=== PATIENT | female | born 1935 | race Caucasian/White ===

== ENCOUNTER → 2016-09-03 | Outpatient (REF) | payer OTHER ==
[~2016-09-03] MED LIST: /GLYB5TA PO; ACET65TA PO; FOSI10TA2 PO; LEVO25TA2 PO; METF500T4 PO; SIMV40TA2 PO; VICO5TAB OR; ZANT150T PO; sudafed PO
== END ==
LOC: M LAB REF 17:01
PROVIDERS: ATTEND Internal Medicine Medical Oncology
DX: C50.919 Malignant neoplasm of unspecified site of unspecified female breast (principal)

== ENCOUNTER → 2016-09-04 | Outpatient (REF) | payer OTHER | LOC: M SFHCADAM 07:58 | PROVIDERS: ATTEND Physician Assistant Medical | DX: E78.4 Other hyperlipidemia (principal); E11.9 Type 2 diabetes mellitus without complications; E03.9 Hypothyroidism, unspecified ==

== ENCOUNTER → 2016-09-08 | Outpatient (REF) | payer OTHER ==
[2016-09-08 13:52] LABS: BASO % 0.5 % (0.0-1.0); EOS # 0.2 K/mm3 (0.0-0.50); EOS % 3.9 % (0.0-3.0); LARGE UNSTAINED CELL # 0.1 K/mm3 (0.0-0.4); LARGE UNSTAINED CELL % 1.3 % (0.0-4.0); LYMPH # 1.8 K/mm3 (1.5-4.5); LYMPH % 27.4 % (24.0-44.0); MEAN CORPUSCULAR HEMOGLOBIN 28.1 pg (27.0-33.0); MEAN CORPUSCULAR HGB CONC 32.3 g/dl (32.0-36.5); MEAN CORPUSCULAR VOLUME 87.2 fl (80.0-96.0); MONO # 0.4 K/mm3 (0.0-0.8); MONO % 6.1 % (0.0-5.0); NEUTROPHILS # 3.9 K/mm3 (1.8-7.7); NEUTROPHILS % 60.9 % (36.0-66.0); PLATELET COUNT, AUTOMATED 185 k/mm3 (150-450); RED CELL DISTRIBUTION WIDTH 12.4 % (11.5-14.5); WHITE BLOOD COUNT 6.3 K/mm3 (4.0-10.0)
[2016-09-08 14:12] LABS: ALBUMIN/GLOBULIN RATIO 1.43 (1.00-1.93); ALKALINE PHOSPHATASE 80 U/L (45-117); ALT/SGPT 48 U/L (12-78); ANION GAP 9 MEQ/L (8-16); AST/SGOT 29 U/L (15-37); BILIRUBIN,TOTAL 0.6 MG/DL (0.2-1.0); BLOOD UREA NITROGEN 16 MG/DL (7-18); CALCIUM LEVEL 9.8 MG/DL (8.8-10.2); CARBON DIOXIDE LEVEL 25 MEQ/L (21-32); CHLORIDE LEVEL 105 MEQ/L (98-107); CHOLESTEROL LEVEL 147 MG/DL (<200); CREATININE FOR GFR 0.94 MG/DL (0.55-1.02); GLOMERULAR FILTRATION RATE > 60.0 (>39); GLUCOSE, FASTING 276 MG/DL (83-110); POTASSIUM SERUM 4.8 MEQ/L (3.5-5.1); SODIUM LEVEL 139 MEQ/L (136-145); TOTAL PROTEIN 6.8 GM/DL (6.4-8.2); TRIGLYCERIDES LEVEL 157 MG/DL (<150)
== END ==
LOC: M SFHCADAM 07:55
PROVIDERS: ATTEND Physician Assistant Medical
DX: E78.4 Other hyperlipidemia (principal); E11.9 Type 2 diabetes mellitus without complications; E03.9 Hypothyroidism, unspecified

== ENCOUNTER → 2016-12-23 | Outpatient (REF) | payer OTHER ==
[~2016-12-23] MED LIST changes: +AUGM875T28 PO; +NYST50SS SS
[2016-12-23 13:03] LABS: ALBUMIN 3.8 GM/DL (3.2-5.2); ALBUMIN/GLOBULIN RATIO 1.27 (1.00-1.93); BILIRUBIN,TOTAL 0.4 MG/DL (0.2-1.0); CALCIUM LEVEL 9.9 MG/DL (8.8-10.2); CREATININE FOR GFR 1.03 MG/DL (0.55-1.02); POTASSIUM SERUM 4.3 MEQ/L (3.5-5.1); TOTAL PROTEIN 6.8 GM/DL (6.4-8.2)
== END ==
LOC: M SFHCADAM 08:03
PROVIDERS: ATTEND Physician Assistant Medical
DX: E11.9 Type 2 diabetes mellitus without complications (principal)

== ENCOUNTER → 2017-02-25 | Outpatient (REF) | payer OTHER ==
[2017-02-25 20:21] LABS: FOLATE 12.3 NG/ML
== END ==
LOC: M SFHCADAM 13:53
PROVIDERS: ATTEND Physician Assistant
DX: K14.6 Glossodynia (principal); G62.9 Polyneuropathy, unspecified
CPT/HCPCS: 82607; 82746; G0463

== ENCOUNTER 2017-03-01 04:01 | Emergency (ER) | payer OTHER ==
[~2017-03-01] VITALS: Ht 170.2 cm; Wt 82.0 kg
[~2017-03-01 04:01] MED LIST changes: -AUGM875T28 PO; -NYST50SS SS
[2017-03-01] MEDS ORDERED: NYST50SS SS (04:12)
[2017-03-01] MEDS ORDERED: AUGM875T28 PO (06:35)
[2017-03-01] MEDS ORDERED: AUGMENTIN 875 MG TAB PO ONE (06:45)
[2017-03-01 07:03] VITALS: BP 177/81
== END 2017-03-01 07:05 | disposition home or self-care (01) ==
LOC: M ED 04:01
DX: J06.9 Acute upper respiratory infection, unspecified (principal); J02.9 Acute pharyngitis, unspecified; J44.9 Chronic obstructive pulmonary disease, unspecified; Z87.891 Personal history of nicotine dependence; E78.00 Pure hypercholesterolemia, unspecified; I10 Essential (primary) hypertension; K21.9 Gastro-esophageal reflux disease without esophagitis; C50.919 Malignant neoplasm of unspecified site of unspecified female breast; E11.9 Type 2 diabetes mellitus without complications; E03.9 Hypothyroidism, unspecified; M54.5 Low back pain; Z79.84 Long term (current) use of oral hypoglycemic drugs; Z79.899 Other long term (current) drug therapy

== ENCOUNTER → 2017-06-29 | Outpatient (REF) | payer OTHER ==
[2017-06-29 13:39] LABS: BASO # 0.1 10^3/uL (0.0-0.2); BASO % 0.9 % (0.0-1.0); EOS # 0.2 10^3/uL (0.0-0.50); EOS % 3.5 % (0.0-3.0); HEMATOCRIT 42.2 % (36.0-47.0); HEMOGLOBIN 13.4 g/dl (12.0-16.0); IMMATURE GRANULOCYTE % 0.3 % (0-0); LYMPH # 1.5 10^3/uL (1.5-4.5); LYMPH % 23.4 % (24.0-44.0); MEAN CORPUSCULAR HEMOGLOBIN 27.5 pg (27.0-33.0); MEAN CORPUSCULAR HGB CONC 31.8 g/dl (32.0-36.5); MEAN CORPUSCULAR VOLUME 86.7 fl (80.0-96.0); MONO # 0.5 10^3/uL (0.0-0.8); MONO % 7.3 % (0.0-5.0); NEUTROPHILS # 4.3 10^3/uL (1.8-7.7); NEUTROPHILS % 64.6 % (36.0-66.0); PLATELET COUNT, AUTOMATED 169 10^3/uL (150-450); RED BLOOD COUNT 4.87 10^6/uL (4.00-5.40); RED CELL DISTRIBUTION WIDTH 13.1 % (11.5-14.5); WHITE BLOOD COUNT 6.6 10^3/uL (4.0-10.0)
[2017-06-29 14:00] LABS: ESTIMATED AVERAGE GLUCOSE 212 MG/DL (60-110); TOTAL 25(OH) VITAMIN D 14.2 NG/ML (30.0-100.0)
[2017-06-29 14:09] LABS: ALBUMIN 3.7 GM/DL (3.2-5.2); ALBUMIN/GLOBULIN RATIO 1.19 (1.00-1.93); ALKALINE PHOSPHATASE 76 U/L (45-117); ALT/SGPT 31 U/L (12-78); ANION GAP 9 MEQ/L (8-16); AST/SGOT 29 U/L (7-37); BILIRUBIN,TOTAL 0.4 MG/DL (0.2-1.0); BLOOD UREA NITROGEN 15 MG/DL (7-18); CARBON DIOXIDE LEVEL 24 MEQ/L (21-32); CHLORIDE LEVEL 109 MEQ/L (98-107); CHOLESTEROL LEVEL 148 MG/DL (<200); CREATININE FOR GFR 0.88 MG/DL (0.55-1.30); FREE T4 1.07 NG/DL (0.76-1.46); GLOMERULAR FILTRATION RATE > 60.0 (>32); GLUCOSE, FASTING 230 MG/DL (70-100); HDL CHOLESTEROL 54 MG/DL (>40); LDL CHOLESTEROL 57.8 MG/DL (<100); NON-HDL-C 94 MG/DL; POTASSIUM SERUM 4.4 MEQ/L (3.5-5.1); SODIUM LEVEL 142 MEQ/L (136-145); TOTAL PROTEIN 6.8 GM/DL (6.4-8.2); TRIGLYCERIDES LEVEL 181 MG/DL (<150)
[2017-06-29 20:27] LABS: CREATININE, URINE 65.3 MG/DL; MALB URINE SIEMENS 6.8 MG/L; MAU/CREAT RATIO 10.4 MCG/MG (0.0-30.0)
== END ==
LOC: M SFHCADAM 08:10
DX: E11.9 Type 2 diabetes mellitus without complications (principal); E78.4 Other hyperlipidemia; E03.9 Hypothyroidism, unspecified; G62.9 Polyneuropathy, unspecified
CPT/HCPCS: 84443

== ENCOUNTER → 2017-10-12 | Outpatient (REF) | payer OTHER | LOC: M SFHCADAM 08:19 | DX: E11.9 Type 2 diabetes mellitus without complications (principal); E03.9 Hypothyroidism, unspecified; Z53.8 Procedure and treatment not carried out for other reasons ==

== ENCOUNTER → 2017-11-03 | Outpatient (CLI) | payer OTHER | LOC: M WHC 13:05 | DX: Z12.31 Encounter for screening mammogram for malignant neoplasm of breast (principal); Z90.12 Acquired absence of left breast and nipple; Z85.3 Personal history of malignant neoplasm of breast; Z80.3 Family history of malignant neoplasm of breast | CPT/HCPCS: 77067 ==

== ENCOUNTER 2017-11-29 21:41 | Emergency (ER) | payer OTHER ==
[2017-11-29] MEDS: ACETAMINOPH W/CODEINE #3 TAB UD PO (23:27)
[2017-11-29] MEDS: KETOROLAC TROMETHAMINE 10 MG TAB PO (23:27)
== END 2017-11-30 00:29 | disposition home or self-care (01) ==
LOC: M ED 11-30 00:29
DX: M54.2 Cervicalgia (principal); M19.90 Unspecified osteoarthritis, unspecified site; M54.12 Radiculopathy, cervical region; E11.9 Type 2 diabetes mellitus without complications; I10 Essential (primary) hypertension; E78.00 Pure hypercholesterolemia, unspecified; Z85.3 Personal history of malignant neoplasm of breast; Z90.12 Acquired absence of left breast and nipple; Z87.891 Personal history of nicotine dependence; Z79.84 Long term (current) use of oral hypoglycemic drugs; Z79.899 Other long term (current) drug therapy; Z79.891 Long term (current) use of opiate analgesic
CPT/HCPCS: 72125

== ENCOUNTER → 2018-02-04 | Outpatient (REF) | payer OTHER ==
[2018-02-04 15:27] LABS: ALBUMIN 3.8 GM/DL (3.2-5.2); ALBUMIN/GLOBULIN RATIO 1.31 (1.00-1.93); ALKALINE PHOSPHATASE 70 U/L (45-117); ALT/SGPT 31 U/L (12-78); ANION GAP 9 MEQ/L (8-16); AST/SGOT 23 U/L (7-37); BILIRUBIN,TOTAL 0.4 MG/DL (0.2-1.0); BLOOD UREA NITROGEN 16 MG/DL (7-18); CALCIUM LEVEL 10.6 MG/DL (8.8-10.2); CARBON DIOXIDE LEVEL 24 MEQ/L (21-32); CHLORIDE LEVEL 110 MEQ/L (98-107); CREATININE FOR GFR 0.89 MG/DL (0.55-1.30); GLOMERULAR FILTRATION RATE > 60.0 (>32); GLUCOSE, FASTING 176 MG/DL (70-100); POTASSIUM SERUM 4.4 MEQ/L (3.5-5.1); SODIUM LEVEL 143 MEQ/L (136-145); TOTAL PROTEIN 6.7 GM/DL (6.4-8.2)
[2018-02-04 15:44] LABS: ESTIMATED AVERAGE GLUCOSE 243 MG/DL (60-110); HEMOGLOBIN A1c 10.1 %
== END ==
LOC: M SFHCADAM 08:09
DX: E11.42 Type 2 diabetes mellitus with diabetic polyneuropathy (principal)
CPT/HCPCS: 80053

== ENCOUNTER → 2018-04-12 | Outpatient (REF) | payer OTHER ==
[2018-04-12 13:32] LABS: ALBUMIN 3.5 GM/DL (3.2-5.2); ALBUMIN/GLOBULIN RATIO 1.17 (1.00-1.93); ALKALINE PHOSPHATASE 81 U/L (45-117); ALT/SGPT 31 U/L (12-78); ANION GAP 11 MEQ/L (8-16); AST/SGOT 23 U/L (7-37); BILIRUBIN,TOTAL 0.4 MG/DL (0.2-1.0); BLOOD UREA NITROGEN 12 MG/DL (7-18); CALCIUM LEVEL 9.8 MG/DL (8.8-10.2); CARBON DIOXIDE LEVEL 22 MEQ/L (21-32); CHLORIDE LEVEL 111 MEQ/L (98-107); CHOLESTEROL LEVEL 133 MG/DL (<200); CHOLESTEROL RISK RATIO 2.607 (<5); CREATININE FOR GFR 1.01 MG/DL (0.55-1.30); GLOMERULAR FILTRATION RATE 56.1 (>32); GLUCOSE, FASTING 253 MG/DL (70-100); HDL CHOLESTEROL 51 MG/DL (>40); LDL CHOLESTEROL 35 MG/DL (<100); NON-HDL-C 82 MG/DL; POTASSIUM SERUM 4.2 MEQ/L (3.5-5.1); SODIUM LEVEL 144 MEQ/L (136-145); TOTAL PROTEIN 6.5 GM/DL (6.4-8.2); TRIGLYCERIDES LEVEL 236 MG/DL (<150)
[2018-04-12 14:03] LABS: ESTIMATED AVERAGE GLUCOSE 232 MG/DL (60-110); HEMOGLOBIN A1c 9.7 %
== END ==
LOC: M SFHCADAM 08:47
DX: E11.42 Type 2 diabetes mellitus with diabetic polyneuropathy (principal)
CPT/HCPCS: 84443

== ENCOUNTER → 2018-08-17 | Outpatient (REF) | payer OTHER ==
[~2018-08-17] MED LIST changes: +ACET-683 PO; +ACET30TAB PO; +ANAS1TAB2; +AUGM875T28 PO; +GABA-1171 PO; +JANU100T; +LEVE1INJ5 INJ; +LEVO50TA5; +METF10004; +NAPR250T82 PO; +NYST50SS SS; +RANI1SYP PO; +TRAM50TA2; +VITA50005 PO; +[UNRECOGNIZED DRUG - CODE] PO
[2018-08-17 12:50] LABS: BASO # 0.1 10^3/uL (0.0-0.2); BASO % 0.7 % (0.0-1.0); EOS # 0.3 10^3/uL (0.0-0.50); EOS % 3.7 % (0.0-3.0); HEMATOCRIT 43.1 % (36.0-47.0); HEMOGLOBIN 13.7 g/dl (12.0-15.5); LYMPH # 1.7 10^3/uL (1.5-4.5); MEAN CORPUSCULAR HEMOGLOBIN 27.5 pg (27.0-33.0); MEAN CORPUSCULAR HGB CONC 31.8 g/dl (32.0-36.5); MEAN CORPUSCULAR VOLUME 86.4 fl (80.0-96.0); MONO # 0.6 10^3/uL (0.0-0.8); MONO % 7.6 % (0.0-5.0); NEUTROPHILS % 65.7 % (36.0-66.0); PLATELET COUNT, AUTOMATED 177 10^3/uL (150-450); RED BLOOD COUNT 4.99 10^6/uL (4.00-5.40); WHITE BLOOD COUNT 7.6 10^3/uL (4.0-10.0)
[2018-08-17 12:59] LABS: ALBUMIN 3.9 GM/DL (3.2-5.2); BILIRUBIN,TOTAL 0.5 MG/DL (0.2-1.0); CHOLESTEROL RISK RATIO 2.618 (<5); CREATININE FOR GFR 1.18 MG/DL (0.55-1.30); FREE T4 1.08 NG/DL (0.76-1.46); GLOMERULAR FILTRATION RATE 46.8 (>32); POTASSIUM SERUM 3.9 MEQ/L (3.5-5.1); THYROID STIMULATING HORMONE 3.67 uIU/ML (0.358-3.740); TOTAL PROTEIN 7.2 GM/DL (6.4-8.2)
[2018-08-17 13:12] LABS: MALB URINE SIEMENS 20.3 MG/L; MAU/CREAT RATIO 14.7 MCG/MG (0.0-30.0)
[2018-08-17 13:35] LABS: HEMOGLOBIN A1c 8.5 %
== END ==
LOC: M SFHCADAM 10:30
PROVIDERS: ATTEND Physician Assistant Medical
DX: E11.42 Type 2 diabetes mellitus with diabetic polyneuropathy (principal)

== ENCOUNTER → 2018-08-25 | Outpatient (REF) | payer OTHER ==
[~2018-08-25] MED LIST changes: -/GLYB5TA PO; +ACET-716 PO; -ACET30TAB PO; +GLYB1TAB29 PO
== END ==
LOC: M LABDRWAD 12:13
PROVIDERS: ATTEND Otolaryngology
DX: D37.02 Neoplasm of uncertain behavior of tongue (principal)

== ENCOUNTER → 2019-02-21 | Outpatient (REF) | payer MEDICARE, OTHER ==
[2019-02-21 12:58] LABS: BASO # 0.1 10^3/uL (0.0-0.2); EOS # 0.3 10^3/uL (0.0-0.5); EOS % 3.9 % (0.0-3.0); HEMATOCRIT 45.9 % (36.0-47.0); HEMOGLOBIN 14.3 g/dl (12.0-15.5); LYMPH # 1.9 10^3/uL (1.5-5.0); LYMPH % 25.8 % (24.0-44.0); MEAN CORPUSCULAR HGB CONC 31.2 g/dl (32.0-36.5); MONO # 0.5 10^3/uL (0.0-0.8); MONO % 7.5 % (0.0-5.0); NEUTROPHILS # 4.4 10^3/uL (1.5-8.5); NEUTROPHILS % 61.4 % (36.0-66.0); PLATELET COUNT, AUTOMATED 188 10^3/uL (150-450); WHITE BLOOD COUNT 7.2 10^3/uL (4.0-10.0)
[2019-02-21 13:11] LABS: ALBUMIN 3.9 GM/DL (3.2-5.2); ALT/SGPT 41 U/L (12-78); BILIRUBIN,TOTAL 0.6 MG/DL (0.2-1.0); BLOOD UREA NITROGEN 15 MG/DL (7-18); CALCIUM LEVEL 10.6 MG/DL (8.8-10.2); CARBON DIOXIDE LEVEL 24 MEQ/L (21-32); CHLORIDE LEVEL 108 MEQ/L (98-107); CHOLESTEROL LEVEL 164 MG/DL (<200); CHOLESTEROL RISK RATIO 2.928 (<5); CREATININE FOR GFR 0.89 MG/DL (0.55-1.30); GLOMERULAR FILTRATION RATE > 60.0 (>32); GLUCOSE, FASTING 138 MG/DL (70-100); HDL CHOLESTEROL 56 MG/DL (>40); LDL CHOLESTEROL 76 MG/DL (<100); NON-HDL-C 108 MG/DL; POTASSIUM SERUM 4.3 MEQ/L (3.5-5.1); SODIUM LEVEL 141 MEQ/L (136-145); TOTAL 25(OH) VITAMIN D 72.5 NG/ML (30.0-100.0); TOTAL PROTEIN 7.3 GM/DL (6.4-8.2); TRIGLYCERIDES LEVEL 162 MG/DL (<150)
[2019-02-21 13:15] LABS: HEMOGLOBIN A1c 8.6 %
== END ==
LOC: M SFHCADAM 07:51
PROVIDERS: ATTEND Physician Assistant Medical
DX: E11.42 Type 2 diabetes mellitus with diabetic polyneuropathy (principal); E78.2 Mixed hyperlipidemia; E03.9 Hypothyroidism, unspecified; E55.9 Vitamin D deficiency, unspecified
CPT/HCPCS: 80053; 80061; 82306; 83036; 84443; 85025; 93005; G0463

== ENCOUNTER → 2019-03-25 | Outpatient (CLI) | payer MEDICARE ==
--- NOTE | 2019-03-28 11:03 | ECHO ---
DATE OF SERVICE: 03/25/2019 AGE: 83. REFERRING PHYSICIAN: Sherin Keita PA-C PATIENT LOCATION: Outpatient. REASON FOR THE STUDY: Left ventricular hypertrophy. 2D MEASUREMENTS: IVS: 1.1 cm LV: 3.7 cm LVPW: 1.1 cm LA: 2.5 cm Aorta: 3.0 cm RV: 2.7 cm IVC: 1.6 cm DOPPLER MEASUREMENTS: Mitral E: 1.3 Mitral A: 1.6 with a ratio of 0.8 2D COMMENTS: 1. Normal left ventricular size, wall thickness, and normal global left ventricular systolic function. The estimated left ventricular systolic ejection fraction is 60% to 65%. 2. Normal left atrium. Normal right atrium and right ventricle. 3. The atrial septum appeared to be normal without evidence of defect or shunt. 4. Normal aortic root. 5. No pericardial effusion seen. 6. Minimally calcified aortic valve with normal leaflet excursion. Normal mitral valve, tricuspid valve, and pulmonic valve. The proximal pulmonary artery branches were not well visualized. 7. The inferior vena cava was normal in size, central venous pressure is most likely normal. DOPPLER: It detects trace mitral regurgitation and trace tricuspid regurgitation, as well as trace pulmonic regurgitation. The pulmonary artery systolic pressure is most likely normal. IMPRESSION: 1. Normal global left ventricular systolic function. There are some features of left ventricular diastolic dysfunction. There were some features of grade 1 left ventricular diastolic dysfunction manifested by abnormal relaxation. 2. Aortic valve sclerosis without stenosis or aortic regurgitation. 3. Trace mitral regurgitation. 4. Trace tricuspid regurgitation. 5. Trace pulmonic regurgitation.
== END ==
LOC: M CARPUL 08:33
PROVIDERS: ATTEND Physician Assistant Medical
DX: I49.5 Sick sinus syndrome (principal); I48.91 Unspecified atrial fibrillation

== ENCOUNTER → 2019-05-20 | Outpatient (CLI) | payer MEDICARE ==
[~2019-05-20] MED LIST changes: +CONRAY-43 43% 50ML VIAL (Q9960) As Ordered ONE; +LIDOCAINE 1% MDV 20ML VIAL As Ordered ONE; +SIMV40TA20 PO; +TRIAMCINOLONE ACETONIDE SUSP 40 MG/ML VIAL (J3301) As Ordered ONE
--- NOTE | 2019-05-20 17:17 | REP ---
Reason For Exam/Comment: Primary osteoarthritis of the left ankle Procedure: Left tibiotalar arthrocentesis The procedure was performed by MYLENE Macias, under the direct supervision of Dr. Rain. The benefits and risks including but not limited to pain, infection, bleeding and anaphylaxis were explained to the patient and informed consent was obtained both verbally and written. Directly prior to the start of the procedure, a formal timeout was completed in the procedure room. The left tibiotalar joint space was localized using fluoroscopic guidance. The skin was prepped and draped in the usual sterile fashion. 5 mL of 1% lidocaine 10 mg/ml was used as a local anesthetic. Using fluoroscopic guidance a 22-gauge spinal needle was inserted and advanced to the left tibiotalar joint space . 1 mL of Conray 43 was injected to verify needle placement. A 4 mL solution containing a 3 mL 1% lidocaine 10 mg/ml and 1 ml of Kenalog 40 mg/ml was injected into the joint. The needle was removed and hemostasis was achieved. The patient tolerated the procedure well and there were no immediate complications. 0.3 minutes of fluoroscopy time was utilized for this procedure. Some fluoroscopic images are performed with last image hold technology. These images require no additional radiation. Reviewed by MYLENE Youssef 05/20/2019 04:06 P Electronically Signed by Masood Rain MD 05/20/2019 05:08 P
== END ==
LOC: M RADPRO 13:18
PROVIDERS: ATTEND Physician Assistant Medical
DX: M19.072 Primary osteoarthritis, left ankle and foot (principal)
CPT/HCPCS: 20605; 77002; J3301; Q9960

== ENCOUNTER → 2019-09-10 | Outpatient (REF) | payer MEDICARE ==
[~2019-09-10] MED LIST changes: -CONRAY-43 43% 50ML VIAL (Q9960) As Ordered ONE; -LIDOCAINE 1% MDV 20ML VIAL As Ordered ONE; -TRIAMCINOLONE ACETONIDE SUSP 40 MG/ML VIAL (J3301) As Ordered ONE
[2019-09-10 17:35] LABS: ALT/SGPT 33 U/L (12-78); BLOOD UREA NITROGEN 16 MG/DL (7-18); CALCIUM LEVEL 10.1 MG/DL (8.8-10.2); CARBON DIOXIDE LEVEL 26 MEQ/L (21-32); CHLORIDE LEVEL 110 MEQ/L (98-107); CREATININE FOR GFR 0.84 MG/DL (0.55-1.30); GLOMERULAR FILTRATION RATE > 60.0 (>32); GLUCOSE, FASTING 155 MG/DL (70-100); POTASSIUM SERUM 4.5 MEQ/L (3.5-5.1); SODIUM LEVEL 142 MEQ/L (136-145)
[2019-09-10 17:36] LABS: ALBUMIN 3.7 GM/DL (3.2-5.2); BILIRUBIN,TOTAL 0.5 MG/DL (0.2-1.0); CHOLESTEROL LEVEL 141 MG/DL (<200); CHOLESTEROL RISK RATIO 2.764 (<5); HDL CHOLESTEROL 51 MG/DL (>40); LDL CHOLESTEROL 58 MG/DL (<100); NON-HDL-C 90 MG/DL; TOTAL PROTEIN 6.8 GM/DL (6.4-8.2); TRIGLYCERIDES LEVEL 158 MG/DL (<150)
[2019-09-10 17:38] LABS: HEMOGLOBIN A1c 8.9 %
[2019-09-12 10:14] LABS: TOTAL 25(OH) VITAMIN D 66.5 NG/ML (30.0-100.0)
[2019-09-12 15:04] LABS: CREATININE, URINE 73.2 MG/DL; MAU/CREAT RATIO 9.5 MCG/MG (0.0-30.0)
== END ==
LOC: M SFHCADAM 08:53
PROVIDERS: ATTEND Physician Assistant Medical
DX: E11.42 Type 2 diabetes mellitus with diabetic polyneuropathy (principal); E78.2 Mixed hyperlipidemia; E03.9 Hypothyroidism, unspecified; E55.9 Vitamin D deficiency, unspecified; Z79.899 Other long term (current) drug therapy

== ENCOUNTER → 2019-09-10 | Outpatient (CLI) | payer MEDICARE | LOC: M ADAMS 09:57 | PROVIDERS: ATTEND Physician Assistant Medical | DX: E11.42 Type 2 diabetes mellitus with diabetic polyneuropathy (principal); E78.2 Mixed hyperlipidemia; E03.9 Hypothyroidism, unspecified ==

== ENCOUNTER → 2020-02-28 | Outpatient (REF) | payer MEDICARE ==
[2020-02-28 13:44] LABS: BASO # 0.1 10^3/uL (0.0-0.2); BASO % 0.9 % (0.0-1.0); EOS # 0.3 10^3/uL (0.0-0.5); EOS % 4.6 % (0.0-3.0); HEMATOCRIT 39.5 % (36.0-47.0); HEMOGLOBIN 12.3 g/dl (12.0-15.5); LYMPH # 2.2 10^3/uL (1.5-5.0); LYMPH % 32.2 % (24.0-44.0); MEAN CORPUSCULAR HEMOGLOBIN 27.8 pg (27.0-33.0); MEAN CORPUSCULAR HGB CONC 31.1 g/dl (32.0-36.5); MEAN CORPUSCULAR VOLUME 89.4 fl (80.0-96.0); MONO # 0.5 10^3/uL (0.0-0.8); MONO % 7.8 % (0.0-5.0); NEUTROPHILS # 3.7 10^3/uL (1.5-8.5); NEUTROPHILS % 54.2 % (36.0-66.0); PLATELET COUNT, AUTOMATED 203 10^3/uL (150-450); RED BLOOD COUNT 4.42 10^6/uL (4.00-5.40); WHITE BLOOD COUNT 6.8 10^3/uL (4.0-10.0)
[2020-02-28 14:28] LABS: ALBUMIN 3.6 GM/DL (3.2-5.2); ALT/SGPT 31 U/L (12-78); BILIRUBIN,TOTAL 0.4 MG/DL (0.2-1.0); BLOOD UREA NITROGEN 11 MG/DL (7-18); CALCIUM LEVEL 10.7 MG/DL (8.8-10.2); CARBON DIOXIDE LEVEL 23 MEQ/L (21-32); CHLORIDE LEVEL 111 MEQ/L (98-107); CHOLESTEROL LEVEL 125 MG/DL (<200); CHOLESTEROL RISK RATIO 2.314 (<5); CREATININE FOR GFR 0.78 MG/DL (0.55-1.30); GLOMERULAR FILTRATION RATE > 60.0 (>32); GLUCOSE, FASTING 111 MG/DL (70-100); HDL CHOLESTEROL 54 MG/DL (>40); LDL CHOLESTEROL 49 MG/DL (<100); NON-HDL-C 71 MG/DL; POTASSIUM SERUM 4.5 MEQ/L (3.5-5.1); SODIUM LEVEL 142 MEQ/L (136-145); TOTAL PROTEIN 6.8 GM/DL (6.4-8.2); TRIGLYCERIDES LEVEL 111 MG/DL (<150)
[2020-02-28 14:55] LABS: HEMOGLOBIN A1c 7.3 %
== END ==
LOC: M SFHCADAM 09:07
PROVIDERS: ATTEND Physician Assistant Medical
DX: E11.42 Type 2 diabetes mellitus with diabetic polyneuropathy (principal); I10 Essential (primary) hypertension; E03.9 Hypothyroidism, unspecified; K21.9 Gastro-esophageal reflux disease without esophagitis

== ENCOUNTER → 2020-04-09 | Outpatient (CLI) | payer MEDICARE ==
--- NOTE | 2020-04-09 11:45 | REPMRS ---
Patient History The patient states she has not had a clinical breast exam in over a year. Family history of breast cancer at age 50 or over in sister, prostate cancer at age 50 or over in brother, prostate cancer in brother. Mastectomy of the left breast, 2011. No Hormone Replacement Therapy 3D TOMOSYNTHESIS WAS PERFORMED. Volpara breast density b. Digital Woman Screen Mammo: April 09, 2020 - Exam #: [id number] CC and MLO view(s) were taken of the right breast. Technologist: Rhonda Ashby, Technologist Prior study comparison: November 03, 2017, bilateral digital woman screen mammo performed at [facility]. April 15, 2016, digital woman screen mammo performed at [facility]. FINDINGS: There are scattered fibroglandular densities. There has been no change in the appearance of the mammogram from the prior studies. There is a mild amount of residual fibroglandular tissue. There is no interval development of dominant mass, architectural distortion, or clustered microcalcification suggestive of malignancy. No significant changes when compared with prior studies. Assessment: BI-RADS/ACR category 1 mammogram. Negative Mammogram. Recommendation Routine screening mammogram in 1 year (for women over age 40). This mammogram was interpreted with the aid of an FDA-approved computer-aided dectection system. Electronically Signed By: Masood Rain MD 04/09/20 [id number]
== END ==
LOC: M WHC 09:54
PROVIDERS: ATTEND Nurse Practitioner Women's Health
DX: Z12.31 Encounter for screening mammogram for malignant neoplasm of breast (principal); Z80.3 Family history of malignant neoplasm of breast

== ENCOUNTER → 2020-08-13 | Outpatient (REF) | payer MEDICARE ==
[2020-08-13 12:54] LABS: BASO # 0.1 10^3/uL (0.0-0.2); BASO % 0.9 % (0.0-1.0); EOS # 0.4 10^3/uL (0.0-0.5); EOS % 5.2 % (0.0-3.0); HEMATOCRIT 41.5 % (36.0-47.0); HEMOGLOBIN 12.9 g/dl (12.0-15.5); LYMPH # 1.9 10^3/uL (1.5-5.0); LYMPH % 25.9 % (24.0-44.0); MEAN CORPUSCULAR HEMOGLOBIN 27.3 pg (27.0-33.0); MEAN CORPUSCULAR HGB CONC 31.1 g/dl (32.0-36.5); MEAN CORPUSCULAR VOLUME 87.9 fl (80.0-96.0); MONO # 0.6 10^3/uL (0.0-0.8); NEUTROPHILS # 4.5 10^3/uL (1.5-8.5); NEUTROPHILS % 59.7 % (36.0-66.0); PLATELET COUNT, AUTOMATED 165 10^3/uL (150-450); RED BLOOD COUNT 4.72 10^6/uL (4.00-5.40); WHITE BLOOD COUNT 7.5 10^3/uL (4.0-10.0)
[2020-08-13 13:50] LABS: HEMOGLOBIN A1c 7.4 %
[2020-08-13 14:13] LABS: MALB URINE SIEMENS 50.9 MG/L; MAU/CREAT RATIO 41.3 MCG/MG (0.0-30.0)
[2020-08-13 14:24] LABS: ALBUMIN 3.5 GM/DL (3.2-5.2); ALT/SGPT 28 U/L (12-78); BILIRUBIN,TOTAL 0.3 MG/DL (0.2-1.0); BLOOD UREA NITROGEN 12 MG/DL (7-18); CARBON DIOXIDE LEVEL 26 MEQ/L (21-32); CHLORIDE LEVEL 111 MEQ/L (98-107); CHOLESTEROL LEVEL 136 MG/DL (<200); CHOLESTEROL RISK RATIO 2.385 (<5); CREATININE FOR GFR 0.84 MG/DL (0.55-1.30); GLOMERULAR FILTRATION RATE > 60.0 (>32); GLUCOSE, FASTING 185 MG/DL (70-100); HDL CHOLESTEROL 57 MG/DL (>40); LDL CHOLESTEROL 46 MG/DL (<100); NON-HDL-C 79 MG/DL; POTASSIUM SERUM 4.4 MEQ/L (3.5-5.1); SODIUM LEVEL 143 MEQ/L (136-145); TOTAL PROTEIN 6.6 GM/DL (6.4-8.2); TRIGLYCERIDES LEVEL 166 MG/DL (<150)
== END ==
LOC: M SFHCADAM 09:05
PROVIDERS: ATTEND Physician Assistant Medical
DX: E03.9 Hypothyroidism, unspecified (principal); K21.9 Gastro-esophageal reflux disease without esophagitis; E55.9 Vitamin D deficiency, unspecified; E11.42 Type 2 diabetes mellitus with diabetic polyneuropathy; E78.2 Mixed hyperlipidemia

== ENCOUNTER → 2020-08-17 | Outpatient (CLI) | payer MEDICARE ==
[~2020-08-17] MED LIST changes: +GASTROGRAFIN SOLUTION 30ML (Q9963) As Ordered ONE; +ISOVUE-370 76% 100ML VIAL As Ordered ONE
--- NOTE | 2020-08-17 17:37 | REP ---
INDICATION: RIGHT UPPER QUAD PAIN. COMPARISON: Comparison CT study January 09, 2011.. TECHNIQUE: Helical scanning is acquired and 3 mm axial images re-formatted. Coronal and sagittal MPR images are generated. The CT contrast enhancement dose is 100 mL of intravenous Isovue 370. Oral contrast was also administered. FINDINGS: Digital preliminary corporate logistics manager radiographs demonstrate an unremarkable bowel gas pattern. There are clips in right upper quadrant. Axial CT images demonstrate that the lung bases are clear. Patient is status post left mastectomy. There is no evidence of pleural effusion or upper abdominal ascites. There is mild diffuse fatty infiltration of the liver. No focal liver lesion is seen. The spleen is unremarkable. There is a small sliding-type hiatal hernia. There is minimal stable thickening of the adrenal glands consistent with adrenal hyperplasia unchanged. There are 2 or 3 focal calcifications in the pancreas which may reflect chronic pancreatitis. No evidence of acute pancreatitis is seen. No biliary ductal dilation is seen. No pancreatic mass or cyst is observed. There is a cyst in the upper pole of the left kidney which measures 1.9 cm in greatest diameter. No hydronephrosis is seen. A normal appendix is noted retrocecal. Small and large bowel loops are opacified with oral contrast. There is left colonic diverticulosis without CT evidence of diverticulitis. No obstructive lesion is seen. No uterine or ovarian abnormality is observed. Urinary bladder is unremarkable. No abdominal wall defect is seen. Bone window settings show no bony destructive lesion. IMPRESSION: Post cholecystectomy. Mild fatty infiltration of the liver. Punctate calcifications in the pancreas may reflect prior pancreatic inflammation. Small sliding hiatal hernia. Small cyst upper pole left kidney. Left colonic diverticulosis. No acute abnormality. <Electronically signed by Jori Bonner > 08/17/20 [id number]
== END ==
LOC: M RAD 13:36
PROVIDERS: ATTEND Physician Assistant Medical
DX: R10.11 Right upper quadrant pain (principal)
CPT/HCPCS: 74177; Q9963; Q9967

== ENCOUNTER 2020-09-14 13:09 | Emergency (ER) | payer MEDICARE ==
[~2020-09-14] VITALS: Ht 167.6 cm; Wt 79.8 kg
[~2020-09-14 13:09] MED LIST changes: +FOSI10TA PO; -GASTROGRAFIN SOLUTION 30ML (Q9963) As Ordered ONE; -ISOVUE-370 76% 100ML VIAL As Ordered ONE; -[UNRECOGNIZED DRUG - CODE] PO
--- NOTE | 2020-09-14 14:03 | REP ---
INDICATION: fall trauma COMPARISON: None. TECHNIQUE: AP, lateral, bilateral oblique views right wrist. FINDINGS: Evaluation for injury is significantly limited by osteopenia and advanced degenerative changes. A subtle nondisplaced intra-articular fracture of the distal radius cannot be excluded. Old ulnar styloid fracture identified. IMPRESSION: 1. Limited evaluation due to osteopenia and degenerative changes. 2. Cannot exclude nondisplaced intra-articular fracture of the distal radius. <Electronically signed by Brian Mathews > 09/14/20 [id number]
--- NOTE | 2020-09-14 14:50 | REP ---
INDICATION: fall. COMPARISON: None. TECHNIQUE: Axial CT images with multiplanar reformations. FINDINGS: No acute bleed or acute large vessel territorial infarct. Ventricles, cisterns and sulci are within normal limits. No mass effect or midline shift. No abnormal fluid collections. Scattered ill-defined hypodensities seen throughout the white matter is most consistent with sequelae of chronic microvascular ischemic disease. Paranasal sinuses and mastoid air cells are clear. IMPRESSION: No acute findings. Age-related volume loss. <Electronically signed by Sebastian Mitchell > 09/14/20 [id number]
--- NOTE | 2020-09-14 14:52 | REP ---
INDICATION: fall. COMPARISON: None. TECHNIQUE: Axial CT images with multiplanar reformations. FINDINGS: No evidence of fracture or subluxation. There is diffuse degenerative change with osteopenia. There is degenerative change at the atlantoaxial joint at midline with joint space narrowing and sclerotic changes. Osteophytes narrow the neural foramen at C3-4 and C4-5, greater on the left. Prevertebral soft tissues within normal limits. No evidence of lymphadenopathy. IMPRESSION: No acute findings. Degenerative changes. <Electronically signed by Sebastian Mitchell > 09/14/20 [id number]
--- NOTE | 2020-09-14 15:13 | REP ---
INDICATION: fall COMPARISON: None. TECHNIQUE: AP, lateral, bilateral oblique views right hand. FINDINGS: Osteopenia and advanced degenerative changes are appreciated. No obvious acute fracture or dislocation identified. IMPRESSION: Osteopenia and degenerative changes. No obvious acute fracture or dislocation. <Electronically signed by Brian Mathews > 09/14/20 [id number]
--- NOTE | 2020-09-14 15:19 | REP ---
INDICATION: R rib pain s/p fall COMPARISON: None. TECHNIQUE: Frontal view of the chest with four views of the right hemithorax. FINDINGS: Frontal view of the chest demonstrates no acute cardiopulmonary process, contusion, effusion, or pneumothorax. Multiple views of the right hemithorax demonstrates no acute rib fracture/injury or pathology. IMPRESSION: Normal rib series. <Electronically signed by Brian Mathews > 09/14/20 [id number]
[2020-09-14 15:59] VITALS: BP 160/73
== END 2020-09-14 16:03 | disposition home or self-care (01) ==
LOC: M ED 13:09
DX: S52.501A Unspecified fracture of the lower end of right radius, initial encounter for closed fracture (principal); S20.211A Contusion of right front wall of thorax, initial encounter; S09.90XA Unspecified injury of head, initial encounter; M85.80 Other specified disorders of bone density and structure, unspecified site; W01.0XXA Fall on same level from slipping, tripping and stumbling without subsequent striking against object, initial encounter; Y92.009 Unspecified place in unspecified non-institutional (private) residence as the place of occurrence of the external cause; Y93.9 Activity, unspecified; Y99.9 Unspecified external cause status; E11.9 Type 2 diabetes mellitus without complications; I10 Essential (primary) hypertension; E78.5 Hyperlipidemia, unspecified; K21.9 Gastro-esophageal reflux disease without esophagitis; E03.9 Hypothyroidism, unspecified; M54.5 Low back pain; Z85.3 Personal history of malignant neoplasm of breast; Z92.21 Personal history of antineoplastic chemotherapy; Z79.4 Long term (current) use of insulin; Z79.899 Other long term (current) drug therapy

== ENCOUNTER 2021-01-23 19:05 | Observation (INO) | payer MEDICARE ==
[~2021-01-23] VITALS: Ht 167.6 cm; Wt 78.2 kg
[2021-01-23 21:26] LABS: BASO # 0.1 10^3/uL (0.0-0.2); BASO % 0.7 % (0.0-1.0); EOS # 0.2 10^3/uL (0.0-0.5); HEMOGLOBIN 13.5 g/dl (12.0-15.5); LYMPH # 2.5 10^3/uL (1.5-5.0); LYMPH % 22.1 % (24.0-44.0); MEAN CORPUSCULAR HEMOGLOBIN 28.1 pg (27.0-33.0); MEAN CORPUSCULAR HGB CONC 32.1 g/dl (32.0-36.5); MEAN CORPUSCULAR VOLUME 87.3 fl (80.0-96.0); MONO # 0.7 10^3/uL (0.0-0.8); MONO % 5.8 % (2.0-8.0); NEUTROPHILS # 7.7 10^3/uL (1.5-8.5); PLATELET COUNT, AUTOMATED 207 10^3/uL (150-450); RED BLOOD COUNT 4.81 10^6/uL (4.00-5.40); WHITE BLOOD COUNT 11.2 10^3/uL (4.0-10.0)
[2021-01-23 21:56] LABS: ALBUMIN 3.5 GM/DL (3.2-5.2); ALT/SGPT 30 U/L (12-78); BILIRUBIN,DIRECT < 0.1 MG/DL (0.0-0.2); BILIRUBIN,TOTAL 0.5 MG/DL (0.2-1.0); BLOOD UREA NITROGEN 14 MG/DL (7-18); CALCIUM LEVEL 10.7 MG/DL (8.8-10.2); CARBON DIOXIDE LEVEL 24 MEQ/L (21-32); CHLORIDE LEVEL 109 MEQ/L (98-107); CREATININE FOR GFR 0.85 MG/DL (0.55-1.30); GLOMERULAR FILTRATION RATE > 60.0 (>32); GLUCOSE, FASTING 167 MG/DL (70-100); LIPASE 213 U/L (73-393); POTASSIUM SERUM 5.6 MEQ/L (3.5-5.1); SODIUM LEVEL 139 MEQ/L (136-145); TOTAL PROTEIN 7.3 GM/DL (6.4-8.2)
--- NOTE | 2021-01-23 23:32 | REPVR ---
PROCEDURE INFORMATION: Exam: CT Abdomen And Pelvis Without Contrast Exam date and time: 01/23/2021 10:22 PM Age: 85 years old Clinical indication: Abdominal pain; Flank; Right; Additional info: Right flank pain R/O renal colic TECHNIQUE: Imaging protocol: Computed tomography of the abdomen and pelvis without contrast. Radiation optimization: All CT scans at this facility use at least one of these dose optimization techniques: automated exposure control; mA and/or kV adjustment per patient size (includes targeted exams where dose is matched to clinical indication); or iterative reconstruction. COMPARISON: CT ABD PELVIS WITH CONTRAST 08/17/2020 3:31 PM FINDINGS: Lungs: Minimal bibasilar bullous change and minimal fibro-atelectatic change. Mediastinal space: Minimal hiatal hernia. Liver: Normal. No mass. Gallbladder and bile ducts: Status post cholecystectomy. Pancreas: Coarse calcifications of the pancreas, particularly the head and uncinate. Spleen: Normal. No splenomegaly. Adrenal glands: Normal. No mass. Kidneys and ureters: No ureteral calculi. No hydronephrosis. Stomach and bowel: The proximal duodenal sweep demonstrates slight wall thickening and infiltration of fat which is primarily around the duodenum but does tangentially contact the pancreatic head. There is colonic diverticulosis without evidence of diverticulitis. Appendix: A normal appendix is seen. Intraperitoneal space: Unremarkable. No free air. No significant fluid collection. Vasculature: There is mild calcification of the abdominal aorta with extension into the iliac arteries. Lymph nodes: Unremarkable. No enlarged lymph nodes. Urinary bladder: Unremarkable as visualized. Reproductive: Unremarkable as visualized. Bones/joints: Lower lumbar facet arthropathy with mild anterolisthesis of L5 relative to S1. Soft tissues: Injection sites in the anterior abdominal wall fat over the pelvis. IMPRESSION: 1. Slight wall thickening of the 1st and 2nd portions of the duodenum with surrounding induration which does contact the pancreatic head and may reflect duodenitis or PUD. Groove pancreatitis is not excluded. 2. Coarse calcifications of the pancreas, particularly the head and uncinate consistent with residua of previous pancreatitis. 3. Status post cholecystectomy. 4. Minimal hiatal hernia. 5. Colonic diverticulosis without diverticulitis. 6. Otherwise negative CT abdomen/pelvis. No renal or ureteral calculi are evident and there is no evidence of obstructive uropathy. Electronically signed by: Javan Macedo On 01/23/2021 23:32:35 PM
[2021-01-24] MEDS ORDERED: NS 1,000 ML IV SCH (00:40)
--- NOTE | 2021-01-24 01:03 | REPVR ---
PROCEDURE INFORMATION: Exam: XR Chest Exam date and time: 01/24/2021 12:56 AM Age: 85 years old Clinical indication: Pain; Right-sided; Additional info: Admission TECHNIQUE: Imaging protocol: XR of the chest. Views: 1 view. COMPARISON: CR Ribs uni W-PA CHEST ONLY 09/14/2020 2:36 PM FINDINGS: Lungs: Unremarkable. No consolidation. Pleural spaces: Unremarkable. No pleural effusion. No pneumothorax. Heart/Mediastinum: Unremarkable. No cardiomegaly. Bones/joints: Unremarkable. Soft tissues: There are moderately generous overlying soft tissues. Left axillary surgical clips. Probable left mastectomy IMPRESSION: 1. Left mastectomy with left axillary nahid dissection. 2. Otherwise negative chest. No acute process is identified. Electronically signed by: Javan Mcaedo On 01/24/2021 01:02:53 AM
[2021-01-24] MEDS ORDERED: ACETAMINOPHEN TAB 650MG DOSE (2X325MG) PO PRN (01:35)
[2021-01-24 02:33] LABS: RSV AMPLIFICATION NEGATIVE (NEGATIVE)
[2021-01-24] MEDS ORDERED: GABA-1171 PO (02:44)
[2021-01-24] MEDS ORDERED: INSUDET SC (02:44)
[2021-01-24] MEDS ORDERED: FOSI10TA4 PO (02:44)
[2021-01-24] MEDS ORDERED: SYNT50TA PO (02:44)
[2021-01-24] MEDS ORDERED: SIMV40TA20 PO (02:44)
[2021-01-24] MEDS ORDERED: ANAS1TAB2 PO (02:44)
[2021-01-24] MEDS ORDERED: ERGO500029 PO (02:44)
[2021-01-24] MEDS ORDERED: METF10004 PO (02:44)
[2021-01-24] MEDS ORDERED: HOME MED LIST COMPLETE! XX SCH (02:45)
[2021-01-24] MEDS ORDERED: JANU100T PO (02:45)
[2021-01-24 03:05] VITALS: BP 125/86
[2021-01-24] MEDS ORDERED: DEXTROSE 50% 50 ML SYRINGE IV PRN (03:25)
[2021-01-24] MEDS ORDERED: GLUCOSE 4GM CHEW TABLET PO PRN (03:25)
[2021-01-24] MEDS ORDERED: GLUCAGON INJ 1MG VIAL SC PRN (03:25)
--- NOTE | 2021-01-24 04:14 | HPEPDOC ---
General Date of Admission Jan 24, 2021 Date of Service: Jan 24, 2021 Chief Complaint The patient is a 85-year-old female admitted with a reason for visit of Chronic Pancreatitis, Duodenitis. Source: Patient History of Present Illness Mrs. Alexandra is an 85-year-old female with diabetes mellitus, hypothyroidism, and hypertension who presents with abdominal pain. For the past month to month and a half, she has been having on and off abdominal pain. Abdominal pain is located in the right upper quadrant radiates towards her back. Denies radiation up to her shoulder. Is an achy 8 out of 10 pain. Pain is made worse with food. She does get nauseous and she dry heaves. In the past week, the pain has gone worse where she does not have an appetite. She came to the ED for evaluation. While in the ED her lipase was 213 which is not elevated. CT of the abdomen pelvis without contrast demonstrates pancreatic calcification. It also demonstrates possible duodenitis or peptic ulcer disease. In addition groove pancreatitis is not excluded. When I saw the patient, she told me that she did not have an appetite before. The last time she ate was the day before yester day. Now she is feeling like she could eat something. Patient will be placed in observation for abdominal pain Home Medications Scheduled Anastrozole (Anastrozole) 1 Mg Tablet, 1 MG PO DAILY, (Reported) Ergocalciferol (Vitamin D2) (Vitamin D2) 50,000 Units Cap, 50,000 UNITS PO QWEEK, (Reported) MONDAYS Fosinopril Sodium (Fosinopril Sodium) 10 Mg Tablet, 10 MG PO QHS, (Reported) Gabapentin (Gabapentin) 100 Mg Capsule, 100 MG PO BID, (Reported) Insulin Detemir (Levemir) 100 Unit/1 Ml Vial, 46 UNITS SC QHS, (Reported) Levothyroxine Sodium (Synthroid) 50 Mcg Tablet, 50 MCG PO DAILY, (Reported) Metformin HCl (Metformin HCl) 1,000 Mg Tablet, 1,000 MG PO BID, (Reported) Simvastatin (Simvastatin) 40 Mg Tablet, 40 MG PO DAILY, (Reported) Sitagliptin Phosphate (Januvia) 100 Mg Tablet, 100 MG PO DAILY, (Reported) Allergies Coded Allergies: No Known Allergies (Unverified , 09/21/18) Past Medical History Medical History 1. Diabetes mellitus type 2 2. Hyperlipidemia 3. Hypertension 4. Hypothyroidism 5. Osteopenia 6. Arthritis of the hands and knees 7. Vitamin D deficiency Surgical History 1. Ankle surgery 2. Evaluation 3. Resection of the left breast 4. Lap cholecystectomy 5. Left arm fracture Family History Father: at 95 years old, history of arthritis and prostate cancer Mother: at the age of 8181 years old from old age Social History * Smoker: former Smoker Alcohol: Denies Drugs: denies A-FIB/CHADSVASC A-FIB History Current/History of A-Fib/PAF?: No Review of Systems Constitutional: Denies: Chills, Fever Eyes: Denies: Vision change ENT: Denies: Sore Throat Skin: Denies: Rash Pulmonary: Denies: Dyspnea, Cough Cardiovascular: Denies: Chest Pain Gastrointestinal: Reports: Nausea, Abdominal Pain Genitourinary: Denies: Dysuria Hematologic: Denies: Bruising Neurological: Denies: Numbness Psych: Denies: Anxiety, Depression Physical Examination General Exam: Positive: Alert, Cooperative Eye Exam: Positive: EOMI; Negative: Sclera icteric ENT Exam: Positive: Atraumatic Neck Exam: Positive: Supple Chest Exam: Positive: Clear to auscultation Heart Exam: Positive: Rate Normal, Regular Rhythm Abdomen Exam: Positive: Normal bowel sounds, Soft Extremity Exam: Negative: Edema Neuro Exam: Positive: Normal Speech Psych Exam: Positive: Mental status NL, Mood NL Vital Signs Vital Signs Date Time Temp Pulse Resp B/P (MAP) Pulse Ox O2 Delivery O2 Flow Rate FiO2 01/24/21 03:05 97.5 77 18 125/86 (99) 99 Room Air Laboratory Data Labs 24H Laboratory Tests 2 01/23/21 21:13: Immature Granulocyte % (Auto) 0.4, Neutrophils (%) (Auto) 69.0H, Lymphocytes (%) (Auto) 22.1L, Monocytes (%) (Auto) 5.8, Eosinophils (%) (Auto) 2.0, Basophils (%) (Auto) 0.7, Neutrophils # (Auto) 7.7, Lymphocytes # (Auto) 2.5, Monocytes # (Auto) 0.7, Eosinophils # (Auto) 0.2, Basophils # (Auto) 0.1, Nucleated Red Blood Cells % (auto) 0.0, Urine Color YELLOW, Urine Appearance CLEAR, Urine pH 5.0, Urine Specific [place] 1.025, Urine Protein NEGATIVE, Urine Glucose (UA) 2+H, Urine Ketones TRACEH, Urine Blood NEGATIVE, Urine Nitrite NEGATIVE, Urine Bilirubin NEGATIVE, Urine Urobilinogen 0.2, Urine Leukocyte Esterase 2+H, Urine WBC (Auto) 26H, Urine RBC (Auto) 5H, Urine Hyaline Casts (Auto) 0, Urine Bacteria (Auto) NEGATIVE, Urine Squamous Epithelial Cells 0, Urine Calcium Oxalate Cryst (Auto) SMALL, Urine Mucus (Auto) SMALL, Urine Sperm (Auto) , Anion Gap 6L, Glomerular Filtration Rate > 60.0, Calcium Level 10.7H, Total Bilirubin 0.5, Direct Bilirubin < 0.1, Aspartate Amino Transf (AST/SGOT) 36, Alanine Aminotransferase (ALT/SGPT) 30, Alkaline Phosphatase 78, Total Protein 7.3, Albumin 3.5, Albumin/Globulin Ratio 0.9L, Lipase 213 01/24/21 01:11: Coronavirus (COVID-19)(PCR) NEGATIVE, Influenza Type A (RT-PCR) NEGATIVE, Influenza Type B (RT-PCR) NEGATIVE, Respiratory Syncytial Virus (PCR) NEGATIVE CBC/BMP Laboratory Tests 01/23/21 21:13 Microbiology Microbiology 01/23/21 Urine Culture, Received Pending Assessment/Plan Mrs. Alexandra is an 85-year-old female with diabetes mellitus, hypothyroidism, and hypertension who presents with abdominal pain. Abdominal pain may be due to duodenitis or peptic ulcer disease. We will put patient on Carafate and Protonix. We will start patient on a clear liquid diet. Otherwise patient has signs of chronic pancreatitis which may also have been causing her abdominal pain. Patient may need supportive care and analgesics Plan / VTE VTE Prophylaxis Ordered?: Yes Plan Plan 1. Abdominal pain May be secondary to duodenitis versus peptic ulcer disease versus chronic pancreatitis We will start patient on a clear liquid diet Start liquid Carafate and Protonix Acetaminophen as needed for pain. Continue gabapentin For the possible peptic ulcer disease, patient may need EGD to evaluate for H. pylori. Unclear if this needs to be done inpatient or if it could be done outpatient. Recommend touching base with GI or general surgery in the morning for EGD. Otherwise, in the meantime we will order H. pylori stool test. 2. Diabetes mellitus Sliding scale insulin Reducing basal insulin to 10 units at nighttime as patient is on a clear liquid diet 3. Hypertension Continue fosinopril 4. Hyperlipidemia Continue simvastatin 5. Hypothyroidism Continue levothyroxine We will obtain TSH level in the morning 6. DVT prophylaxis SCDs and teds Disposition: Pending tolerance of a diet. Patient will need an EGD, recommending touching base with general surgery or GI in the morning to see if EGD needs to be done inpatient BRENTON VEGA DO Jan 24, 2021 04:14
[2021-01-24] MEDS ORDERED: LEVOTHYROXINE 50MCG TABLET (0.05MG) PO SCH (06:00)
[2021-01-24 06:09] LABS: HEMATOCRIT 38.1 % (36.0-47.0); HEMOGLOBIN 12.2 g/dl (12.0-15.5); MEAN CORPUSCULAR HEMOGLOBIN 27.8 pg (27.0-33.0); MEAN CORPUSCULAR VOLUME 86.8 fl (80.0-96.0); PLATELET COUNT, AUTOMATED 191 10^3/uL (150-450); RED BLOOD COUNT 4.39 10^6/uL (4.00-5.40); WHITE BLOOD COUNT 8.7 10^3/uL (4.0-10.0)
[2021-01-24 06:47] LABS: ALBUMIN 3.2 GM/DL (3.2-5.2); ALT/SGPT 24 U/L (12-78); BILIRUBIN,TOTAL 0.4 MG/DL (0.2-1.0); BLOOD UREA NITROGEN 13 MG/DL (7-18); CALCIUM LEVEL 9.7 MG/DL (8.8-10.2); CARBON DIOXIDE LEVEL 26 MEQ/L (21-32); CHLORIDE LEVEL 110 MEQ/L (98-107); CREATININE FOR GFR 0.86 MG/DL (0.55-1.30); GLOMERULAR FILTRATION RATE > 60.0 (>32); GLUCOSE, FASTING 238 MG/DL (70-100); POTASSIUM SERUM 4.3 MEQ/L (3.5-5.1); SODIUM LEVEL 141 MEQ/L (136-145); TOTAL PROTEIN 6.1 GM/DL (6.4-8.2)
[2021-01-24] MEDS ORDERED: PANTOPRAZOLE 40MG VIAL (C9113 PER 1) IV SCH (09:00)
[2021-01-24] MEDS ORDERED: GABAPENTIN 100 MG CAP PO SCH (09:00)
[2021-01-24] MEDS ORDERED: SIMVASTATIN 40 MG TAB PO SCH (09:00)
[2021-01-24] MEDS: SUCRALFATE SUSP 1GM/10ML UD PO SCH ×2 (09:23→12:53)
[2021-01-24] MEDS: HumaLOG INSULIN (NovoLOG) PER UNIT SC SCH ×2 (09:24→12:00)
[2021-01-24] MEDS ORDERED: PREVNAR 13 VACCINE SYRINGE IM ONE (12:00)
[2021-01-24 14:00] VITALS: BP 133/66
[2021-01-24] MEDS ORDERED: PANT40TA29 PO (15:10)
[2021-01-24] MEDS ORDERED: SUCR1ORA PO (15:10)
[2021-01-24] MEDS ORDERED: LEVEMIR (INSULIN DETEMIR) 1 UNITS/0.01ML SC SCH ×2 (21:00)
[2021-01-24] MEDS ORDERED: HumaLOG INSULIN (NovoLOG) PER UNIT SC SCH (21:00)
[2021-01-24] MEDS ORDERED: FOSINOPRIL 10MG TABLET PO SCH (21:00)
--- NOTE | 2021-01-25 11:31 | ECGEPIP ---
[facility] - ED Test Date: 2021-01-24 Pat Name: PAULINO NATHAN Department: Room: [place] [address] Gender: Female Global Risk Management Director: AMPARO RN : [id number] Requested By: Rajesh Hong Order Number: [id number] Reading MD: Suzy Kinney Measurements Intervals [place] Rate: 66 P: 52 RI: 148 QRS: -28 QRSD: 84 T: 36 QT: 398 QTc: 417 Interpretive Statements Normal sinus rhythm with sinus arrhythmia Moderate voltage criteria for LVH, may be normal variant ( R in aVL , [place] product ) NSTTW abnormalities decreased rate 12/28/15 Electronically Signed on 01-25-2021 11:31:46 EDT by Suzy Kinney
--- NOTE | 2021-02-20 12:24 | DS.PDOC ---
Discharge Summary General Date of Admission Jan 23, 2021 at 19:06 Date of Discharge 01/24/21 Discharge Summary PROCEDURES PERFORMED DURING STAY: [None]. ADMITTING DIAGNOSES: 1. Abdominal pain DISCHARGE DIAGNOSES: 1. Gastritis/duodenitis 2. Chronic pancreatitis COMPLICATIONS/CHIEF COMPLAINT: Chronic Pancreatitis, Duodenitis. 85-year-old female with past medical history of diabetes mellitus, hypothyroidi sm, and hypertension presented to the emergency department with abdominal pain. A CT scan of the abdomen was done that showed possible duodenitis versus peptic ulcer disease; and pancreatic calcifications. The case was discussed with the surgical team for an endoscopy, but it was determined it was not required at this time; as endoscopy at this time would not foreign exchange services manager. She was discharged with instructions to take pantoprazole 40 mg daily as well as Carafate. She said she would prefer to follow-up with her primary care physician to establish care with a medicine tech for a possible endoscopy as an outpatient. At the time of discharge patient was tolerating a diet, she had no abdominal pain, vomiting or nausea. She was also educated about her calcifications on the pancreas, possibly suggesting chronic pancreatitis. She reported she would follow-up with her primary care physician for ongoing management. DISCHARGE MEDICATIONS: Please see below. ALLERGIES: Please see below. PHYSICAL EXAMINATION ON DISCHARGE: General: Lying in bed, no acute distress Head/Neck/Throat: Trachea midline, mucous membranes moist Eyes: Sclera anicteric, no erythema or discharge appreciated bilateral Thorax: Normal respiratory effort on room air, lungs clear to auscultation bilaterally, no wheezes/rales/rhonchi Cardiovascular: Normal rate, regular rhythm, normal S1, S2; no S3, S4, ru bs/gallops/murmurs Abdomen: Bowel sounds present, soft/nontender/nondistended Genitourinary: No CVA tenderness, no Whitman in place Musculoskeletal: Moving all extremities, no edema Skin: Warm, dry Neurologic: AAOx3, speech fluent and goal-directed, no focal deficits, grossly intact LABORATORY DATA: Please see below. IMAGING: Chest x-ray exam dated 01/24/2021 Impression: 1. Left mastectomy with left axillary nahid dissection. 2. Otherwise negative chest. No acute process is identified. CT scan of abdomen and pelvis exam dated 01/23/2021 Impression: 1. Slight wall thickening of the 1st and 2nd portions of the duodenum with surrounding induration which does contact the pancreatic head and may reflect duodenitis or PUD. Groove pancreatitis is not excluded. 2. Coarse calcifications of the pancreas, particularly the head and uncinate consistent with residua of previous pancreatitis. 3. Status post cholecystectomy. 4. Minimal hiatal hernia. 5. Colonic diverticulosis without diverticulitis. 6. Otherwise negative CT abdomen/pelvis. No renal or ureteral calculi are evident and there is no evidence of obstructive uropathy. PROGNOSIS: Good ACTIVITY: As tolerated DIET: Educated about GERD. TIME SPENT ON DISCHARGE: 25-minute minutes. Vital Signs/I&Os Vital Signs Date Time Temp Pulse Resp B/P (MAP) Pulse Ox O2 Delivery O2 Flow Rate FiO2 01/24/21 03:05 97.5 77 18 125/86 (99) 99 Room Air I&O- Last 24 Hours up to 6 AM 01/24/21 06:00 Intake Total 200 ml Balance 200 ml Laboratory Data Labs 24H Laboratory Tests 2 01/23/21 21:13: Immature Granulocyte % (Auto) 0.4, Neutrophils (%) (Auto) 69.0H, Lymphocytes (%) (Auto) 22.1L, Monocytes (%) (Auto) 5.8, Eosinophils (%) (Auto) 2.0, Basophils (%) (Auto) 0.7, Neutrophils # (Auto) 7.7, Lymphocytes # (Auto) 2.5, Monocytes # (Auto) 0.7, Eosinophils # (Auto) 0.2, Basophils # (Auto) 0.1, Nucleated Red Blood Cells % (auto) 0.0, Urine Color YELLOW, Urine Appearance CLEAR, Urine pH 5.0, Urine Specific [place] 1.025, Urine Protein NEGATIVE, Urine Glucose (UA) 2+H, Urine Ketones TRACEH, Urine Blood NEGATIVE, Urine Nitrite NEGATIVE, Urine Bilirubin NEGATIVE, Urine Urobilinogen 0.2, Urine Leukocyte Esterase 2+H, Urine WBC (Auto) 26H, Urine RBC (Auto) 5H, Urine Hyaline Casts (Auto) 0, Urine Bacteria (Auto) NEGATIVE, Urine Squamous Epithelial Cells 0, Urine Calcium Oxalate Cryst (Auto) SMALL, Urine Mucus (Auto) SMALL, Urine Sperm (Auto) , Anion Gap 6L, Glomerular Filtration Rate > 60.0, Calcium Level 10.7H, Total Bilirubin 0.5, Direct Bilirubin < 0.1, Aspartate Amino Transf (AST/SGOT) 36, Alanine Aminotransferase (ALT/SGPT) 30, Alkaline Phosphatase 78, Total Protein 7.3, Albumin 3.5, Albumin/Globulin Ratio 0.9L, Lipase 213 01/24/21 01:11: Coronavirus (COVID-19)(PCR) NEGATIVE, Influenza Type A (RT-PCR) NEGATIVE, Inf luenza Type B (RT-PCR) NEGATIVE, Respiratory Syncytial Virus (PCR) NEGATIVE 01/24/21 05:50: Nucleated Red Blood Cells % (auto) 0.0, Anion Gap 5L, Glomerular Filtration Rate > 60.0, Calcium Level 9.7, Total Bilirubin 0.4, Aspartate Amino Transf (AST/SGOT) 17, Alanine Aminotransferase (ALT/SGPT) 24, Alkaline Phosphatase 69, Total Protein 6.1L, Albumin 3.2, Albumin/Globulin Ratio 1.1L, Thyroid Stimulating Hormone (TSH) 2.410 01/24/21 06:22: Bedside Glucose (Misc Panel) 214H 01/24/21 12:08: Bedside Glucose (Misc Panel) 102 CBC/BMP Laboratory Tests 01/23/21 21:13 01/24/21 05:50 FSBS Laboratory Tests Test 01/24/21 06:22 01/24/21 12:08 Range/Units Bedside Glucose (Misc Panel) 214 102 83-110 MG/DL Microbiology Microbiology 01/23/21 Urine Culture, Received Pending Discharge Medications Scheduled Anastrozole (Anastrozole) 1 Mg Tablet, 1 MG PO DAILY, (Reported) Ergocalciferol (Vitamin D2) (Vitamin D2) 50,000 Units Cap, 50,000 UNITS PO QWEEK, (Reported) MONDAYS Fosinopril Sodium (Fosinopril Sodium) 10 Mg Tablet, 10 MG PO QHS, (Reported) Gabapentin (Gabapentin) 100 Mg Capsule, 100 MG PO BID, (Reported) Insulin Detemir (Levemir) 100 Unit/1 Ml Vial, 46 UNITS SC QHS, (Reported) Levothyroxine Sodium (Synthroid) 50 Mcg Tablet, 50 MCG PO DAILY, (Reported) Metformin HCl (Metformin HCl) 1,000 Mg Tablet, 1,000 MG PO BID, (Reported) Pantoprazole Sodium (Pantoprazole Sodium) 40 Mg Tablet.dr, 1 TAB PO DAILY Simvastatin (Simvastatin) 40 Mg Tablet, 40 MG PO DAILY, (Reported) Sitagliptin Phosphate (Januvia) 100 Mg Tablet, 100 MG PO DAILY, (Reported) Sucralfate (Sucralfate) 1 Gm/10 Ml Oral.susp, 1 GM PO ACHS Allergies Coded Allergies: No Known Allergies (Unverified , 09/21/18) AVA METZ M.D. Jan 24, 2021 15:19
== END 2021-01-24 16:33 | disposition home or self-care (01) ==
LOC: M ED 19:05 → M ED INP 19:06 → ENRESERV 01-24 01:51 → M MSPAV 01-24 03:05
PROVIDERS: ADMIT Internal Medicine; ATTEND Internal Medicine
DX: K29.70 Gastritis, unspecified, without bleeding (principal); K57.30 Diverticulosis of large intestine without perforation or abscess without bleeding; K85.90 Acute pancreatitis without necrosis or infection, unspecified; Z90.49 Acquired absence of other specified parts of digestive tract; E11.9 Type 2 diabetes mellitus without complications; I10 Essential (primary) hypertension; E78.5 Hyperlipidemia, unspecified; E07.9 Disorder of thyroid, unspecified; Z85.3 Personal history of malignant neoplasm of breast; R10.11 Right upper quadrant pain; Z87.19 Personal history of other diseases of the digestive system; M19.90 Unspecified osteoarthritis, unspecified site; M85.80 Other specified disorders of bone density and structure, unspecified site; E55.9 Vitamin D deficiency, unspecified; Z87.891 Personal history of nicotine dependence; Z79.899 Other long term (current) drug therapy; Z79.4 Long term (current) use of insulin; Z90.12 Acquired absence of left breast and nipple
CPT/HCPCS: 36415; 71045; 74176; 80048; 80053; 80076; 81001; 83690; 84443; 85025; 85027; 87086; 87631; 90670; 93005; 96374; 99285; C9113; G0009; G0378

== ENCOUNTER → 2021-02-19 | Outpatient (REF) | payer MEDICARE ==
[~2021-02-19] MED LIST changes: +ANAS1TAB2 PO; +ERGO500029 PO; +FOSI10TA4 PO; +INSUDET SC; +JANU100T PO; +METF10004 PO; +PANT40TA29 PO; +SUCR1ORA PO; +SYNT50TA PO
[2021-02-19 13:14] LABS: ALBUMIN 3.6 GM/DL (3.2-5.2); ALT/SGPT 28 U/L (12-78); AMYLASE 42 U/L (25-115); BILIRUBIN,DIRECT 0.2 MG/DL (0.0-0.2); BILIRUBIN,TOTAL 0.4 MG/DL (0.2-1.0); BLOOD UREA NITROGEN 17 MG/DL (7-18); CREATININE FOR GFR 0.94 MG/DL (0.55-1.30); GLOMERULAR FILTRATION RATE > 60.0 (>32); LIPASE 148 U/L (73-393); TOTAL PROTEIN 6.8 GM/DL (6.4-8.2)
[2021-02-19 13:48] LABS: CA19-9 TUMOR MARKER,CARBOHYDRA 10.4 U/ML (<35.0)
== END ==
LOC: M LABDRWAD 12:26
PROVIDERS: ATTEND Internal Medicine Gastroenterology
DX: K29.80 Duodenitis without bleeding (principal)

== ENCOUNTER → 2021-02-26 | Outpatient (CLI) | payer MEDICARE ==
[~2021-02-26] MED LIST changes: +PROHANCE 279.3MG/ML 15ML VIAL As Ordered ONE
--- NOTE | 2021-02-27 08:42 | REP ---
INDICATION: OTHER SPECIFIED DISEASES OF PANCREAS ? METS. COMPARISON: No prior abdominal MRI. Prior noncontrast CT 01/23/2021 TECHNIQUE: Pre and post contrast 3T MRI of the pancreas was performed utilizing various sequences. Gadolinium utilized: 15 cc of ProHance FINDINGS: There is no evidence of a pancreatic mass. There is no abnormal pancreatic or peripancreatic enhancement. There is no peripancreatic adenopathy. There is no evidence of pancreatic ductal dilatation. There is no para-aortic adenopathy. The imaged portion of the kidneys shows multiple tiny cortical cysts. Arising from the superior pole of the left kidney there is 2 cm sized cyst. In the left adrenal gland there is nodular thickening. In and out of phase imaging of this shows decreased out of phase signal. The imaged portion of the liver is within normal limits. The cortical and marrow signal seen throughout the exam is within. IMPRESSION: 1. There is no pancreatic or peripancreatic abnormality. 2. Benign left adrenal gland adenoma. 3. Multiple Bosniak class 1 renal cysts as described above. <Electronically signed by Luis Alberto Mendez > 02/27/21 [id number]
== END ==
LOC: M RAD 16:37
PROVIDERS: ATTEND Internal Medicine Gastroenterology
DX: R93.3 Abnormal findings on diagnostic imaging of other parts of digestive tract (principal); K86.89 Other specified diseases of pancreas; N28.1 Cyst of kidney, acquired; D35.02 Benign neoplasm of left adrenal gland
CPT/HCPCS: 74183; A9576

== ENCOUNTER 2021-04-08 08:22 | Emergency (ER) | payer MEDICARE ==
[~2021-04-08] VITALS: Ht 167.6 cm; Wt 79.6 kg
[~2021-04-08 08:22] MED LIST changes: -PROHANCE 279.3MG/ML 15ML VIAL As Ordered ONE
--- OUTSIDE RECORDS SUMMARY | 2021-04-08 08:36 | CCD ---
Author Author [facility] Organization [facility] Address Unknown Phone Unavailable Care Team Providers Care Tissue Recovery Technician Name Role Phone Sherin Keita Unavailable PROBLEMS Type Condition ICD9-CM Code [id number] Code Onset Dates Condition S tatus W/U Status Risk SNOMED Code Notes Problem Essential (primary) hypertension I10 Active conf irmed 72235373 Problem Hypothyroidism, unspecified E03.9 Active confirmed 41822372 Problem Vitamin D deficiency E55.9 Active confirmed 54249894 Problem Mixed hyperlipidemia E78.2 Active confirmed 017001096 Problem Gastroesophageal reflux disease without esophagitis K21.9 Active confirmed 875159520 Problem Duodenitis K29.80 Active confirmed 51843820 Problem Type 2 diabetes mellitus with diabetic polyneuropathy E11.42 Active confirmed 63082351 Problem manager long term care current use of insulin Z79.4 Active conf irmed 032293085 Problem History of left mastectomy Z90.12 Active confirmed 922533799 Problem Personal history of breast cancer Z85.3 Active confirmed 465799117 ALLERGIES No Known Allergies ENCOUNTERS from 1937 to 2021-02-22 Encounter Location Date Provider Diagnosis [id number] [place] [address] Jan, Sherin Keita IMMUNIZATIONS Vaccine Route Administration Date Status COVID-19 dose #1 given elsewhere Unspecified Unknown Jul Administered Influenza 18 yrs & older Flublok IM Intramuscular Feb 28, 2020 Administered Influenza 18 yrs & older Flublok IM Intramuscular Mar 24, 2019 Administered Influenza 18 yrs & older Flublok IM Intramuscular Apr 07, 2018 Administered Influenza (High Dose 65 & up) IM Intramuscular Mar 18, 2017 A dministered Influenza 6mo & up Fluzone Unknown Apr 04, 2016 Refus ed SOCIAL HISTORY Tobacco Use: Social History Observation Description Date Details (start date - stop date) Former Smoker Sex Assigned At : Social History Observation Description Sex Assigned At Unknown Audit Question Answer Notes Total Score: 0 Interpretation: Alcohol Education Language: Question Answer Notes Languages spoken: Albanian Sikhism: Question Answer Notes Sikhism 99 Other Drug and Alcohol Question Answer Notes Total Score: 0 Interpretation: No problems reported Alcohol Screening: Question Answer Notes Did you have a drink containing alcohol in the past year? No Points 0 Interpretation Negative BMI Care Goal Follow-Up Question Answer Notes Above Normal BMI Follow-Up Dietary management educatio n, guidance, and counseling Tobacco Use: Question Answer Notes Are you a: former smoker How long has it been since you last smoked? > 10 years REASON FOR REFERRAL No Information VITAL SIGNS No information MEDICATIONS Medication SIG (Take, Route, Frequency, Duration) Notes Start Da te End Date Status Unifine Pentips Plus 31G X 6 MM USE AT BEDTIME DIRECTED for 90 Active One Touch Ultra 2 Lancet _ as directed DX:E11.9 three times ashutosh y for 30 days September, Active Gabapentin 100 MG TAKE ONE CAPSULE BY MOUTH TWICE A DAY for 90 Active Anastrozole 1 MG 1 tablet Orally Once a day for 90 Active OneTouch Delica Plus [id number] - TEST THREE TIMES A DAY DIRECTED for 30 Active Januvia 100 MG 1 tablet Orally Once a day Active Pantoprazole Sodium 40 MG 1 tablet Orally Once a day for 30 day(s) new on discharge 01/24/21 Jan, Active Nystatin 417555 UNIT/ML 4 ml Mouth/Throat swish and swallow Four times a day for 14 Active metFORMIN HCl 1000 MG 1 tablet with meals orally twice daily for 90 Active Fosinopril Sodium 10 MG TAKE ONE TABLET BY MOUTH EVERY DAY for 90 Active Simvastatin 40 MG 1 tablet in the evening Orally Once a day for 90 Active Levemir FlexTouch 100 UNIT/ML 46 units Subcutaneous before bedtime fo r 32 Active traMADol HCl 50 MG 1 tablet as needed Orally twice daily as needed for 30 Days Jan, Active Acetaminophen 500 MG 1 tab Orally twice daily PRN Dec, Active OneTouch Verio - TEST TWO TIMES A DAY for 50 Active Levothyroxine Sodium 50 MCG 1 tablet in the morning on an empty stomach orally Daily for 90 Active Drisdol 11801 UNIT 1 capsule Orally once weekly for 90 Active Sucralfate 1 GM/10ML 10 ml on an empty stomach Orally Twice a day for 30 day(s) new on discharge 01/24/21 Jan, Active PROCEDURES No Information RESULTS No Results REASON FOR VISIT refill MEDICAL (GENERAL) HISTORY Type Description Date Medical History L breast mastectomy, Dr Aminata chaparro, 2010, for breast cancer - follows with Dr. Rosario Medical History DM2 Medical History Hyperlipidemia Medical History Hypertension Medical History Hypothyroidism Medical History osteopenia 11/05 DEXA, 2 years Medical History 11/06 EKG NSR Medical History L wrist fx Medical History arthritis, hand, knees Medical History Vit D def Surgical History ankle surgery Surgical History tubal ligation Surgical History mastectomy left breast 10/2010 Surgical History lap ru 05/04 Surgical History left arm fracture @ [facility] 12/28/15 Hospitalization History L breast mastectomy 11/02 Hospitalization History lap ru 05/04 Hospitalization History 5 vaginal deliveries Hospitalization History pancreatitis- [facility] 12/2020 Goals Section No Information Health Concerns No Information MEDICAL EQUIPMENT No Information MENTAL STATUS No Information FUNCTIONAL STATUS No Information ASSESSMENTS No Information PLAN OF TREATMENT Medication Medication Name Sig Start Date Stop Date Fosinopril Sodium 10 MG TAKE ONE TABLET BY MOUTH EVERY DAY for 9 0 Pantoprazole Sodium 40 MG 1 tablet Orally Once a day for 30 day( s) Jan, traMADol HCl 50 MG 1 tablet as needed Orally twice daily as needed for 30 Days Jan, OneTouch Verio - TEST TWO TIMES A DAY for 50 Gabapentin 100 MG TAKE ONE CAPSULE BY MOUTH TWICE A DAY for 90 Unifine Pentips Plus 31G X 6 MM USE AT BEDTIME DIRECTED for 9 0 Next Appt Details Provider Name:Sherin Keita, 2021-04-25 09:30:00 AM, [id number], , [place], [address], Insurance Providers Payer Name Payer Address Payer Phone Insured Name Patient Relati onship to Insured Coverage Start Date Coverage End Date AETNA MEDICARE [employer] [address] [facility] [id number] PAULINO NATHAN self
--- OUTSIDE RECORDS SUMMARY | 2021-04-08 08:36 | CCD | Continuity of Care Document ---
Author Author Radha LOBO MD Organization Unknown Address [address] [place] [address] Phone [phone] Care Team Providers Care Drop Clipper Name Role Phone Sherin Quezada R.P.A. AUTM [phone] AUTM Unavailable Problems Active Problems Provider Date Aphthous ulcer of mouth Yousif Luna MD Onset: 8 Neoplasm of uncertain behavior of lip, oral cavity and phary nx Yousif Luna MD Onset: 02/02/2018 Social History Type Date Description Comments Sex Unknown ETOH Use Denies alcohol use Tobacco Use Start: Unknown Non Smoker Allergies, Adverse Reactions, Alerts Description No Known Drug Allergies Medications Active Medications SIG Qnty Indications Ordering Provide r Date Metformin HCL 1000mg Tablets 1 by mouth twice a day Unknown Januvia 100mg Tablets 1 by mouth every day Unknown Anastrozole 1mg Tablets daily Unknown Levothyroxine Sodium 50mcg Tablets every day Unknown Fosinopril Sodium 10mg Tablets daily Unknown Simvastatin 40mg Tablets 1 by mouth every night at bedtime Unknown Gabapentin 100mg Capsules 2 tab by mouth three times a day. Unknown Vitamin D 1000Unit Tablets 1 by mouth qw Unknown Levemir 100Unit/ML Solution 1 injection twice a day Unknown Nystatin 466143Cpel/ML Suspension 5ml swish in the mouth several minuts before swallowing four times a day for 7 days Unknown Sucralfate 1GM/10ML Suspension 2 Tbl before meals and hs Unknown Pantoprazole Sodium 40mg Tablets D R take one tablet by mouth daily. Unknown Immunizations Description No Information Available Vital Signs Date Vital Result Comment 02/13/2021 11:24am BP Systolic 140 mmHg BP Diastolic 100 mmHg Height 66.5 inches 5'6.50" Weight 173.00 lb BMI (Body Mass Index) 27.5 kg/m2 [place] Body Weight 130 lb Weight 78.473 kg BSA (Body Surface Area) 1.89 m2 06/16/2019 9:52am Height 66.5 inches 5'6.50" Weight 174.00 lb BMI (Body Mass Index) 27.7 kg/m2 [place] Body Weight 130 lb Weight 78.926 kg BSA (Body Surface Area) 1.90 m2 Procedures Date Code Description Status 02/13/2021 27188 Office/Outpatient New Moderate M DM 45-59 Minutes Completed Medical Devices Description No Information Available Encounters Type Date Location Provider Dx Diagnosis Office Visit 02/13/2021 11:00a [facility] ctice Brandt Lobo MD K29.80 Duodenitis without bleeding R93.3 Abnormal findings on dx imag ing of prt digestive tract Assessments Date Code Description Provider 02/13/2021 K29.80 Duodenitis without bleeding Andreas Lobo MD 02/13/2021 R93.3 Abnormal findings on diagnostic imaging of other parts of digestive tract Brandt Lobo MD Plan of Treatment 02/13/2021 - Brandt Lobo MD* K29.80 Duodenitis without bleeding * R93.3 Abnormal findings on diagnostic imaging of other parts of digestive tract * * New Labs:* BUN & Creatinine ([facility]), Ordered: 02/13/21 * Amylase & Lipase, Ordered: 02/13/21 * Igg Subclass 4, Ordered: 02/13/21 * Ca19-9 Tumor Marker,Carbohydra, Ordered: 02/13/21 * Liver Profile, Ordered: 02/13/21 * New Orders:* EGD, Ordered: 02/13/21 * Comments:* seemingly had duodenitis/perhaps recurrent duodenal ulcer with pancreatic edema likely related to proximity. her lipase and amylase were normal. Has some pancreatic calcifications--suggestive of chronic pancreatitis. * Recommendations:* EGD Cont pantoprazole indefinitely, can stop Carafate after this refill completed MRI pancreas body with contrast to assess (she has no history of pancreatitis or trauma) Functional Status Description No Information Available Mental Status Description No Information Available Referrals Refer to Reason for Referral Status Appt Date Matthew Odom M.D. DUODENITIS, PANCREATITIS Scheduled 02/13/2021 [facility] [address] [place], [address] [place] [address] [phone]
--- OUTSIDE RECORDS SUMMARY | 2021-04-08 08:36 | CCD ---
Author Author [facility] Organization [facility] Address Unknown Phone Unavailable Care Team Providers Care Vp Of Technology Name Role Phone Sherin Keita Unavailable PROBLEMS Type Condition ICD9-CM Code QAR33-MS Code Onset Dates Condition S tatus W/U Status Risk SNOMED Code Notes Problem Essential (primary) hypertension I10 Active conf irmed 41163832 Problem Hypothyroidism, unspecified E03.9 Active confirmed 78671378 Problem Vitamin D deficiency E55.9 Active confirmed 99304636 Problem Mixed hyperlipidemia E78.2 Active confirmed 814287512 Problem Gastroesophageal reflux disease without esophagitis K21.9 Active confirmed 928805397 Problem Duodenitis K29.80 Active confirmed 72857521 Problem Type 2 diabetes mellitus with diabetic polyneuropathy E11.42 Active confirmed 14058849 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 Z79.4 Active conf irmed 727154944 Problem History of left mastectomy Z90.12 Active confirmed 435401113 Problem Personal history of breast cancer Z85.3 Active confirmed 395612941 ALLERGIES No Known Allergies ENCOUNTERS from 1937 to 2021-02-05 Encounter Location Date Provider Diagnosis [id number] [place] [address] Jan, 2021 Sherin Keita Arthralgia, unspecified joint M25.50 IMMUNIZATIONS Vaccine Route Administration Date Status COVID-19 [...] Education Language: Question Answer Notes Languages spoken: Cameroonian Hoahaoism: Question Answer Notes Hoahaoism 99 Other Drug and Alcohol Question Answer [...] USE AT BEDTIME DIRECTED for 90 Active Pantoprazole Sodium 40 MG 1 tablet Orally Once a day for 30 day(s) new on discharge 01/24/21 Jan, Active Gabapentin 100 MG TAKE ONE CAPSULE BY MOUTH TWICE A DAY for 90 Active Simvastatin 40 MG 1 tablet in the evening Orally Once a day for 90 Active OneTouch Delica Plus [id number] - TEST THREE TIMES A DAY DIRECTED for 30 Active Levemir FlexTouch 100 UNIT/ML 46 units Subcutaneous before bedtime fo r 32 Active Nystatin 978734 UNIT/ML 4 ml Mouth/Throat swish and swallow Four times a day for 14 Active Januvia 100 MG 1 tablet Orally Once a day Active metFORMIN HCl 1000 MG 1 tablet with meals orally twice daily for 90 Active OneTouch Verio - TEST TWO TIMES A DAY for 50 Active Fosinopril Sodium 10 MG TAKE ONE TABLET BY MOUTH EVERY DAY for 90 Active Drisdol 53070 UNIT 1 capsule Orally once weekly for 90 Active Sucralfate 1 GM/10ML 10 ml on an empty stomach Orally Twice a day for 30 day(s) new on discharge 01/24/21 Jan, Active Anastrozole 1 MG 1 tablet Orally Once a day for 90 Active traMADol HCl 50 MG 1 tablet as needed Orally twice daily as needed for 30 Days Jan, Active Levothyroxine Sodium 50 MCG 1 tablet in the morning on an empty stomach orally Daily for 90 Active Acetaminophen 500 MG 1 tab Orally twice daily PRN Dec, Active One Touch Ultra 2 Lancet _ as directed DX:E11.9 three times ashutosh y for 30 days September, Active PROCEDURES No Information RESULTS No Results REASON FOR VISIT refill tramadol MEDICAL (GENERAL) HISTORY Type Description Date Medical [...] 05/04 Surgical History left arm fracture @ [facility] 12/28/15 Hospitalization History L breast mastectomy 11/02 Hospitalization History lap ru 05/04 Hospitalization History 5 vaginal deliveries Hospitalization History pancreatitis- [facility] 12/2020 Goals Section No Information Health Concerns No Information MEDICAL EQUIPMENT No Information MENTAL STATUS No Information FUNCTIONAL STATUS No Information ASSESSMENTS Encounter Date Diagnosis Assessment Notes Treatment Notes Treatm ent Clinical Notes Jan, Arthralgia, unspecified joint (ICD-10 - M25.50) PLAN OF TREATMENT Medication Medication Name Sig Start Date Stop Date OneTouch Verio - TEST TWO TIMES A DAY for 50 Fosinopril Sodium 10 MG TAKE ONE TABLET BY MOUTH EVERY DAY for 9 0 Unifine Pentips Plus 31G X 6 MM USE AT BEDTIME DIRECTED for 9 0 traMADol HCl 50 MG 1 tablet as needed Orally twice daily as needed for 30 Days Jan, Gabapentin 100 MG TAKE ONE CAPSULE BY MOUTH TWICE A DAY for 90 Next Appt Details Provider Name:Sherin Keita, 2021-04-25 09:30:00 AM, [address], , [place], [address], Insurance Providers Payer Name Payer Address Payer Phone Insured Name Patient Relati onship to Insured Coverage Start Date Coverage End Date AETNA MEDICARE [employer] [address] [facility] [phone] PAULINO NATHAN self
--- OUTSIDE RECORDS SUMMARY | 2021-04-08 08:36 | CCD ---
Author Author [facility] Organization [facility] Address Unknown Phone Unavailable Care Team Providers Care Shop Teacher Name Role Phone Sherin Keita Unavailable PROBLEMS Type Condition ICD9-CM Code [id number] Code Onset Dates Condition S tatus W/U Status Risk SNOMED Code Notes Problem Essential (primary) hypertension I10 Active conf irmed 20503589 Problem Hypothyroidism, unspecified E03.9 Active confirmed 66520975 Problem Vitamin D deficiency E55.9 Active confirmed 81874343 Problem Mixed hyperlipidemia E78.2 Active confirmed 165705435 Problem Gastroesophageal reflux disease without esophagitis K21.9 Active confirmed 808167025 Problem Duodenitis K29.80 Active confirmed 40987810 Problem Type 2 diabetes mellitus with diabetic polyneuropathy E11.42 Active confirmed 77544273 Problem terminal clerk current use of insulin Z79.4 Active conf irmed 552031926 Problem History of left mastectomy Z90.12 Active confirmed 517970330 Problem Personal history of breast cancer Z85.3 Active confirmed 743909552 ALLERGIES No Known Allergies ENCOUNTERS from 1935 to 2021-02-06 Encounter Location Date Provider Diagnosis [place] [id number] [place] [address] Jan, 2021 Sherin Keita Duodenitis K29.80 ; Arthralgia, unspecif ied joint M25.50 and Acute pancreatitis, unspecified complication status, unspecified pancreatitis type K85.90 IMMUNIZATIONS Vaccine Route Administration Date Status COVID-19 [...] Education Language: Question Answer Notes Languages spoken: Yakut Voodoo: Question Answer Notes Voodoo 99 Other Drug and Alcohol Question Answer [...] smoked? > 10 years REASON FOR REFERRAL from 1935 to 2021-02-06 Reason duodenitis, acute pancreatit is Diagnosis 1 Duodenitis (K29.80) Diagnosis 2 Acute pancreatitis without i nfection or necrosis, unspecified pancreatitis type (K85.90) Referral Organization [facility] Leif Referring Provider First Name Sherin Referring Provider Last Name Neela Referring Provider Specialty Family Medicine Referred Provider Thomas BOBBY Referred Provider Specialty Gastroenterology Referral Priority Routine General Notes Ashley Hay 02/04/2021 12:02:2 6 PM > faxed VITAL SIGNS Weight 174 lbs Jan, Height 66 in Jan, BMI 28.08 kg/m2 Jan, Heart Rate 101 /min Jan, Respiratory Rate 18 /min Jan, Temperature 97.9 degrees Fahrenheit Jan, Oximetry 98 Jan, Blood pressure systolic 162 mm Hg Jan, Blood pressure diastolic 88 mm Hg Jan, MEDICATIONS Medication SIG (Take, Route, Frequency, Duration) [...] day for 90 Active OneTouch Delica Plus Moqwfo22F - TEST THREE TIMES A DAY DIRECTED for 30 Active Levemir FlexTouch 100 UNIT/ML 46 units Subcutaneous before bedtime fo r 32 Active Nystatin 118376 UNIT/ML 4 ml Mouth/Throat swish and swallow [...] MOUTH EVERY DAY for 90 Active Drisdol 37618 UNIT 1 capsule Orally once weekly for [...] Information RESULTS No Results REASON FOR VISIT [facility] Discharge hospital follow up, Reference #:[id number] last refill 09/18/20 MEDICAL (GENERAL) HISTORY Type Description Date Medical [...] 05/04 Surgical History left arm fracture @ [facility] 12/28/15 Hospitalization History L breast mastectomy 11/02 Hospitalization History lap ru 05/04 Hospitalization History 5 vaginal deliveries Hospitalization History pancreatitis- [facility] 12/2020 Goals Section No Information Health Concerns No Information MEDICAL EQUIPMENT No Information MENTAL STATUS No Information FUNCTIONAL STATUS No Information ASSESSMENTS Encounter Date Diagnosis Assessment Notes Treatment Notes Treatm ent Clinical Notes Jan, Duodenitis (ICD-10 - K29.80) Pt to cont with carafate, refer to GI for further f/u. Jan, Arthralgia, unspecified joint (ICD-10 - M25.50) Counseled on risks and benefits assoc with Tramadol, cont with Tyl, use tramadol prn only. Jan, Acute pancreatitis, unspecif ied complication status, unspecified pancreatitis type (ICD-10 - K85.90) I suspect her symptoms really were related to the duodenitis more so than the pancreatits given the normal lipase. PLAN OF TREATMENT Medication Medication Name Sig [...] BY MOUTH TWICE A DAY for 90 Treatment Notes Assessment Notes Clinical Notes Duodenitis Pt to cont with carafate, refer to GI fo r further f/u. Arthralgia, unspecified joint Counseled on risks and b enefits assoc with Tramadol, cont with Tyl, use tramadol prn only. Acute pancreatitis, unspecified complica tion status, unspecified pancreatitis type I suspect her symptoms really were relat ed to the duodenitis more so than the pancreatits given the normal lipase. Referrals Referral Date Details duodenitis, acute pancreatit is, [facility] Next Appt Details RS appt next for 3 month Reason: Provider Name:Sherin Keita, 2021-04-25 09:30:00 AM, [address], , [place], [address], Insurance Providers Payer Name Payer Address Payer Phone Insured Name Patient Relati onship to Insured Coverage Start Date Coverage End Date AETNA MEDICARE AETNA [employer] INSURANCE [employer] [address] [facility] [phone] PAULINO NATHAN self
--- OUTSIDE RECORDS SUMMARY | 2021-04-08 08:36 | CCD ---
Continuity of Care Document (CCD) Created on: 02/28/2021 Radha Alexandra External Reference #: [id number] : 1935 Sex: Female Author Author Radha CASTRO MD Organization Unknown Address [address] [place] [address] Phone [phone] Care Team Providers Care Land Leasing Examiner Name Role Phone Sherin Quezada R.P.A. 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 Social History Type Date Description Comments Sex Unknown ETOH Use Denies alcohol use Tobacco Use Start: Unknown Non Smoker Allergies and adverse reactions Description No Known Drug Allergies Medications Active [...] 1 injection twice a day Unknown Nystatin 728270Cavl/ML Suspension 5ml swish in the mouth several [...] lb BMI (Body Mass Index) 27.5 kg/m2 [place] Body Weight 130 lb Weight 78.473 kg BSA (Body Surface Area) 1.89 m2 06/16/2019 9:52am Height 66.5 inches 5'6.50" Weight 174.00 lb BMI (Body Mass Index) 27.7 kg/m2 [place] Body Weight 130 lb Weight 78.926 kg BSA (Body Surface Area) 1.90 m2 Results Test Acquired Date Facility Test Result H/L Range Note BUN & Creatinine ([facility]) 02/19/2021 [facility] Main Lab [address] [place] [address] [phone] Blood Urea Nitrogen 17 mg/dL Normal 7-18 Creatinine With GFR 02/19/2021 [facility] [address] [place] [address] [phone] Creatinine For GFR 0.94 mg/dL Normal 0.55-1.30 Glomerular Filtration Rate > 60.0 Normal >32 1 Amylase & Lipase 02/19/2021 [facility] Main Lab [address] [place] [address] [phone] Amylase 42 U/L Normal 25-115 Lipase 148 U/L Normal 73-393 Laboratory test finding 02/19/2021 [facility] Main Lab [address] [place] [address] [phone] IgG Subclass 4(Only) 13 mg/dL Normal 2-96 2 Ca19-9 Tumor Marker,Carbohydra 10.4 U/ML Normal <35.0 3 Liver Profile 02/19/2021 [facility] Main Lab [address] [place] [address] [phone] Ast/Sgot 21 U/L Normal 7-37 Alt/SGPT 28 U/L Normal 12-78 Alkaline Phosphatase 74 U/L Normal 45-117 Bilirubin,Total 0.4 mg/dL Normal 0.2-1.0 Bilirubin,Direct 0.2 mg/dL Normal 0.0-0.2 Total Protein 6.8 GM/DL Normal 6.4-8.2 Albumin 3.6 GM/DL Normal 3.2-5.2 Albumin/Globulin Ratio 1.1 Low 1.2-2.2 4 1 Units are mL/min/1.73 m2 Chronic Kidney Disease Staging per NKF: Stage I & II GFR >=60 Normal to Mildly Decreased Stage III GFR 30-59 Moderately Decreased Stage IV GFR 15-29 Severely Decreased Stage V GFR <15 Very Little GFR Left ESRD GFR <15 on FLOOR WINDER 2 Performed at: [facility] [id number] 61 Gravity Prospector: Lillian Aguilar MD, Phone: [phone] THE CA 19-9 ASSAY IS PERFORM ED ON THE [employer] BY CHEMILUMINESCENCE AND SHOULD NOT BE COMPARED INTERCHANGEABLY WITH OTHER METHODS. IT SHOULD NOT BE USED ALONE A SCREENING TEST OR DIAGNOSIS FOR THE PRESENCE OR ABSENCE OF MALIGNANT DISEASE. PREDICTIONS OF DISEASE RECURRENCE SHOULD NOT BE BASED SOLELY ON VALUES OBTAINED FROM SERIAL PATIENT SERUM VALUES. 4 02/21/21 (Thr Feb 21) 03:37 PM GILMER CASTRO Unremarkable/normal Procedures Date Code Description Status 02/13/2021 40182 Office/Outpatient New Moderate M DM 45-59 Minutes Completed Medical Devices Description No Information Available Encounters Type Date Location Provider Dx Diagnosis Office Visit 02/13/2021 11:00a [facility] MD K29.80 Duodenitis without bleeding R93.3 Abnormal findings on dx imag ing of prt digestive tract Assessments Date Code Description Provider 02/13/2021 K29.80 Duodenitis without bleeding Andreas Castro MD 02/13/2021 R93.3 Abnormal findings on diagnostic imaging of other parts of digestive tract Gilmer Castro MD Plan of Treatment 02/13/2021 - Gilmer Castro MD* K29.80 Duodenitis without bleeding * R93.3 Abnormal findings on diagnostic imaging of other parts of digestive tract * * New Orders:* EGD, Ordered: 02/13/21 * [...] Matthew Odom M.D. DUODENITIS, PANCREATITIS Scheduled 02/13/2021 [facility] [address] [facility], [address] [place] [address] [phone]
--- OUTSIDE RECORDS SUMMARY | 2021-04-08 08:36 | CCD ---
Author Author [facility] Organization [facility] Address Unknown Phone Unavailable Care Team Providers Care Retail Analyst Name Role Phone Sherin Keita Unavailable PROBLEMS Type Condition ICD9-CM Code IHR47-LU Code Onset Dates Condition S tatus W/U Status Risk SNOMED Code Notes Problem Gastroesophageal reflux disease without esophagitis K21.9 Active confirmed 239245942 Problem Essential (primary) hypertension I10 Active conf irmed 81410077 Problem Hypothyroidism, unspecified E03.9 Active confirmed 19246660 Problem Personal history of breast cancer Z85.3 Active confirmed 872947606 Problem Mixed hyperlipidemia E78.2 Active confirmed 846800347 Problem Vitamin D deficiency E55.9 Active confirmed 07860320 Problem Type 2 diabetes mellitus with diabetic polyneuropathy E11.42 Active confirmed 02984591 Problem custodial current use of insulin Z79.4 Active conf irmed 280729466 Problem History of left mastectomy Z90.12 Active confirmed 006079157 ALLERGIES No Known Allergies ENCOUNTERS from 1935 to 2021-01-31 Encounter Location Date Provider Diagnosis [facility] [address] [place] [address] 07 Jan, 2021 Sherin Keita IMMUNIZATIONS Vaccine Route Administration Date [...] Education Language: Question Answer Notes Languages spoken: Indian Druze: Question Answer Notes Druze 99 Other Drug and Alcohol Question Answer [...] Notes Start Da te End Date Status Anastrozole 1 MG 1 tablet Orally Once a day for 90 Active Levemir FlexTouch 100 UNIT/ML 46 units Subcutaneous before bedtime fo r 32 Active Januvia 100 MG 1 tablet Orally Once a day Active Simvastatin 40 MG 1 tablet in the evening Orally Once a day for 90 Active OneTouch Delica Plus Afyvtb74F - TEST THREE TIMES A DAY DIRECTED for 30 Active Sucralfate 1 GM/10ML 10 ml on an empty stomach Orally Twice a day for 30 day(s) new on discharge 01/24/21 Jan, Active One Touch Ultra 2 Lancet _ as directed DX:E11.9 three times ashutosh y for 30 days September, Active Pen [place] 31G X 6 MM 1 needle subcutaneously before bedtime for 30 days Active Nystatin 969846 UNIT/ML 4 ml Mouth/Throat swish and swallow Four times a day for 14 Active Gabapentin 100 MG 1 cap Orally twice daily for 90 Active OneTouch Verio - TEST TWO TIMES A DAY for 50 Active Acetaminophen 500 MG 1 tab Orally twice daily PRN Dec, Active Levothyroxine Sodium 50 MCG 1 tablet in the morning on an empty stomach orally Daily for 90 Active Drisdol 98802 UNIT 1 capsule Orally once weekly for 90 Active Pantoprazole Sodium 40 MG 1 tablet Orally Once a day for 30 day(s) new on discharge 01/24/21 Jan, Active metFORMIN HCl 1000 MG 1 tablet with meals orally twice daily for 90 Active Fosinopril Sodium 10 mg 1 tablet Orally Once a day for 90 Active PROCEDURES No Information RESULTS No Results REASON FOR VISIT [facility] 01/24-Duodenitis, chronic pancreatitis MEDICAL (GENERAL) HISTORY Type Description Date Medical [...] 05/04 Surgical History left arm fracture @ [facility] 12/28/15 Hospitalization History L breast mastectomy 11/02 Hospitalization History lap ru 05/04 Hospitalization History 5 vaginal deliveries Goals Section No Information Health Concerns No Information MEDICAL EQUIPMENT No Information MENTAL STATUS No Information FUNCTIONAL STATUS No Information ASSESSMENTS Encounter Date Diagnosis Assessment Notes Treatment Notes Treatm ent Clinical Notes Jan, Other Patient reports that she is doing better since her discharge. Reports she lives alone, has no ambulation devices, and has no Home Care Services. Medication reconciliation completed. Reports she is aware of her appointment with her PCP on . Patient denies any further questions and concern with the policy writer at this time. PLAN OF TREATMENT Next Appt Details Provider Name:Sherin Keita, 2021-02-04 11:00:00 AM, [address], , [place], [address], Provider Name:Sherin Keita, 2021-02-11 03:00:00 PM, [address], , [place], [address], Insurance Providers Payer Name Payer Address Payer Phone Insured Name Patient Relati onship to Insured Coverage Start Date Coverage End Date AETNA MEDICARE AETNA [email or web address] [address] [facility] [id number] PAULINO NATHAN
--- OUTSIDE RECORDS SUMMARY | 2021-04-08 08:36 | CCD ---
Author Author [facility] Organization [facility] Address Unknown Phone Unavailable Care Team Providers Care Sanitary Plumber Name Role Phone Sherin Keita Unavailable PROBLEMS Type Condition ICD9-CM Code KOY20-LO Code Onset Dates Condition S tatus W/U Status Risk SNOMED Code Notes Problem Gastroesophageal reflux disease without esophagitis K21.9 Active confirmed 673180935 Problem Essential (primary) hypertension I10 Active conf irmed 68110373 Problem Hypothyroidism, unspecified E03.9 Active confirmed 70001371 Problem Personal history of breast cancer Z85.3 Active confirmed 122802306 Problem Mixed hyperlipidemia E78.2 Active confirmed 561662425 Problem Vitamin D deficiency E55.9 Active confirmed 45363802 Problem Type 2 diabetes mellitus with diabetic polyneuropathy E11.42 Active confirmed 20844854 Problem [facility] current use of insulin Z79.4 Active conf irmed 871437709 Problem History of left mastectomy Z90.12 Active confirmed 238506137 ALLERGIES No Known Allergies ENCOUNTERS from 1935 to 2021-01-24 Encounter Location Date Provider Diagnosis [place] [id number] [place] [address] Jan, Sherin Keita IMMUNIZATIONS Vaccine Route [...] Education Language: Question Answer Notes Languages spoken: Barbadian Hindu: Question Answer Notes Hindu 99 Other Drug and Alcohol Question Answer [...] Notes Start Da te End Date Status Drisdol 10670 UNIT 1 capsule Orally once weekly for 90 Active Gabapentin 100 MG 1 cap Orally twice daily for 90 Active Simvastatin 40 MG 1 tablet in the evening Orally Once a day for 90 Active metFORMIN HCl 1000 MG 1 tablet with meals orally twice daily for 90 Active OneTouch Delica Plus Szhwpo01W - TEST THREE TIMES A DAY DIRECTED for 30 Active Pen [place] 31G X 6 MM 1 needle subcutaneously before bedtime for 30 days Active Acetaminophen 500 MG 1 tab Orally twice daily PRN Dec, Active Levemir FlexTouch 100 UNIT/ML 46 units Subcutaneous before bedtime fo r 32 Active Fosinopril Sodium 10 mg 1 tablet Orally Once a day for 90 Active One Touch Ultra 2 Lancet _ as directed DX:E11.9 three times ashutosh y for 30 days September, Active Nystatin 756231 UNIT/ML 4 ml Mouth/Throat swish and swallow Four times a day for 14 Active Januvia 100 MG 1 tablet Orally Once a day for 90 Active OneTouch Verio - TEST TWO TIMES A DAY for 50 Active Anastrozole 1 MG 1 tablet Orally Once a day for 90 Active Levothyroxine Sodium 50 MCG 1 tablet in the morning on an empty stomach orally Daily for 90 Active PROCEDURES No Information RESULTS No Results REASON FOR VISIT call back MEDICAL (GENERAL) HISTORY Type Description Date Medical [...] 05/04 Surgical History left arm fracture @ [facility] 12/28/15 Hospitalization History L breast mastectomy 11/02 Hospitalization History lap ru 05/04 Hospitalization History 5 vaginal deliveries Goals Section No Information Health Concerns No Information MEDICAL EQUIPMENT No Information MENTAL STATUS No Information FUNCTIONAL STATUS No Information ASSESSMENTS No Information PLAN OF TREATMENT Medication Medication Name Sig Start Date Stop Date metFORMIN HCl 1000 MG 1 tablet with meals orally twice daily for 90 OneTouch Verio - TEST TWO TIMES A DAY for 50 Levemir FlexTouch 100 UNIT/ML 46 units Subcutaneous before bedti me for 32 OneTouch Delica Plus Hgbueu13E - TEST THREE TIMES A DAY DIREC JODI for 30 One Touch Ultra 2 Lancet _ as directed DX:E11.9 three times daily for 30 days September, Next Appt Details Provider Name:Sherin Keita, 2021-02-04 11:00:00 AM, [address], , [place], [address], Provider Name:Sherin Keita, 2021-02-11 03:00:00 PM, [address], , [place], [address], Insurance Providers Payer Name Payer Address Payer Phone Insured Name Patient Relati onship to Insured Coverage Start Date Coverage End Date AETNA MEDICARE AETNA [employer] INSURANCE [employer] III [address] [facility] [phone] PAULINO NATHAN
--- OUTSIDE RECORDS SUMMARY | 2021-04-08 08:36 | CCD | Continuity of Care Document ---
Author Author Radha CASTRO MD Organization Unknown Address [address] [place] [address] Phone [phone] Care Team Providers Care Communication Spec Name Role Phone Sherin Quezada R.P.A. AUTM [phone] AUTM Unavailable Problems Active Problems Provider Date [...] 1 injection twice a day Unknown Nystatin 959693Ejvy/ML Suspension 5ml swish in the mouth several [...] lb BMI (Body Mass Index) 27.5 kg/m2 [place] Body Weight 130 lb Weight 78.473 kg BSA (Body Surface Area) 1.89 m2 06/16/2019 9:52am Height 66.5 inches 5'6.50" Weight 174.00 lb BMI (Body Mass Index) 27.7 kg/m2 [place] Body Weight 130 lb Weight 78.926 kg BSA (Body Surface Area) 1.90 m2 Results Test Acquired Date Facility Test Result H/L Range Note BUN & Creatinine ([facility]) 02/19/2021 [facility] Main Lab [address] [place] [address] [phone] Blood Urea Nitrogen 17 mg/dL Normal 7-18 Creatinine With GFR 02/19/2021 [facility] [address] [place] [address] [phone] Creatinine For GFR 0.94 mg/dL Normal 0.55-1.30 Glomerular Filtration Rate > 60.0 Normal >32 1 Amylase & Lipase 02/19/2021 [facility] [address] [place] [address] [phone] Amylase 42 U/L Normal 25-115 Lipase 148 U/L Normal 73-393 Laboratory test finding 02/19/2021 [facility] Main Lab [address] [place] [address] [phone] IgG Subclass 4(Only) 13 mg/dL Normal 2-96 2 Ca19-9 Tumor Marker,Carbohydra 10.4 U/ML Normal <35.0 3 Liver Profile 02/19/2021 [facility] [address] [place] [address] [phone] Ast/Sgot 21 U/L Normal 7-37 Alt/SGPT 28 [...] Little GFR Left ESRD GFR <15 on [place] 2 Performed at: [facility] - [facility] [id number] Hotel Service Supervisor: Lillian Aguilar MD, Phone: [phone] THE [place] 19-9 ASSAY IS PERFORM ED ON THE [employer] BY CHEMILUMINESCENCE AND SHOULD NOT BE COMPARED INTERCHANGEABLY WITH OTHER METHODS. IT SHOULD NOT BE USED ALONE A SCREENING TEST OR DIAGNOSIS FOR THE PRESENCE OR ABSENCE OF MALIGNANT DISEASE. PREDICTIONS OF DISEASE RECURRENCE SHOULD NOT BE BASED SOLELY ON VALUES OBTAINED FROM SERIAL PATIENT SERUM VALUES. 4 02/21/21 (Thr Feb 21) 03:37 PM GILMER CASTRO Unremarkable/normal Procedures Date Code Description Status 02/13/2021 83213 Office/Outpatient New Moderate M DM 45-59 Minutes Completed Medical Devices Description No Information Available Encounters Description No Information Available Assessments Date Code Description Provider 02/13/2021 K29.80 [...] Matthew Odom M.D. DUODENITIS, PANCREATITIS Scheduled 02/13/2021 [facility] [address] [facility], [address] [place] [address] [phone]
--- OUTSIDE RECORDS SUMMARY | 2021-04-08 08:36 | CCD ---
Author Author Brandt Daly MD [facility] Organization Brandt Daly MD [facility] Address [address] [place] [id number] Phone Care Team Providers Care Mechanical Research Engineer Name Role Phone Malika OROZCO, ROMERO, Brandt Hong Unavailable [phone] Elle Douglas PP [phone] Reason for Referral No Reason for Referral Recorded Problems Includes: Active, inactive, and resolved Problems All Visits Onset Date - Time Resolved Date - Time Provider Co ndition Status Refractive Error - Myopia 04/25/2019 - 12:00AM Brandt Daly MD, FACS Active Macular Degeneration Nonexudative Bilateral Early Dry Stage 08/11/2016 - 12:00AM Brandt Daly MD, FACS Active Taking Medication For Diabetes Long-term Use of Oral H ypoglycemics 08/11/2016 - 12:00AM Brandt Daly MD, FACS Active 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 08/11/2016 - 12:00AM Brandt Daly MD, FACS Active Diabetes Mellitus Type 2 - Uncomplicated, Controlled 08/11/2016 - 12:00AM Brandt Daly MD, FACS Active History of Nicotine Dependence 08/11/2016 - 12:00AM Brandt Daly MD, FACS Active Essential Hypertension 08/11/2016 - 12:00AM Brandt Santizo MD, FACS Active Retinopathy Hypertensive Both Eyes 08/11/2016 - 12:00AM Brandt Daly MD, FACS Active Pseudophakic - Both Eyes 08/11/2016 - 12:00AM Brandt Daly MD, FACS Active Blepharitis Squamous 08/11/2016 - 12:00AM Brandt Trinh MD, FACS Active Squamous blepharitis right lower eyelid 08/11/2016 - 12:00AM Brandt Baker MD, FACS Active Squamous blepharitis left upper eyelid 08/11/2016 - 12:00AM Brandt Baker MD, FACS Active Squamous blepharitis left lower eyelid 08/11/2016 - 12:00AM Brandt Baker MD, FACS Active Dry Eye Syndrome Both Eyes 08/11/2016 - 12:00AM Brandt Daly MD, FACS Active Vitreous Disorders Degeneration 08/11/2016 - 12:00AM Brandt Daly MD, FACS Active Plan of Treatment Future Appointments Date Time Location Provider 1 Year Follow-Up & Testing 12/18/2021 8:35AM Brandt moe MD [facility] Brandt Daly MD, FACS Assessments Includes: Assessments for all patient encounters Findings Encounter Date Assessment of long-term use of oral hypoglycemics 1 Ye ar Follow-Up with Brandt Daly MD, FACS 04/25/2019 Early dry stage nonexudative macular degeneration of b oth eyes 1 Year Follow-Up with Brandt Daly MD, FACS 04/25/2019 Essential hypertension 1 Year Follow-Up with Brandt Baker MD, FACS 04/25/2019 History of nicotine dependence 1 Year Follow-Up with Gaby Daly MD, FACS 04/25/2019 Myopia 1 Year Follow-Up with Brandt hutton MD, FACS 04/25/2019 Posterior capsule opacification of eccentric capsule i n both eyes 1 Year Follow- Up with Brandt Daly MD, FACS 04/25/2019 Pseudophakia in both eyes 1 Year Follow-Up with Brandt Trinh MD, FACS 04/25/2019 Type 2 diabetes mellitus - uncomplicated, controlled 1 Year Follow-Up with Brandt Daly MD, FACS 04/25/2019 Early dry stage nonexudative macular degeneration of b oth eyes 1 Year Follow-Up with Brandt Daly MD, FACS 10/05/2017 Essential hypertension 1 Year Follow-Up with Brandt Baker MD, FACS 10/05/2017 History of nicotine dependence 1 Year Follow-Up with Gaby Daly MD, FACS 10/05/2017 Long-term use of oral hypoglycemics 1 Year Follow-Up brennen Daly MD, FACS 10/05/2017 Posterior capsule opacification of eccentric capsule i n both eyes 1 Year Follow- Up with Brandt Daly MD, FACS 10/05/2017 Pseudophakia 1 Year Follow-Up with Brandt hutton MD, FACS 10/05/2017 Type 2 diabetes mellitus - uncomplicated, controlled 1 Year Follow-Up with Brandt Daly MD, FACS 10/05/2017 Bilateral regular astigmatism REFRACTION with Brandt Rodriguez MD, FACS 09/03/2016 Astigmatism NEW PATIENT WITH REFERRAL with Brandt Daly MD, FACS 08/11/2016 Dry eye syndrome of both eyes NEW PATIENT WITH REFERRA L with Brandt Daly MD, FACS 08/11/2016 Early dry stage nonexudative macular degeneration of b oth eyes NEW PATIENT WITH REFERRAL with Brandt Daly MD, FACS 08/11/2016 Essential hypertension NEW PATIENT WITH REFERRAL [facility] Brandt Daly MD, FACS 08/11/2016 History of nicotine dependence NEW PATIENT WITH REFERR AL with Brandt Baker MD, FACS 08/11/2016 Hypertensive retinopathy of both eyes NEW PATIENT WITH REFERRAL with Brandt Daly MD, FACS 08/11/2016 Long-term use of oral hypoglycemics NEW PATIENT WITH R EFERRAL with Brandt aDly MD, FACS 08/11/2016 Posterior capsule opacification of eccentric capsule i n both eyes NEW PATIENT WITH REFERRAL with Brandt Daly MD, FACS 08/11/2016 Pseudophakia in both eyes NEW PATIENT WITH REFERRAL [facility] Brandt Daly MD, FACS 08/11/2016 Squamous blepharitis NEW PATIENT WITH REFERRAL [facility] Brandt Daly MD, FACS 08/11/2016 Type 2 diabetes mellitus - uncomplicated, controlled N EW PATIENT WITH REFERRAL with Brandt Daly MD, FACS 08/11/2016 Vitreous degeneration NEW PATIENT WITH REFERRAL [facility] Brandt Daly MD, FACS 08/11/2016 Instructions Instructions not supported for this document typeNo Instructions Recorded Medical Equipment - Implanted Devices Includes: Current and historical DevicesNo Medical Equipment Recorded Medications Includes: Current and historical Medications Current Medications (continue as prescribed) Levemir 100 UNIT/ML Subcutaneous Solution 04/25/2019 Provider: Diagnosis: Januvia 100MG Oral Tablet 10/05/2017 Provider: Diagnosis: Anastrozole 1MG Oral Tablet 10/05/2017 Provider: Diagnosis: Levothyroxine Sodium 50MCG Oral Tablet 10/05/2017 P rovider: Diagnosis: Fosinopril Sodium 10MG Oral Tablet 10/05/2017 Provi esthela: Diagnosis: Simvastatin 40MG Oral Tablet 10/05/2017 Provider: Diagnosis: Zantac 50MG Oral Tablet 10/05/2017 Provider: Diagnosis: Adult Aspirin EC Low Strength 81MG Oral Tablet Delayed Relea se 10/05/2017 Provider: Diagnosis: Gabapentin 100MG Oral Capsule 10/05/2017 Provider: Diagnosis: Tylenol 500 MG Oral Capsule 10/05/2017 Provider: Diagnosis: [facility] Vitamin D3 1000UNIT Oral Tablet Chewable 10/05/2017 Provider: Diagnosis: Nystatin [id number] Mouth/Throat Suspension 10/05/2017 Provider: Diagnosis: MetFORMIN HCl 1000MG Oral Tablet 08/11/2016 Provide r: Diagnosis: Medications Administered Includes: Administered Medications in patient's chartNo Administered Medications Recorded Vital Signs Includes: Vital Signs from 01/25/2020 through 01/24/2021No Vital Signs Recorded For Specified Dates Results Includes: Results from 01/25/2020 through 01/24/2021No Results Recorded For Specified Dates History of Present Illness History of Present Illness not supported for this document typeNo History of Present Illness Recorded Social History Description Last Updated Tobacco non-user 12/19/2020 No consumption of alcohol 12/19/2020 No tobacco use 12/19/2020 Not using drugs 12/19/2020 Smoking status : Former smoker 12/19/2020 Previous smoking history 04/25/2019 Procedures and Surgical History Surgical History Last Updated Surgical / procedural history Ankle Kaleigh ashia 1974, Cataract Surgery both eyes 1999, Gall Bladder Surgery 2010, Left Breast Masectomy 2010, Gall Bladder Surgery 2010, Broken Knee Surgery 2014, Wrist Surgery 2016 04/25/2019 Medical History Includes: Medical History in patient's chart Description Last Updated History of diabetes mellitus Type 2: Dx : 1999 A1C: unsure with Sherin Keita FBS: 155 this morning 12/19/2020 Not currently wearing eyeglasses 12/19/2020 History of fundoscopic exam through dilated pupils was performed 10/05/2017 04/25/2019 History of arthritis 04/25/2019 History of hyperlipidemia 04/25/2019 History of hypertension 04/25/2019 History of hypothyroidism 04/25/2019 No recent change in medical history 04/25/2019 Reported medical history heartburn 04/25/2019 Family History Includes: Family History in patient's chart Description Last Updated Daughter's history of arthritis 12/19/2020 Daughter's history of thyroid disorder 12/19/2020 Fraternal history of arthritis 12/19/2020 Fraternal history of family history of cancer 12/20/19 Fraternal history of hypertension 12/19/2020 Maternal history of arthritis 12/19/2020 Paternal history of arthritis 12/19/2020 Paternal history of cataract 12/19/2020 Paternal history of family history of cancer Paternal history of hypertension 12/19/2020 Son's history of arthritis 12/19/2020 Son's history of hypertension 12/19/2020 Sororal history of family history of cancer 12/19/2020 Sororal history of thyroid disorder 12/19/2020 Review of Systems Review of Systems not supported for this document typeNo Review of Systems Recorded Mental Status Mental Status not supported for this document type Description Oriented to time, place, and person Functional Status Functional Status not supported for this document typeNo Functional Status Recorded Physical Exam Physical Exam not supported for this document typeNo Physical Exam Recorded Immunizations Includes: Immunizations in patient's chartNo Immunizations Recorded Allergies Includes: Active, inactive, and resolved AllergiesNo Known Allergies Encounters Includes: Encounters from 01/25/2020 through 01/24/2021 Encounter Provider Location Date Check-In Time Check-Out Time D iagnosis 2 Year Follow-Up Brandt Daly MD, FACS Brandt Griffin [facility] 12/19/2020 2:24PM 3:41PM Insurance Includes: Active Insurance Policies Plan Name Member ID Group # Subscriber Relationship Effective Da shanna 1 - [employer]AGE [id number] Radha Osborne on Self Advance Directives Includes: Current Advance DirectivesNo Advance Directives Recorded Health Concerns Includes: Active Health ConcernsNo Active Health Concerns Recorded Goals Includes: Active GoalsNo Active Goals Recorded Interventions Includes: Interventions for active GoalsNo Interventions Recorded Evaluations & Outcomes Includes: Evaluations & Outcomes for active GoalsNo Outcomes Recorded
--- OUTSIDE RECORDS SUMMARY | 2021-04-08 08:37 | CCD ---
Author Author [facility] Organization [facility] Address Unknown Phone Unavailable Care Team Providers Care Barrel Rifler Hook Name Role Phone GILMER CASTRO MD Unavailable Unavailable REINDL, GILMER OROZCO Unavailable Unavailable REINDL, GILMER OROZCO Unavailable Unavailable REINDL, GILMER OROZCO Unavailable Unavailable REINENRIQUETA, GILMER OROZCO Unavailable Unavailable GLORIA, GILMER OROZCO Unavailable Unavailable GLORIA, GILMER OROZCO Unavailable Unavailable REINENRIQUETA, GILMER OROZCO Unavailable Unavailable REINENRIQUETA, GILMER OROZCO Unavailable Unavailable REINENRIQUETA, GILMER OROZCO Unavailable Unavailable REINENRIQUETA, GILMER OROZCO Unavailable Unavailable REINENRIQUETA, GILMER OROZCO Unavailable Unavailable REINENRIQUETA, GILMER OROZCO Unavailable Unavailable REINDL, GILMER OROZCO Unavailable Unavailable REINDL, GILMER OROZCO Unavailable Unavailable REINDL, GILMER OROZCO Unavailable Unavailable REINENRIQUETA, GILMER OROZCO Unavailable Unavailable REINDL, GILMER OROZCO Unavailable Unavailable REINENRIQUETA, GILMER OROZCO Unavailable Unavailable REINENRIQUETA, GILMER OROZCO Unavailable Unavailable REINENRIQUETA, GILMER OROZCO Unavailable Unavailable REINENRIQUETA, GILMER OROZCO Unavailable Unavailable REINENRIQUETA, GILMER OROZCO Unavailable Unavailable REINENRIQUETA, GILMER OROZCO Unavailable Unavailable REINENRIQUETA, GILMER OROZCO Unavailable Unavailable GLORIA, GILMER OROZCO Unavailable Unavailable GLORIA, GILMER OROZCO Unavailable Unavailable GLORIA, GILMER OROZCO Unavailable Unavailable GLORIA, GILMER OROZCO Unavailable Unavailable GLORIA, GILMER OROZCO Unavailable Unavailable GLORIA, GILMER OROZCO Unavailable Unavailable REINENRIQUETA, GILMER OROZCO Unavailable Unavailable GLORIA, GILMER OROZCO Unavailable Unavailable REINENRIQUETA, GILMER OROZCO Unavailable Unavailable REINDL, GILMER OROZCO Unavailable Unavailable REINDL, GILMER OROZCO Unavailable Unavailable REINDL, GILMER OROZCO Unavailable Unavailable REINDL, GILMER OROZCO Unavailable Unavailable REINDL, GILMER OROZCO Unavailable Unavailable REINDL, GILMER OROZCO Unavailable Unavailable REINDL, GILMER OROZCO Unavailable Unavailable REINDL, GILMER OROZCO Unavailable Unavailable Fish, [facility], PA-C Unavailable Unavailabl e Fish, [facility], PA-C Unavailable Unavailabl e Fish, [facility], PA-C Unavailable Unavailabl e Fish, [facility], PA-C Unavailable Unavailabl e Fish, [facility], PA-C Unavailable Unavailabl e Fish, [facility], PA-C Unavailable Unavailabl e Fish, [facility], PA-C Unavailable Unavailabl e Fish, [facility], PA-C Unavailable Unavailabl e Fish, [facility], PA-C Unavailable Unavailabl e Fish, [facility], PA-C Unavailable Unavailabl e Fish, [facility], PA-C Unavailable Unavailabl e Fish, [facility], PA-C Unavailable Unavailabl e Fish, [facility], PA-C Unavailable Unavailabl e Fish, [facility], PA-C Unavailable Unavailabl e Fish, [facility], PA-C Unavailable Unavailabl e Fish, [facility], PA-C Unavailable Unavailabl e Fish, [facility], PA-C Unavailable Unavailabl e Fish, [facility], PA-C Unavailable Unavailabl e Fish, [facility], PA-C Unavailable Unavailabl e Fish, [facility], PA-C Unavailable Unavailabl e Fish, [facility], PA-C Unavailable Unavailabl e Fish, [facility], PA-C Unavailable Unavailabl e Fish, [facility], PA-C Unavailable Unavailabl e Fish, [facility], PA-C Unavailable Unavailabl e Fish, [facility], PA-C Unavailable Unavailabl e Fish, [facility], PA-C Unavailable Unavailabl e Fish, [facility], PA-C Unavailable Unavailabl e Fish, Pham Kisha MPAS, PA-C Unavailable Unavailabl e Fish, Pham Beard MPAS, PA-C Unavailable Unavailabl e Fish, Pham Beard MPAS, PA-C Unavailable Unavailabl e Fish, Pham Beard MPAS, PA-C Unavailable Unavailabl e Fish, Pham Beard MPAS, PA-C Unavailable Unavailabl e Fish, Pham Beard MPAS, PA-C Unavailable Unavailabl e Fish, Pham Beard MPAS, PA-C Unavailable Unavailabl e Fish, Pham Beard MPAS, PA-C Unavailable Unavailabl e Fish, Pham Beard MPAS, PA-C Unavailable Unavailabl e Boswell, Jennifer Christy PA Unavailable Unavailable Boswell, Jennifer Christy PA Unavailable Unavailable Boswell, Jennifer Christy PA Unavailable Unavailable Boswell, Jennfier Christy PA Unavailable Unavailable Boswell, Jennifer Christy PA Unavailable Unavailable Boswell, Jennifer Christy PA Unavailable Unavailable Boswell, Jennifer Christy PA Unavailable Unavailable Boswell, Jennifer Christy PA Unavailable Unavailable Boswell, Jennifer Christy PA Unavailable Unavailable Boswell, Jennifer Christy PA Unavailable Unavailable Hayes Baker, Leon Carlton MD, FACS Unavailable Unavailable Hayes Baker, Leon Carlton MD, FACS Unavailable Unavailable Hayes Baker, Leon Carlton MD, FACS Unavailable Unavailable Hayes Baker, Leon Carlton MD, FACS Unavailable Unavailable Hayes Baker, Leon Carlton MD, FACS Unavailable Unavailable Hayes Baker, Leon Carlton MD, FACS Unavailable Unavailable Hayes Baker, Leon Carlton MD, FACS Unavailable Unavailable Hayes Baker, Leon Carlton MD, FACS Unavailable Unavailable Hayes Baker, Leon Carlton MD, FACS Unavailable Unavailable Hayes Baker, Leon Carlton MD, FACS Unavailable Unavailable Hayes Baker, Leon Carlton MD, FACS Unavailable Unavailable Hayes Baker, Leon Carlton MD, FACS Unavailable Unavailable Hayes Baker, Leon Carlton MD, FACS Unavailable Unavailable Hayes Abker, Leon Carlton MD, FACS Unavailable Unavailable Hayes Baker, Leon Carlton MD, FACS Unavailable Unavailable Hayes Baker, Leon Carlton MD, FACS Unavailable Unavailable Hayes Baker, Leon Carlton MD, FACS Unavailable Unavailable Hayes Baker, Leon Carlton MD, FACS Unavailable Unavailable Hayes Baker, Leon Carlton MD, FACS Unavailable Unavailable Hayes Baker, Leon Carlton MD, FACS Unavailable Unavailable Hayes Baker, Leon Carlton MD, FACS Unavailable Unavailable Hayes Baker, Leon Carlton MD, FACS Unavailable Unavailable Hayes Baker, Leon Cralton MD, FACS Unavailable Unavailable Hayes Baker, Leon Carlton MD, FACS Unavailable Unavailable Hayes Baker, Leon Carlton MD, FACS Unavailable Unavailable Hayes Baker, Leon Carlton MD, FACS Unavailable Unavailable Hayes Baker, Leon Carlton MD, FACS Unavailable Unavailable Hayes Baker, Leon Carlton MD, FACS Unavailable Unavailable Hayes Baker, Leon Carlton MD, FACS Unavailable Unavailable Hayes Baker, Leon Carlton MD, FACS Unavailable Unavailable Hayes Baker, Leon Carlton MD, FACS Unavailable Unavailable Hayes Baker, Leon Carlton MD, FACS Unavailable Unavailable Haeys Baker, Leon Carlton MD, FACS Unavailable Unavailable Hayes Baker, Leon Carlton MD, FACS Unavailable Unavailable Hayes Baker, Leon Carlton MD, FACS Unavailable Unavailable Hayes Baker, Leon Carlton MD, FACS Unavailable Unavailable Hayes Baker, Leon Carlton MD, FACS Unavailable Unavailable Hayes Baker, Leon Carlton MD, FACS Unavailable Unavailable Hayes Baker, Leon Carlton MD, FACS Unavailable Unavailable Re-disclosure Warning The records that you are about to access may contain information from federally-assisted alcohol or drug abuse programs. If such information is present, then the following federally mandated warning applies: This information has been disclosed to you from records protected by federal confidentiality rules (42 CFR part 2). The federal rules prohibit you from making any further disclosure of this information unless further disclosure is expressly permitted by the written consent of the person to whom it pertains or as otherwise permitted by 42 CFR part 2. A general authorization for the release of medical or other information is NOT sufficient for this purpose. The Federal rules restrict any use of the information to criminally investigate or prosecute any alcohol or drug abuse patient.The records that you are about to access may contain highly sensitive health information, the redisclosure of which is protected by Article 27-F of the [place] Public [facility] law. If you continue you may have access to information: Regarding HIV / AIDS; Provided by facilities licensed or operated by the [facility] Office of Mental Health; or Provided by the [facility] Office for People With Developmental Disabilities. If such information is present, then the following [facility] mandated warning applies: This information has been disclosed to you from confidential records which are protected by state law. State law prohibits you from making any further disclosure of this information without the specific written consent of the person to whom it pertains, or as otherwise permitted by law. Any unauthorized further disclosure in violation of state law may result in a fine or long term sentence or both. A general authorization for the release of medical or other information is NOT sufficient authorization for further disc losure. Family History Family Member Name Family Member Gender Family Member Status Date o f Status Description Data Source(s) Unknown Unknown Problem [facility] ([facility]) father Unknown Female Problem [facility] ([facility]) Unknown Female Problem [facility] ([facility] Unknown Female Problem [facility] ([facility]) Unknown Female Problem [facility] ([facility]) Unknown Female Problem [facility] ([facility]) Unknown Female Problem [facility] ([facility]) Unknown Unknown Problem [facility] ([facility]) Encounters Encounter Providers Location Date Indications Data Source(s ) [place] [address] [facility] [address] 02/18/2021 12:00:00 AM EDT eCW1 ([facility]) Outpatient Attender: GILMER Morelos/Cheryl/Jnoes/Laura nicholson 02/13/2021 11:00:00 AM EDT [facility] ([facility]) [place] [address] [facility] [address] 02/05/2021 12:00:00 AM EDT eCW1 ([facility]) Office Visit, Est Pt., Level 4 PC [address] [place] [address] 02/04/2021 12:00:00 AM EDT eCW1 ([facility]) Unknown [address] [facility] [address] 01/29/2021 12:00:00 AM EDT eCW1 ([facility]) Unknown [address] [facility] [address] 01/24/2021 12:00:00 AM EDT eCW1 ([facility]) <td ID="en[id number]">2 Y ear Follow-Up</td><td>Gilmer Baker MD, FACS</td><td>Gilmer Daly MD [facility]</td><td>12/19/2020</td><td>2:24PM</td><td>3:41PM</td><td></td>Outpatient Attender: Gilmer Baker MD, FACS Gilmer Daly MD [facility] 12/19/2020 02:24:0 0 PM EDT - 12/19/2020 03:41:00 PM EDT GERONIMO (Gilmer Baker MD [facility]) OFFICE OUTPATIENT VISIT 15 MINUTES Attender: Kisha HICKEY PA-C Physical Therapy 11/08/2020 10:45:00 AM EDT MED[facility] ([facility]) Office Visit Attender: Kisha HICKEY PA-C Physical Therapy 10/17/2020 02:00:00 PM EDT [facility] ([facility]) Unknown [address] [facility], [facility] [address] 10/03/2020 12:00:00 AM EDT eCW1 ([facility]) Office Visit Attender: Kisha HICKEY PA-C Physical Therapy 09/26/2020 01:30:00 PM EDT [facility] ([facility]) Outpatient Attender: Kisha HICKEY PA-C Physical Therapy 09/17/2020 10:15:00 AM EDT [facility] ([facility]) Unknown [address] [facility] [address] 08/21/2020 12:00:00 AM EDT eCW1 ([facility]) Office Visit, Est Pt., Level 4 PC [address] [place] [address] 08/14/2020 12:00:00 AM EDT eCW1 ([facility]) Outpatient Attender: Christy griffith 06/01/2020 04:25:00 PM EST [facility] ([facility]) Office Visit, Est Pt., Level 2 FC [address] [place] [address] 03/06/2020 12:00:00 AM EDT eCW1 ([facility]) Outpatient [address] [facility] [place] [address] 02/28/2020 12:00:00 AM EDT eCW1 ([facility]) Outpatient Attender: Christy Nava Prim gladis 02/24/2020 01:15:00 PM EDT [facility] ([facility], [facility]) Immunizations Vaccine Date Status Description Data Source(s) COVID-19 VACCINE Moderna 02/06/2021 12:00:00 AM EDT completed [facility] Vaccine Series Complete: YESThis Data wa s Submitted to [facility] [employer]. COVID-19 VACCINE Moderna 09/10/2020 12:00:00 AM EDT completed [facility] Vaccine Series Complete: YESThis Data wa s Submitted to [facility] [employer]. COVID-19 VACC,MRNA(MODERNA)/PF 09/10/2020 12:00:00 AM EDT completed [facility] COVID-19 VACCINE Moderna 08/10/2020 12:00:00 AM EDT completed [facility] Vaccine Series Complete: NOThis Data was Submitted to [facility] Via [employer]. COVID-19 VACCINE, MRNA-1273, LNP-S (MODERNA)/PF 08/10/2020 1 2:00:00 AM EDT completed [facility] COVID-19 dose #1 given elsewhere Unspecified 08/06/2020 09:4 5:00 AM EDT completed eCW1 ([facility]) COVID-19 dose #1 given elsewhere Unspecified 08/06/2020 09:4 5:00 AM EDT completed eCW1 ([facility]) COVID-19 dose #1 given elsewhere Unspecified 08/06/2020 09:4 5:00 AM EDT completed eCW1 ([facility]) COVID-19 dose #1 given elsewhere Unspecified 08/06/2020 09:4 5:00 AM EDT completed eCW1 ([facility]) COVID-19 dose #1 given elsewhere Unspecified 08/06/2020 09:4 5:00 AM EDT completed eCW1 ([facility]) COVID-19 dose #1 given elsewhere Unspecified 08/06/2020 09:4 5:00 AM EDT completed eCW1 ([facility]) COVID-19 dose #1 given elsewhere Unspecified 08/06/2020 09:4 5:00 AM EDT completed eCW1 ([facility]) COVID-19 dose #1 given elsewhere Unspecified 08/06/2020 09:4 5:00 AM EDT completed eCW1 ([facility]) influenza, recombinant, quadrIvalent,injectable, prese rvative free 02/28/2020 09:08:00 AM EDT completed eCW1 ([facility]) influenza, recombinant, quadrIvalent,injectable, prese rvative free 02/28/2020 09:08:00 AM EDT completed eCW1 ([facility]) influenza, recombinant, quadrIvalent,injectable, prese rvative free 02/28/2020 09:08:00 AM EDT completed eCW1 ([facility]) influenza, recombinant, quadrIvalent,injectable, prese rvative free 02/28/2020 09:08:00 AM EDT completed eCW1 ([facility]) influenza, recombinant, quadrIvalent,injectable, prese rvative free 02/28/2020 09:08:00 AM EDT completed eCW1 ([facility]) influenza, recombinant, quadrIvalent,injectable, prese rvative free 02/28/2020 09:08:00 AM EDT completed eCW1 ([facility]) influenza, recombinant, quadrIvalent,injectable, prese rvative free 02/28/2020 09:08:00 AM EDT completed eCW1 ([facility]) influenza, recombinant, quadrIvalent,injectable, prese rvative free 02/28/2020 09:08:00 AM EDT completed eCW1 ([facility]) influenza, recombinant, quadrIvalent,injectable, prese rvative free 02/28/2020 09:08:00 AM EDT completed eCW1 ([facility]) influenza, recombinant, quadrIvalent,injectable, prese rvative free 02/28/2020 09:08:00 AM EDT completed eCW1 ([facility]) Medications Medication Brand Name Start Date Product Form Dose Route Admi nistrative Instructions Pharmacy Instructions Status Indications Reaction Description Data Source(s) 100 mg 04/03/2021 12:00:00 AM EST tablet 90 TAKE ONE TABLET BY MOUTH EVERY DAY TAKE ONE TABLET BY MOUTH EVERY DAY SOLD: 04/04/2021 [facility] 60 mcg (15 mcg x 4)/0.5 mL 04/02/2021 12:00:00 AM EST syring e 0 USE DIRECTED USE DIRECTED SOLD: 04/02/2021 [facility] 100 unit/mL (3 mL) 02/27/2021 12:00:00 AM EDT insulin pen 15 INJECT 46 UNITS AT BEDTIME INJECT 46 UNITS AT BEDTIME SOLD: 02/28/2021 [facility] 100 unit/mL (3 mL) 02/27/2021 12:00:00 AM EDT insulin pen 15 INJECT 46 UNITS AT BEDTIME INJECT 46 UNITS AT BEDTIME SOLD: 04/03/2021 [facility] pantoprazole 40 MG Delayed Release Oral Tablet PANTOPRAZOLE SODIUM 02/22/2021 12:00:00 AM EDT tablet,delayed release (DR/EC) 30 T ALEXANDRO ONE TABLET BY MOUTH EVERY DAY TAKE ONE TABLET BY MOUTH EVERY DAY SOLD: 04/01/2021 [facility] pantoprazole 40 MG Delayed Release Oral Tablet PANTOPRAZOLE SODIUM 02/22/2021 12:00:00 AM EDT tablet,delayed release (DR/EC) 30 T ALEXANDRO ONE TABLET BY MOUTH EVERY DAY TAKE ONE TABLET BY MOUTH EVERY DAY SOLD: 02/28/2021 [facility] 31 gauge x 1/4" 02/06/2021 12:00:00 AM EDT needle 100 USE DIRECTED AT BEDTIME USE DIRECTED AT BEDTIME SOLD: 02/16/2021 [facility] 100 mcg/0.5 mL 02/06/2021 12:00:00 AM EDT suspension 0 INJECT DIRECTED PER STANDING ORDER INJECT DIRECTED PER STANDING ORDER SOLD: 02/06/2021 [facility] 100 mg 02/06/2021 12:00:00 AM EDT capsule 180 TAKE ONE CAPSULE BY MOUTH TWICE A DAY TAKE ONE CAPSULE BY MOUTH TWICE A DAY SOLD: 02/16/2021 [facility] tramadol hydrochloride 50 MG Oral Tablet traMADol HCl 50 MG traMADol HCl 50 MG 02/05/2021 12:00:00 AM EDT 1.0 {tablet_as_needed} active traMADol HCl 50 MG eCW1 ([facility]) 50 mg 02/05/2021 12:00:00 AM EDT tablet 60 TAKE ONE TABLET BY MOUTH TWICE A DAY NEEDED * MAXIMUM DAILY DOSE = 2 TAKE ONE TABLET BY MOUTH TWICE A DAY NEEDED * MAXIMUM DAILY DOSE = 2 SOLD: 02/06/2021 [facility] 10 mg 02/05/2021 12:00:00 AM EDT tablet 90 TAKE ONE TABLET BY MOUTH EVERY DAY TAKE ONE TABLET BY MOUTH EVERY DAY SOLD: 02/06/2021 [facility] tramadol hydrochloride 50 MG Oral Tablet traMADol HCl 50 MG traMADol HCl 50 MG 02/05/2021 12:00:00 AM EDT 1.0 {tablet_as_needed} active traMADol HCl 50 MG eCW1 ([facility]) tramadol hydrochloride 50 MG Oral Tablet traMADol HCl 50 MG traMADol HCl 50 MG 02/05/2021 12:00:00 AM EDT 1.0 {tablet_as_needed} active traMADol HCl 50 MG eCW1 ([facility]) 100 mg/mL 01/24/2021 12:00:00 AM EDT suspension 1260 TAKE 10ML BY MOUTH FOUR TIMES A DAY BEFORE MEALS AND AT BEDTIME TAKE 10ML BY MOUTH FOUR TIMES A DAY BEFORE MEALS AND AT BEDTIME SOLD: 01/24/2021 [facility] Sucralfate 100 MG/ML Oral Suspension Sucralfate 1 GM/10ML Hurt cralfate 1 GM/10ML 01/24/2021 12:00:00 AM EDT 10.0 {ml_on_an_empty_stomach} active Sucralfate 1 GM/10ML eCW1 ([facility]) Sucralfate 100 MG/ML Oral Suspension Sucralfate 1 GM/10ML Hurt cralfate 1 GM/10ML 01/24/2021 12:00:00 AM EDT 10.0 {ml_on_an_empty_stomach} active Sucralfate 1 GM/10ML eCW1 ([facility]) pantoprazole 40 MG Delayed Release Oral Tablet Pantopr azole Sodium 40 MG Pantoprazole Sodium 40 MG 01/24/2021 12:00:00 AM EDT 1.0 {tablet} active Pantoprazole Sodium 40 MG eCW1 ( [facility]) Sucralfate 100 MG/ML Oral Suspension Sucralfate 1 GM/10ML Hurt cralfate 1 GM/10ML 01/24/2021 12:00:00 AM EDT 10.0 {ml_on_an_empty_stomach} active Sucralfate 1 GM/10ML eCW1 ([facility]) pantoprazole 40 MG Delayed Release Oral Tablet Pantopr azole Sodium 40 MG Pantoprazole Sodium 40 MG 01/24/2021 12:00:00 AM EDT 1.0 {tablet} active Pantoprazole Sodium 40 MG eCW1 ( [facility]) pantoprazole 40 MG Delayed Release Oral Tablet Pantopr azole Sodium 40 MG Pantoprazole Sodium 40 MG 01/24/2021 12:00:00 AM EDT 1.0 {tablet} active Pantoprazole Sodium 40 MG eCW1 ( [facility]) pantoprazole 40 MG Delayed Release Oral Tablet Pantopr azole Sodium 40 MG Pantoprazole Sodium 40 MG 01/24/2021 12:00:00 AM EDT 1.0 {tablet} active Pantoprazole Sodium 40 MG eCW1 ( [facility]) pantoprazole 40 MG Delayed Release Oral Tablet PANTOPRAZOLE SODIUM 01/24/2021 12:00:00 AM EDT tablet,delayed release (DR/EC) 30 T ALEXANDRO ONE TABLET BY MOUTH EVERY DAY TAKE ONE TABLET BY MOUTH EVERY DAY SOLD: 01/24/2021 [facility] Sucralfate 100 MG/ML Oral Suspension Sucralfate 1 GM/10ML Hurt cralfate 1 GM/10ML 01/24/2021 12:00:00 AM EDT 10.0 {ml_on_an_empty_stomach} active Sucralfate 1 GM/10ML eCW1 ([facility]) 100 mg 12/24/2020 12:00:00 AM EDT tablet 90 TAKE ONE TABLET BY MOUTH EVERY DAY TAKE ONE TABLET BY MOUTH EVERY DAY SOLD: 12/25/2020 [facility] 33 gauge 12/06/2020 12:00:00 AM EDT misc 100 TEST THREE TIMES A DAY DIRECTED TEST THREE TIMES A DAY DIRECTED SOLD: 12/19/2020 [facility] BLOOD SUGAR DIAGNOSTIC 11/19/2020 12:00:00 AM EDT strip 200 ONE MISCELLANEOUS TWICE A DAY ONE MISCELLANEOUS TWICE A DAY SOLD: 02/05/2021 [facility] BLOOD SUGAR DIAGNOSTIC 11/19/2020 12:00:00 AM EDT strip 200 ONE MISCELLANEOUS TWICE A DAY ONE MISCELLANEOUS TWICE A DAY SOLD: 11/24/2020 [facility] Diclofenac Sodium 0.01 MG/MG Topical Gel [Voltaren] Voltaren 11/08/2020 12:00:00 AM EDT active [facility] ([facility]) 1 % 11/08/2020 12:00:00 AM EDT gel 100 APPLY TO AFFECTED AREA 2-3 TIMES DAILY APPLY TO AFFECTED AREA 2-3 TIMES DAILY SOLD: 11/08/2020 [facility] 1,000 mg 11/06/2020 12:00:00 AM EDT tablet 180 TAKE ONE TABLET BY MOUTH TWICE A DAY WITH MEALS TAKE ONE TABLET BY MOUTH TWICE A DAY WITH MEALS SOLD: 02/05/2021 [facility] 1,000 mg 11/06/2020 12:00:00 AM EDT tablet 180 TAKE ONE TABLET BY MOUTH TWICE A DAY WITH MEALS TAKE ONE TABLET BY MOUTH TWICE A DAY WITH MEALS SOLD: 11/08/2020 [facility] 100 unit/mL (3 mL) 10/09/2020 12:00:00 AM EDT insulin pen 15 INJECT 46 UNITS BEFORE BED UNDER THE SKIN INJECT 46 UNITS BEFORE BED UNDER THE SKIN SOLD: 01/24/2021 [facility] 100 unit/mL (3 mL) 10/09/2020 12:00:00 AM EDT insulin pen 15 INJECT 46 UNITS BEFORE BED UNDER THE SKIN INJECT 46 UNITS BEFORE BED UNDER THE SKIN SOLD: 10/10/2020 [facility] 100 unit/mL (3 mL) 10/09/2020 12:00:00 AM EDT insulin pen 15 INJECT 46 UNITS BEFORE BED UNDER THE SKIN INJECT 46 UNITS BEFORE BED UNDER THE SKIN SOLD: 12/19/2020 [facility] 100 unit/mL (3 mL) 10/09/2020 12:00:00 AM EDT insulin pen 15 INJECT 46 UNITS BEFORE BED UNDER THE SKIN INJECT 46 UNITS BEFORE BED UNDER THE SKIN SOLD: 11/14/2020 [facility] 33 gauge 10/03/2020 12:00:00 AM EDT misc 100 TEST THREE TIMES A DAY DIRECTED TEST THREE TIMES A DAY DIRECTED SOLD: 10/10/2020 [facility] 33 gauge 10/03/2020 12:00:00 AM EDT misc 100 TEST THREE TIMES A DAY DIRECTED TEST THREE TIMES A DAY DIRECTED SOLD: 11/08/2020 [facility] Acetaminophen 300 MG / Codeine Phosphate 30 MG Oral Ta blet Acetaminophen-Codeine #3 09/17/2020 12:00:00 AM EDT active [facility] ([facility]) 1 mg 07/27/2020 12:00:00 AM EST tablet 90 TAKE ONE TABLET BY MOUTH EVERY DAY TAKE ONE TABLET BY MOUTH EVERY DAY SOLD: 08/08/2020 [facility] 10 mg 07/27/2020 12:00:00 AM EST tablet 90 TAKE ONE TABLET BY MOUTH EVERY DAY TAKE ONE TABLET BY MOUTH EVERY DAY SOLD: 11/08/2020 [facility] 1 mg 07/27/2020 12:00:00 AM EST tablet 90 TAKE ONE TABLET BY MOUTH EVERY DAY TAKE ONE TABLET BY MOUTH EVERY DAY SOLD: 11/08/2020 [facility] 50 mcg 07/27/2020 12:00:00 AM EST tablet 90 TAKE ONE TABLET BY MOUTH EVERY MORNING ON AN EMPTY STOMACH TAKE ONE TABLET BY MOUTH EVERY MORNING O N AN EMPTY STOMACH SOLD: 02/05/2021 [facility] 40 mg 07/27/2020 12:00:00 AM EST tablet 90 TAKE ONE TABLET BY MOUTH IN THE EVENING TAKE ONE TABLET BY MOUTH IN THE EVENING SOLD: 11/08/2020 [facility] 10 mg 07/27/2020 12:00:00 AM EST tablet 90 TAKE ONE TABLET BY MOUTH EVERY DAY TAKE ONE TABLET BY MOUTH EVERY DAY SOLD: 08/08/2020 [facility] 50 mcg 07/27/2020 12:00:00 AM EST tablet 90 TAKE ONE TABLET BY MOUTH EVERY MORNING ON AN EMPTY STOMACH TAKE ONE TABLET BY MOUTH EVERY MORNING O N AN EMPTY STOMACH SOLD: 08/08/2020 [facility] 40 mg 07/27/2020 12:00:00 AM EST tablet 90 TAKE ONE TABLET BY MOUTH IN THE EVENING TAKE ONE TABLET BY MOUTH IN THE EVENING SOLD: 08/08/2020 [facility] 1 mg 07/27/2020 12:00:00 AM EST tablet 90 TAKE ONE TABLET BY MOUTH EVERY DAY TAKE ONE TABLET BY MOUTH EVERY DAY SOLD: 02/05/2021 [facility] 1,250 mcg (50,000 unit) 07/27/2020 12:00:00 AM EST capsule 12 TAKE ONE CAPSULE BY MOUTH ONCE WEEKLY TAKE ONE CAPSULE BY MOUTH ONCE WEEKLY SOLD: 08/08/2020 [facility] 40 mg 07/27/2020 12:00:00 AM EST tablet 90 TAKE ONE TABLET BY MOUTH IN THE EVENING TAKE ONE TABLET BY MOUTH IN THE EVENING SOLD: 02/05/2021 [facility] 50 mcg 07/27/2020 12:00:00 AM EST tablet 90 TAKE ONE TABLET BY MOUTH EVERY MORNING ON AN EMPTY STOMACH TAKE ONE TABLET BY MOUTH EVERY MORNING O N AN EMPTY STOMACH SOLD: 11/08/2020 [facility] 100 mg 07/26/2020 12:00:00 AM EST tablet 90 TAKE ONE TABLET BY MOUTH EVERY DAY TAKE ONE TABLET BY MOUTH EVERY DAY SOLD: 08/08/2020 [facility] BLOOD SUGAR DIAGNOSTIC 06/19/2020 12:00:00 AM EST strip 100 TEST TWO TIMES A DAY TEST TWO TIMES A DAY SOLD: 10/02/2020 [facility] BLOOD SUGAR DIAGNOSTIC 06/19/2020 12:00:00 AM EST strip 100 TEST TWO TIMES A DAY TEST TWO TIMES A DAY SOLD: 08/16/2020 [facility] BLOOD SUGAR DIAGNOSTIC 06/19/2020 12:00:00 AM EST strip 100 TEST TWO TIMES A DAY TEST TWO TIMES A DAY SOLD: 06/23/2020 [facility] 100 unit/mL (3 mL) 04/24/2020 12:00:00 AM EST insulin pen 15 INJECT 46 UNITS UNDER THE SKIN BEFORE BEDTIME INJECT 46 UNITS UNDER THE SKIN BEFORE BEDTIME SOLD: 07/01/2020 [facility] 100 unit/mL (3 mL) 04/24/2020 12:00:00 AM EST insulin pen 15 INJECT 46 UNITS UNDER THE SKIN BEFORE BEDTIME INJECT 46 UNITS UNDER THE SKIN BEFORE BEDTIME SOLD: 05/31/2020 [facility] 100 unit/mL (3 mL) 04/24/2020 12:00:00 AM EST insulin pen 15 INJECT 46 UNITS UNDER THE SKIN BEFORE BEDTIME INJECT 46 UNITS UNDER THE SKIN BEFORE BEDTIME SOLD: 09/10/2020 [facility] 100 unit/mL (3 mL) 04/24/2020 12:00:00 AM EST insulin pen 15 INJECT 46 UNITS UNDER THE SKIN BEFORE BEDTIME INJECT 46 UNITS UNDER THE SKIN BEFORE BEDTIME SOLD: 04/30/2020 [facility] 100 unit/mL (3 mL) 04/24/2020 12:00:00 AM EST insulin pen 15 INJECT 46 UNITS UNDER THE SKIN BEFORE BEDTIME INJECT 46 UNITS UNDER THE SKIN BEFORE BEDTIME SOLD: 08/08/2020 [facility] 10 mg 04/16/2020 12:00:00 AM EST tablet 90 TAKE ONE TABLET BY MOUTH EVERY DAY TAKE ONE TABLET BY MOUTH EVERY DAY SOLD: 04/30/2020 [facility] 100 mg 04/16/2020 12:00:00 AM EST capsule 180 TAKE ONE CAPSULE BY MOUTH TWICE A DAY TAKE ONE CAPSULE BY MOUTH TWICE A DAY SOLD: 11/08/2020 [facility] 100 mg 04/16/2020 12:00:00 AM EST capsule 180 TAKE ONE CAPSULE BY MOUTH TWICE A DAY TAKE ONE CAPSULE BY MOUTH TWICE A DAY SOLD: 04/30/2020 [facility] 100 mg 04/16/2020 12:00:00 AM EST capsule 180 TAKE ONE CAPSULE BY MOUTH TWICE A DAY TAKE ONE CAPSULE BY MOUTH TWICE A DAY SOLD: 08/08/2020 [facility] 100,000 unit/mL 03/06/2020 12:00:00 AM EDT suspension 224 TAKE 4 MLS FOUR TIMES A DAY SWISH AND SWALLOW FOR 14 DAYS TAKE 4 MLS FOUR TIMES A DAY SWISH AND SWALLOW FOR 14 DAYS SOLD: 03/14/2020 [facility] 100 mg 01/14/2020 12:00:00 AM EDT tablet 90 TAKE ONE TABLET BY MOUTH EVERY DAY TAKE ONE TABLET BY MOUTH EVERY DAY SOLD: 04/30/2020 [facility] 31 gauge x 1/4" 01/13/2020 12:00:00 AM EDT needle 90 USE AT BEDTIME DIRECTED USE AT BEDTIME DIRECTED SOLD: 11/08/2020 [facility] 31 gauge x 1/4" 01/13/2020 12:00:00 AM EDT needle 90 USE AT BEDTIME DIRECTED USE AT BEDTIME DIRECTED SOLD: 08/08/2020 [facility] 31 gauge x 1/4" 01/13/2020 12:00:00 AM EDT needle 90 USE AT BEDTIME DIRECTED USE AT BEDTIME DIRECTED SOLD: 04/30/2020 [facility] BLOOD SUGAR DIAGNOSTIC 12/23/2019 12:00:00 AM EDT strip 100 TEST TWO TIMES A DAY TEST TWO TIMES A DAY SOLD: 04/30/2020 [facility] BLOOD SUGAR DIAGNOSTIC 12/23/2019 12:00:00 AM EDT strip 100 TEST TWO TIMES A DAY TEST TWO TIMES A DAY SOLD: 02/20/2020 [facility] 100 unit/mL (3 mL) 10/09/2019 12:00:00 AM EDT insulin pen 15 INJECT 46 UNITS UNDER THE SKIN AT BEDTIME INJECT 46 UNITS UNDER THE SKIN AT BEDTIME SOLD: 02/20/2020 [facility] Metformin hydrochloride 1000 MG Oral Tablet 1,000 mg METFORM IN HCL 10/07/2019 12:00:00 AM EDT tablet 180 TAKE ONE TABLET BY MOUTH TWICE A DAY WITH MEALS TAKE ONE TABLET BY MOUTH TWICE A DAY WITH MEALS SOLD: 04/30/2020 [facility] Metformin hydrochloride 1000 MG Oral Tablet 1,000 mg METFORM IN HCL 10/07/2019 12:00:00 AM EDT tablet 180 TAKE ONE TABLET BY MOUTH TWICE A DAY WITH MEALS TAKE ONE TABLET BY MOUTH TWICE A DAY WITH MEALS SOLD: 08/08/2020 [facility] 1 mg 07/12/2019 12:00:00 AM EST tablet 90 TAKE ONE TABLET BY MOUTH EVERY DAY TAKE ONE TABLET BY MOUTH EVERY DAY SOLD: 04/30/2020 [facility] 50 mcg 07/12/2019 12:00:00 AM EST tablet 90 TAKE ONE TABLET BY MOUTH EVERY DAY IN THE MORNING ON AN EMPTY STOMACH TAKE ONE TABLET BY MOUTH EVERY DAY IN TH MORNING ON AN EMPTY STOMACH SOLD: 04/30/2020 [facility] 1,250 mcg (50,000 unit) 07/11/2019 12:00:00 AM EST capsule 12 TAKE 1 CAPSULE BY MOUTH ONCE WEEKLY TAKE 1 CAPSULE BY MOUTH ONCE WEEKLY SOLD: 04/30/2020 [facility] 40 mg 07/11/2019 12:00:00 AM EST tablet 90 TAKE ONE TABLET BY MOUTH EVERY DAY IN THE EVENING TAKE ONE TABLET BY MOUTH EVERY DAY IN THE EVENING SOLD : 04/30/2020 [facility] Insurance Providers Payer name Policy type / Coverage type Policy ID Covered constitution party ID Covered constitution party's relationship to ravi Policy Ravi Plan Information Wellcare Advantage Plan Medigap Part B [id number] Self Todays Options Medigap Part B [id number] Self Blue Shield [facility] Advantage Medigap Part B [id number] Self [id number] Todays Options Commercial [id number] Self AETNA MEDICARE O [id number] S MEBTD PML WELLCARE O [id number] S [id number] WELLCARE [id number] SP [id number] TODAYS OPTIONS [id number] SP [id number] [facility] Health Plans [facility] Commercial [id number] Self [id number] TODAYS OPTIONS [id number] SP [id number] TODAYS OPTIONS/ANDORRAN O [id number] S [id number] ANSI-Medicare Part B [id number] ANSI-Medicare Part B [id number] ANSI-Medicare Part B [id number] ANSI-Medicare Part B [id number] Todays Options Commercial [id number] Self [id number] ANSI-Medicare Part B [id number] ANSI-Medicare Part B [id number] ANSI-Medicare Part B [id number] ANSI-Medicare Part B [id number] ANSI-Medicare Part B [id number] ANSI-Medicare Part B [id number] ANSI-Medicare Part B [id number] ANSI-Medicare Part B [id number] Today's Options Medicare Commercial [id number] Self [id number] Today's Options Medicare Commercial [id number] Self [id number] TODAYS OPTIONS/ANDORRAN O [id number] S [id number] Today's Option Medicare Commercial [id number] Self [id number] Today's Options Medicare Commercial [id number] Self [id number] MEDICARE BLUE PPO 306 [id number] SP [id number] Today's Options Medicare Commercial [id number] Self [id number] Medicaid [place] Medigap Part B [id number] Self TOD[place] [id number] [id number] Today's Option Medicare Commercial [id number] Self BS Medicare Blue Ppo/Hmo Commercial [id number] Self EXCELLUS BCBS P [id number] S [id number] [id number] BLUE CROSS BLUE SHIELD-O/P [id number] 18 [id number] BLUE CROSS BLUE SHIELD-CLINIC [id number] AETNA MEDICARE [id number] SP [id number] AETNA MEDICARE [id number] SP [id number] AETNA MEDICARE [id number] SP MEBTD PML SELF PAY ONLY Problems, Conditions, and Diagnoses Code Display Name Description Problem Type Effective Dates Data Source(s) K29.80 [id number] Duodenitis Problem 02/04/2021 12:00:00 AM ED T eCW1 ([facility]) Surgeries/Procedures Procedure Description Date Indications Data Source(s) OFFICE OUTPATIENT NEW 45 MINUTES 02/13/2021 12:00:00 A M EDT [facility] ([facility]) RADEX WRIST 2 VIEWS 11/08/2020 12:00:00 AM EDT [facility] ([facility]) OFFICE OUTPATIENT VISIT 15 MINUTES 11/08/2020 12:00:00 AM EDT [facility] ([facility]) RADEX WRIST 2 VIEWS 10/17/2020 12:00:00 AM EDT [facility] ([facility]) RADEX WRIST 2 VIEWS 09/26/2020 12:00:00 AM EDT [facility] ([facility]) CLTX DSTL RADIAL FX/EPIPHYSL SEP W/O MANJ 09/17/2020 1 2:00:00 AM EDT [facility] ([facility]) RADEX WRIST COMPLETE MINIMUM 3 VIEWS 09/17/2020 12:00: 00 AM EDT [facility] ([facility]) OFFICE OUTPATIENT VISIT 25 MINUTES 09/17/2020 12:00:00 AM EDT [facility] ([facility]) Immunization: Flublok Quadrivalent (18 years & older) 0.5mL IM (Influenza) 02/28/2020 12:00:00 AM EDT eCW1 ([facility]) Results ID Date Data Source [id number] 02/19/2021 08:53:00 AM EDT [facility] ([facility]) Name Value Range Interpretation Code Description Data Natalie rce(s) Supporting Document(s) Creatinine For GFR 0.94 mg/dL 0.55-1.30 Normal (applies to non -numeric results) [facility] ([facility]) Glomerular Filtration Rate Laboratory test result Normal (applies to non- numeric results) [facility]) <content>Units are mL/min/1.73 m2</content>
<content></content>
<content>Chronic Kidney Disease Staging per NKF:</content>
<content></content>
<content>Stage I & II GFR >=60 Normal to Mildly Decreased</content>
<content>Stage III GFR 30- 59 Moderately Decreased</content>
<content>Stage IV GFR 15-29 Severely Decreased</content>
<content>Stage V GFR <15 Very Little GFR Left</content>
<content>ESRD GFR <15 on OB NURSE</content>
<content></content> ID Date Data Source [id number] 02/19/2021 08:53:00 AM EDT [facility] ([facility]) Name Value Range Interpretation Code Description Data Natalie rce(s) Supporting Document(s) Urea nitrogen [Mass/volume] in Serum or Plasma 17 mg/dL 7 -18 Normal (applies to non-numeric results) [facility] ([facility]) ID Date Data Source [id number] 02/19/2021 08:53:00 AM EDT [facility]) Name Value Range Interpretation Code Description Data Natalie rce(s) Supporting Document(s) Ast/Sgot 21 U/L 7-37 Normal (applies to non-numeric resul ts) [facility] Alkaline Phosphatase 74 U/L 45-117 Normal (applies to non-num reed results) [facility] ([facility]) Alt/SGPT 28 U/L 12-78 Normal (applies to non-numeric resul ts) [facility] ([facility]) Bilirubin,Direct 0.2 mg/dL 0.0-0.2 Normal (applies to non-numeric results) [facility] ([facility]) Bilirubin,Total 0.4 mg/dL 0.2-1.0 Normal (applies to non-numeric results) [facility] ([facility]) Total Protein 6.8 GM/DL 6.4-8.2 Normal (applies to non-numeric re sults) [facility] ([facility]) Albumin 3.6 GM/DL 3.2-5.2 Normal (applies to non-numeric resul ts) [facility] ([facility]) Albumin/Globulin Ratio 1.1 1.2-2.2 Below low normal [facility] ([facility]) 02/21/21 (Thr Feb 21) 03:37 PM GILMER FERRER Unremarkable/normal ID Date Data Source [id number] 02/19/2021 08:53:00 AM EDT [facility] ([facility]) Name Value Range Interpretation Code Description Data Natalie rce(s) Supporting Document(s) IgG subclass 4 [Mass/volume] in Serum 13 mg/dL 2-96 Normal (applies to non- numeric results) [facility]) Performed at: [address] [id number] [address] [employer] Manager: Lillian Aguilar MD, Phone: [phone] Cancer Ag 19-9 [Units/volume] in Serum or Plasma 10.4 U/ML Normal (applies to non-numeric results) [facility] ([facility]) THE CA 19-9 ASSAY IS PERFORMED ON THE SuddenValuesAUR BY CHEMILUMINESCENCE AND SHOULD NOT BE COMPARED INTERCHANGEABLY WITH OTHER METHODS. IT SHOULD NOT BE USED ALONE A SCREENING TEST OR DIAGNOSIS FOR THE PRESENCE OR ABSENCE OF MALIGNANT DISEASE. PREDICTIONS OF DISEASE RECURRENCE SHOULD NOT BE BASED SOLELY ON VALUES OBTAINED FROM SERIAL PATIENT SERUM VALUES. ID Date Data Source [id number] 02/19/2021 08:53:00 AM EDT [facility] ([facility], ) Name Value Range Interpretation Code Description Data Natalie rce(s) Supporting Document(s) Amylase [Enzymatic activity/volume] in Serum or Plasma 42 U/L 25-115 Normal (applies to non-numeric results) [facility] ([facility] ) Lipoprotein lipase [Enzymatic activity/volume] in Serum or P lasma 148 U/L 73-393 Normal (applies to non-numeric results) [facility] ([facility], ) ID Date Data Source [id number] 01/24/2021 01:11:00 AM EDT [facility] Name Value Range Interpretation Code Description Data Natalie rce(s) Supporting Document(s) SARS coronavirus 2 RNA [Presence] in Res piratory specimen by SUSAN with probe detection NEGATIVE [facility] This lab was ordered by [facility] a nd reported by [facility]. ID Date Data Source [id number] 08/10/2020 12:00:00 AM EDT [facility] Name Value Range Interpretation Code Description Data Natalie rce(s) Supporting Document(s) SARS-CoV2 Rapid Antigen Negative [facility] This lab was reported by [facility]. ID Date Data Source [id number] 06/01/2020 12:00:00 AM EST [facility] Name Value Range Interpretation Code Description Data Natalie rce(s) Supporting Document(s) SARS-CoV2 Rapid Antigen Positive [facility] This lab was reported by [facility]. ID Date Data Source [id number] 05/22/2020 12:00:00 AM EST [facility] Name Value Range Interpretation Code Description Data Natalie rce(s) Supporting Document(s) SARS coronavirus 2 RNA [facility] This lab was ordered by [facility] and rep orted by [facility]. ID Date Data Source TSH 02/28/2020 04:20:27 AM EDT eCW1 ([facility]) Name Value Range Interpretation Code Description Data Natalie rce(s) Supporting Document(s) 4.050 THYROID STIMULATING HORMONE eC W1 ([facility]) ID Date Data Source LIPID PANEL (CARDIAC RISK) 02/28/2020 04:20:27 AM EDT eCW1 ( [facility]) Name Value Range Interpretation Code Description Data Natalie rce(s) Supporting Document(s) Cholesterol [Moles/volume] in Serum or Plasma 125 CHOLESTEROL LEVEL eCW1 ([facility]) Triglyceride [Mass/volume] in Serum or Plasma by calculation 111 TRIGLYCERIDES LEVEL eCW1 ([facility]) 71 NON-HDL-C eCW1 ([facility]) Cholesterol in LDL [Mass/volume] in Serum or Plasma by calculation 49 LDL CHOLESTEROL eCW1 ([facility]) Cholesterol in HDL [Moles/volume] in Serum or Plasma 54 HDL CHOLESTEROL eCW1 ([facility]) 2.314 CHOLESTEROL RISK RATIO eCW1 ([facility]) ID Date Data Source [id number] 02/28/2020 04:20:27 AM EDT eCW1 ([facility]) Name Value Range Interpretation Code Description Data Natalie rce(s) Supporting Document(s) Hemoglobin A1c/Hemoglobin.total in Blood 7.3 HEMOGLOBIN A1c eCW1 ([facility]) ID Date Data Source Comprehensive Metabolic Profile (CMP) 02/28/2020 04:20:27 AM EDT eCW1 ([facility]) Name Value Range Interpretation Code Description Data Natalie rce(s) Supporting Document(s) 111 GLUCOSE, FASTING eCW1 ([facility]) 11 BLOOD UREA NITROGEN eCW1 ([facility]) 0.78 CREATININE FOR GFR eCW1 ([facility]) > 60.0 GLOMERULAR FILTRATION RATE eCW 1 ([facility]) 4.5 POTASSIUM SERUM eCW1 ([facility]) 142 SODIUM LEVEL eCW1 ([facility]) 23 CARBON DIOXIDE LEVEL eCW1 ([facility]) 111 CHLORIDE LEVEL eCW1 ([facility]) 10.7 CALCIUM LEVEL eCW1 ([facility]) 31 ALT/SGPT eCW1 ([facility]) 29 AST/SGOT eCW1 ([facility]) 73 ALKALINE PHOSPHATASE eCW1 ([facility]) 6.8 TOTAL PROTEIN eCW1 ([facility]) 0.4 BILIRUBIN,TOTAL eCW1 ([facility]) 1.1 ALBUMIN/GLOBULIN RATIO eCW1 ([facility]) 3.6 ALBUMIN eCW1 ([facility]) ID Date Data Source CBC with Differential 02/28/2020 04:20:27 AM EDT eCW1 ([facility]) Name Value Range Interpretation Code Description Data Natalie rce(s) Supporting Document(s) 4.42 RED BLOOD COUNT eCW1 ([facility]) 6.8 WHITE BLOOD COUNT eCW1 ([facility]) 39.5 HEMATOCRIT eCW1 ([facility]) 12.3 HEMOGLOBIN eCW1 ([facility]) 89.4 MEAN CORPUSCULAR VOLUME eCW1 ( [facility]) 31.1 MEAN CORPUSCULAR HGB CONC eCW1 ([facility]) 12.9 RED CELL DISTRIBUTION WIDTH eC W1 ([facility]) 27.8 MEAN CORPUSCULAR HEMOGLOBIN eC W1 ([facility]) 32.2 LYMPH % eCW1 ([facility]) 203 PLATELET COUNT, AUTOMATED eCW1 ([facility]) 7.8 MONO % eCW1 ([facility]) 54.2 NEUTROPHILS % eCW1 ([facility]) 0.9 BASO % eCW1 ([facility]) 2.2 LYMPH # eCW1 ([facility]) 4.6 EOS % eCW1 ([facility]) 3.7 NEUTROPHILS # eCW1 ([facility]) 0.1 BASO # eCW1 ([facility]) 0.3 EOS # eCW1 ([facility]) 0.5 MONO # eCW1 ([facility]) Procedure Social History Code Duration Value Status Description Data Source(s ) Smoking 02/04/2021 12:00:00 AM EDT Former Smoker completed Former Smoker eCW1 ([facility]) Smoking 02/04/2021 12:00:00 AM EDT Former Smoker completed Former Smoker eCW1 ([facility]) Smoking 02/04/2021 12:00:00 AM EDT Former Smoker completed Former Smoker eCW1 ([facility]) Smoking 01/24/2021 08:52:29 AM EDT Ex-smoker (finding) complet ed Ex-smoker (finding) GERONIMO ([facility]mer Baker [facility]) Smoking 08/14/2020 12:00:00 AM EDT Former Smoker completed Former Smoker eCW1 ([facility]) Smoking 08/14/2020 12:00:00 AM EDT Former Smoker completed Former Smoker eCW1 ([facility]) Smoking 08/14/2020 12:00:00 AM EDT Former Smoker completed Former Smoker eCW1 ([facility]) Smoking 08/14/2020 12:00:00 AM EDT Former Smoker completed Former Smoker eCW1 ([facility]) Smoking 08/14/2020 12:00:00 AM EDT Former Smoker completed Former Smoker eCW1 ([facility]) Smoking 06/01/2020 12:00:00 AM EST Patient is a former smoker completed Patient is a former smoker [facility] ([facility]) Smoking 03/06/2020 12:00:00 AM EDT Former Smoker completed Former Smoker eCW1 ([facility]) Smoking 03/06/2020 12:00:00 AM EDT Former Smoker completed Former Smoker eCW1 ([facility]) Vital Signs ID Date Data Source UNK Name Value Range Interpretation Code Description Data Source(s) Diastolic blood pressure 100 mm[Hg] 100 mm[Hg] [facility] ([facility]) Body weight 173.00 [lb_av] 173.00 [lb_av] MEDEN T ([facility]) Body weight 78.473 kg 78.473 kg [facility] ([facility]) Body surface area Derived from formula 1.89 m2 1.89 m2 [facility] ([facility]) Systolic blood pressure 140 mm[Hg] 140 mm[Hg] [facility] Body height 66.5 [in_i] 66.5 [in_i] [facility] ([facility], ) 5'6.50" Body mass index (BMI) [Ratio] 27.5 kg/m2 27.5 k g/m2 [facility] ([facility], ) [place] body weight 130 [lb_av] 130 [lb_av] MEDEN T ([facility], ) Body weight 174 [lb_av] 174 [lb_av] eCW1 ([facility]) Body height 66 [in_i] 66 [in_i] eCW1 ([facility]) Body mass index (BMI) [Ratio] 28.08 kg/m2 28.08 kg/m2 eCW1 ([facility]) Heart rate 101 /min 101 /min eCW1 ([facility]) Respiratory rate 18 /min 18 /min eCW1 ([facility]) Body temperature 97.9 [degF] 97.9 [degF] eCW1 ( [facility]) Systolic blood pressure 162 mm[Hg] 162 mm[Hg] e CW1 ([facility]) Diastolic blood pressure 88 mm[Hg] 88 mm[Hg] eCW1 ([facility]) Body temperature 97.3 [degF] 97.3 [degF] MEDENT ([facility] ) Body height 66 [in_i] 66 [in_i] [facility] ([facility] ) 5'6" Body weight 178.25 [lb_av] 178.25 [lb_av] MEDEN T ([facility] ) Body mass index (BMI) [Ratio] 28.8 kg/m2 28.8 k g/m2 [facility] Body weight 175 [lb_av] 175 [lb_av] eCW1 ([facility]) Body height 66 [in_i] 66 [in_i] eCW1 ([facility]) Body mass index (BMI) [Ratio] 28.24 kg/m2 28.24 kg/m2 eCW1 ([facility]) Heart rate 114 /min 114 /min eCW1 ([facility]) Respiratory rate 18 /min 18 /min eCW1 ([facility]) Body temperature 97.3 [degF] 97.3 [degF] eCW1 ( [facility]) Systolic blood pressure 144 mm[Hg] 144 mm[Hg] e CW1 ([facility]) Diastolic blood pressure 76 mm[Hg] 76 mm[Hg] eCW1 ([facility]) Systolic blood pressure 140 mm[Hg] 140 mm[Hg] M EDENT ([facility], [facility]) Diastolic blood pressure 77 mm[Hg] 77 mm[Hg] MEDENT ([facility], [facility]) Heart rate 99 /min 99 /min MEDENT ([facility], [facility]) Respiratory rate 14 /min 14 /min [facility] ( [facility], [facility]) Oxygen saturation in Arterial blood by Pulse oximetry 96 % 96 % [facility] ([facility], [facility]) Body temperature 96.8 [degF] 96.8 [degF] [facility] ([facility], [facility]) Body weight 170.00 [lb_av] 170.00 [lb_av] MEDEN T ([facility], [facility]) Body height 66 [in_i] 66 [in_i] MEDENT ([facility], [facility]) 5'6" Body mass index (BMI) [Ratio] 27.4 kg/m2 27.4 k g/m2 MED[facility] ([facility], [facility]) Body weight 175.0 [lb_av] 175.0 [lb_av] eCW1 ([facility]) Body height 66 [in_i] 66 [in_i] eCW1 ([facility]) Body mass index (BMI) [Ratio] 28.24 kg/m2 28.24 kg/m2 eCW1 ([facility]) Heart rate 112 /min 112 /min eCW1 ([facility]) Respiratory rate 18 /min 18 /min eCW1 ([facility]) Body temperature 96.5 [degF] 96.5 [degF] eCW1 ( [facility]) Systolic blood pressure 122 mm[Hg] 122 mm[Hg] e CW1 ([facility]) Diastolic blood pressure 74 mm[Hg] 74 mm[Hg] eCW1 ([facility]) Diastolic blood pressure 86 mm[Hg] 86 mm[Hg] MEDENT ([facility], [facility]) Heart rate 84 /min 84 /min MEDENT ([facility], [facility]) Respiratory rate 18 /min 18 /min MEDENT ( [facility]) Oxygen saturation in Arterial blood by Pulse oximetry 98 % 98 % MEDENT ([facility]) Body temperature 96.7 [degF] 96.7 [degF] MEDENT ([facility], [facility]) Body weight 180.00 [lb_av] 180.00 [lb_av] MEDEN T ([facility]) Body mass index (BMI) [Ratio] 28.6 kg/m2 28.6 k g/m2 [facility] [facility] [place] Body height 66.5 [in_i] 66.5 [in_i] MEDENT ([facility], [facility]) 5'6.50" Systolic blood pressure 149 mm[Hg] 149 mm[Hg] M EDENT ([facility] [place]) Patient Treatment Plan of Care Planned Activity Planned Date Details Description Data Source (s) tramadol hydrochloride 50 MG Oral Tablet 02/05/2021 12:00:00 AM EDT eCW1 ([facility]) tramadol hydrochloride 50 MG Oral Tablet 02/05/2021 12:00:00 AM EDT eCW1 ([facility]) tramadol hydrochloride 50 MG Oral Tablet 02/05/2021 12:00:00 AM EDT eCW1 ([facility]) pantoprazole 40 MG Delayed Release Oral Tablet 01/24/2021 12:00:00 AM EDT eCW1 ([facility])
[2021-04-08] MEDS ORDERED: NYST50SS PO (08:38)
[2021-04-08] MEDS ORDERED: ACET-683 PO (08:38)
[2021-04-08] MEDS ORDERED: ACETAMINOPHEN 500 MG TAB PO ONE (09:55)
--- NOTE | 2021-04-08 10:21 | REP ---
INDICATION: fall COMPARISON: 09/14/2020 TECHNIQUE: Axial noncontrast images from the skull base to the thoracic inlet with coronal reformations. This CT examination was performed using the following dose reduction techniques: Automated exposure control, adjustment of mA and/or kv according to the patient's size, and use of iterative reconstruction technique. FINDINGS: Atrophy with periventricular leukomalacia and microvascular ischemic changes are appreciated. The ventricles and sulci are symmetric. Rain-white differentiation is maintained. There is no evidence for acute intracranial hemorrhage, mass/mass effect, pathology or infarction. No extra-axial fluid collection. Calvarium is intact. Paranasal sinuses and mastoid air cells are clear. IMPRESSION: Atrophy and microvascular ischemic changes. No acute intracranial hemorrhage, infarction, or mass/mass effect. <Electronically signed by Brian Mathews > 04/08/21 101
--- NOTE | 2021-04-08 10:25 | REP ---
INDICATION: fall COMPARISON: 09/14/2020 TECHNIQUE: Axial noncontrast images from the skull base to the thoracic inlet with coronal and sagittal re-formations This CT examination was performed using the following dose reduction techniques: Automated exposure control, adjustment of mA and/or kv according to the patient's size, and use of iterative reconstruction technique. FINDINGS: Advanced multilevel degenerative spondylosis is again noted and stable. Normal alignment and lordosis is maintained. Cervical vertebral bodies including transverse processes and spinous processes are intact and there is no evidence for acute fracture / compression injury or subluxation. Spinal canal is patent. Posterior elements are intact. Paravertebral soft tissues are normal. IMPRESSION: Stable advanced multilevel degenerative spondylosis. No evidence for acute pathology or trauma/injury. <Electronically signed by Brian Mathwes > 04/08/21 [id number]
--- OUTSIDE RECORDS SUMMARY | 2021-04-08 10:40 | CCD ---
Author Author [facility] Organization [facility] Address Unknown Phone Unavailable Care Team Providers Care Specialty Department Supervisor Name Role Phone GILMER CASTRO MD Unavailable [...] Carlton MD, FACS Unavailable Unavailable Hayes Baker, eLon Carlton MD, FACS Unavailable Unavailable Hayes Baker, [...] is protected by Article 27-F of the [facility] Public Health law. If you continue you may have access to information: Regarding HIV / AIDS; Provided by facilities licensed or operated by the [facility] Office of Mental Health; or Provided by the [facility] Office for People With Developmental Disabilities. If such information is present, then the following [facility] mandated warning applies: This information has been [...] law may result in a fine or snf sentence or both. A general authorization for the release of medical or other information is NOT sufficient authorization for further disc losure. Family History Family Member Name Family Member Gender Family Member Status Date o f Status Description Data Source(s) Unknown Unknown Problem MEDENT ([facility]) father Unknown Female Problem MEDENT ([facility]) Unknown Female Problem MED[facility] ([facility]) Unknown Female Problem MED[facility] ([facility]) Unknown Female Problem MED[facility] ([facility] Unknown Female Problem MED[facility] ([facility]) Unknown Female Problem MEDENT ([facility]) Unknown Unknown Problem MEDENT ([facility]) Encounters Encounter Providers Location Date Indications Data Source(s ) [place] [address] [facility] [address] 02/18/2021 12:00:00 AM EDT eCW1 ([facility]) Outpatient Attender: GILMER Morelos/Cheryl/Jones/Laura nicholson 02/13/2021 11:00:00 AM EDT [facility] ([facility]) [place] [address] [facility] [address] 02/05/2021 12:00:00 AM EDT eCW1 ([facility]) Office Visit, Est Pt., Level 4 PC [address] [place] [address] 02/04/2021 12:00:00 AM EDT eCW1 ([facility]) [place] [address] [facility] [address] 01/29/2021 12:00:00 AM EDT eCW1 ([facility]) Unknown [address] [facility] [address] 01/24/2021 12:00:00 AM EDT eCW1 ([facility]) Outpatient<td ID="encounterTypeDescripti onID0">2 Year Follow-Up</td><td>Gilmer Daly MD, FACS</td><td>Gilmer Daly MD [facility]</td><td>12/19/2020</td><td>2:24PM</td><td>3:41PM</td><td></td> Attender: Gilmer Baker MD, FACS Gilmer Daly MD [facility] 12/19/2020 02:24:00 PM EDT - 12/19/2020 03:41:00 PM EDT GERONIMO (Gilmer hutton MD [facility]) OFFICE OUTPATIENT VISIT 15 MINUTES Attender: Kisha HICKEY PA-C Physical Therapy 11/08/2020 10:45:00 AM EDT MEDENT ([facility]) Office Visit Attender: Kisha HICKEY PA-C Physical Therapy 10/17/2020 02:00:00 PM EDT MEDENT ([facility]) Unknown [address] [facility], [facility] [address] 10/03/2020 12:00:00 AM EDT eCW1 ([facility]) Office Visit Attender: Kisha HICKEY PA-C Physical Therapy 09/26/2020 01:30:00 PM EDT MEDENT ([facility]) Outpatient Attender: Kisha HICKEY PA-C Physical Therapy 09/17/2020 10:15:00 AM EDT MED[facility] ([facility]) Unknown [address] [facility] [place] [address] 08/21/2020 12:00:00 AM EDT eCW1 ([facility]) Office Visit, Est Pt., Level 4 PC [address] [place] [address] 08/14/2020 12:00:00 AM EDT eCW1 ([facility]) Outpatient Attender: Christy griffith 06/01/2020 04:25:00 PM EST MEDENT ([facility], [facility]) Office Visit, Est Pt., Level 2 FC [address] [place] [address] 03/06/2020 12:00:00 AM EDT eCW1 ([facility]) Outpatient [facility] [place] [address] 02/28/2020 12:00:00 AM EDT eCW1 ([facility]) Outpatient Attender: Christy Nava Prim gladis 02/24/2020 01:15:00 PM EDT MEDENT ([facility] Immunizations Vaccine Date Status Description Data Source(s) COVID-19 VACCINE Moderna 02/06/2021 12:00:00 AM EDT completed [facility] Vaccine Series Complete: YESThis Data wa s Submitted to [facility] Via [employer]. COVID-19 VACCINE Moderna 09/10/2020 12:00:00 AM EDT completed [facility] Vaccine Series Complete: YESThis Data wa s Submitted to [facility] [employer]. COVID-19 VACC,MRNA(MODERNA)/PF 09/10/2020 12:00:00 AM EDT completed [facility] COVID-19 VACCINE Moderna 08/10/2020 12:00:00 AM EDT completed [facility] Vaccine Series Complete: NOThis Data was Submitted to [facility] Via [employer]. COVID-19 VACCINE, MRNA-1273, LNP-S (MODERNA)/PF 08/10/2020 1 2:00:00 AM EDT completed [facility] COVID-19 dose #1 given elsewhere Unspecified 08/06/2020 09:4 5:00 AM EDT completed eCW1 ([facility]) COVID-19 dose #1 given elsewhere Unspecified 08/06/2020 09:4 5:00 AM EDT completed eCW1 ([facility]) COVID-19 dose #1 given elsewhere Unspecified 08/06/2020 09:4 5:00 AM EDT completed eCW1 ([facility]) COVID-19 dose #1 given elsewhere Unspecified 08/06/2020 09:4 5:00 AM EDT completed eCW1 ([facility]) COVID-19 dose #1 given elsewhere Unspecified 08/06/2020 09:4 5:00 AM EDT completed eCW1 ([facility]) COVID-19 dose #1 given elsewhere Unspecified 08/06/2020 09:4 5:00 AM EDT completed eCW1 ([facility]) COVID-19 dose #1 given elsewhere Unspecified 08/06/2020 09:4 5:00 AM EDT completed eCW1 ([facility]) COVID-19 dose #1 given elsewhere Unspecified 08/06/2020 09:4 5:00 AM EDT completed eCW1 ([facility]) influenza, recombinant, quadrIvalent,injectable, prese rvative free 02/28/2020 09:08:00 AM EDT completed eCW1 ([facility]) influenza, recombinant, quadrIvalent,injectable, prese rvative free 02/28/2020 09:08:00 AM EDT completed eCW1 ([facility]) influenza, recombinant, quadrIvalent,injectable, prese rvative free 02/28/2020 09:08:00 AM EDT completed eCW1 ([facility]) influenza, recombinant, quadrIvalent,injectable, prese rvative free 02/28/2020 09:08:00 AM EDT completed eCW1 ([facility]) influenza, recombinant, quadrIvalent,injectable, prese rvative free 02/28/2020 09:08:00 AM EDT completed eCW1 ([facility]) influenza, recombinant, quadrIvalent,injectable, prese rvative free 02/28/2020 09:08:00 AM EDT completed eCW1 ([facility]) influenza, recombinant, quadrIvalent,injectable, prese rvative free 02/28/2020 09:08:00 AM EDT completed eCW1 ([facility]) influenza, recombinant, quadrIvalent,injectable, prese rvative free 02/28/2020 09:08:00 AM EDT completed eCW1 ([facility]) influenza, recombinant, quadrIvalent,injectable, prese rvative free 02/28/2020 09:08:00 AM EDT completed eCW1 ([facility]) influenza, recombinant, quadrIvalent,injectable, prese rvative free 02/28/2020 09:08:00 AM EDT completed eCW1 ([facility]) Medications Medication Brand Name Start Date Product [...] {tablet_as_needed} active traMADol HCl 50 MG eCW1 ([facility]) 50 mg 02/05/2021 12:00:00 AM EDT tablet [...] {tablet_as_needed} active traMADol HCl 50 MG eCW1 ([facility]) tramadol hydrochloride 50 MG Oral Tablet traMADol HCl 50 MG traMADol HCl 50 MG 02/05/2021 12:00:00 AM EDT 1.0 {tablet_as_needed} active traMADol HCl 50 MG eCW1 ([facility]) 100 mg/mL 01/24/2021 12:00:00 AM EDT suspension 1260 TAKE 10ML BY MOUTH FOUR TIMES A DAY BEFORE MEALS AND AT BEDTIME TAKE 10ML BY MOUTH FOUR TIMES A DAY BEFORE MEALS AND AT BEDTIME SOLD: 01/24/2021 [facility] Sucralfate 100 MG/ML Oral Suspension Sucralfate 1 GM/10ML Hurt cralfate 1 GM/10ML 01/24/2021 12:00:00 AM EDT 10.0 {ml_on_an_empty_stomach} active Sucralfate 1 GM/10ML eCW1 ([facility]) Sucralfate 100 MG/ML Oral Suspension Sucralfate 1 GM/10ML Hurt cralfate 1 GM/10ML 01/24/2021 12:00:00 AM EDT 10.0 {ml_on_an_empty_stomach} active Sucralfate 1 GM/10ML eCW1 ([facility]) pantoprazole 40 MG Delayed Release Oral Tablet Pantopr azole Sodium 40 MG Pantoprazole Sodium 40 MG 01/24/2021 12:00:00 AM EDT 1.0 {tablet} active Pantoprazole Sodium 40 MG eCW1 ( [facility]) Sucralfate 100 MG/ML Oral Suspension Sucralfate 1 GM/10ML Hurt cralfate 1 GM/10ML 01/24/2021 12:00:00 AM EDT 10.0 {ml_on_an_empty_stomach} active Sucralfate 1 GM/10ML eCW1 ([facility]) pantoprazole 40 MG Delayed Release Oral Tablet Pantopr azole Sodium 40 MG Pantoprazole Sodium 40 MG 01/24/2021 12:00:00 AM EDT 1.0 {tablet} active Pantoprazole Sodium 40 MG eCW1 ( [facility]) pantoprazole 40 MG Delayed Release Oral Tablet Pantopr azole Sodium 40 MG Pantoprazole Sodium 40 MG 01/24/2021 12:00:00 AM EDT 1.0 {tablet} active Pantoprazole Sodium 40 MG eCW1 ( [facility]) pantoprazole 40 MG Delayed Release Oral Tablet Pantopr azole Sodium 40 MG Pantoprazole Sodium 40 MG 01/24/2021 12:00:00 AM EDT 1.0 {tablet} active Pantoprazole Sodium 40 MG eCW1 ( [facility]) pantoprazole 40 MG Delayed Release Oral Tablet PANTOPRAZOLE SODIUM 01/24/2021 12:00:00 AM EDT tablet,delayed release (DR/EC) 30 T ALEXANDRO ONE TABLET BY MOUTH EVERY DAY TAKE ONE TABLET BY MOUTH EVERY DAY SOLD: 01/24/2021 [facility] Sucralfate 100 MG/ML Oral Suspension Sucralfate 1 GM/10ML Hurt cralfate 1 GM/10ML 01/24/2021 12:00:00 AM EDT 10.0 {ml_on_an_empty_stomach} active Sucralfate 1 GM/10ML eCW1 ([facility]) 100 mg 12/24/2020 12:00:00 AM EDT tablet 90 TAKE ONE TABLET BY MOUTH EVERY DAY TAKE ONE TABLET BY MOUTH EVERY DAY SOLD: 12/25/2020 [facility] 33 gauge 12/06/2020 12:00:00 AM EDT misc 100 TEST THREE TIMES A DAY DIRECTED TEST THREE TIMES A DAY DIRECTED SOLD: 12/19/2020 [facility] BLOOD SUGAR DIAGNOSTIC 11/19/2020 12:00:00 AM EDT [...] BEFORE BED UNDER THE SKIN SOLD: 11/14/2020 [facility] 33 gauge 10/03/2020 12:00:00 AM EDT [...] Information Wellcare Advantage Plan Medigap Part B [id number] Self Todays Options Medigap Part B [id number] Self Blue Shield [facility] Advantage Medigap Part B [id number] Self [id number] Todays Options Commercial [id number] Self AETNA MEDICARE O MEBTDPML [id number] S MEBTD PML WELLCARE O [id number] S [id number] WELLCARE [id number] SP [id number] TODAYS OPTIONS [id number] SP [id number] [facility] Health Plans [facility] Commercial [id number] Self [id number] TODA[place] [id number] [place] [id number] TODAYS OPTIONS/URUGUAYAN O [id number] S [id number] ANSI-Medicare Part B [id number] ANSI-Medicare Part B [id number] ANSI-Medicare Part B [id number] ANSI-Medicare Part B [id number] Todays Options Commercial [id number] Self [id number] ANSI-Medicare Part B [id number] ANSI-Medicare Part B [id number] ANSI-Medicare Part B [id number] ANSI-Medicare Part B [id number] ANSI-Medicare Part B [id number] ANSI-Medicare Part B [id number] ANSI-Medicare Part B [id number] ANSI-Medicare Part B [id number] Today's Options Medicare Commercial [id number] Self [id number] Today's Options Medicare Commercial [id number] Self [id number] TODAYS OPTIONS/URUGUAYAN O [id number] S [id number] Today's Option Medicare Commercial [id number] Self [id number] Today's Options Medicare Commercial [id number] Self [id number] MEDICARE BLUE PPO 306 [id number] SP [id number] Today's Options Medicare Commercial [id number] Self [id number] Medicaid [place] Medigap Part B [id number] Self TODAYS OPTIONS [id number] SP [id number] Today's Option Medicare Commercial [id number] Self BS Medicare Blue Ppo/Hmo Commercial [id number] Self EXCELLUS BCBS P [id number] S [id number] [id number] BLUE CROSS BLUE SHIELD-O/P [id number] 18 [id number] BLUE CROSS BLUE SHIELD-CLINIC [id number] 18 [id number] AETNA MEDICARE [id number] SP [id number] AETNA MEDICARE [id number] SP [id number] AETNA MEDICARE [id number] SP MEBTD PML SELF PAY ONLY Problems, Conditions, and Diagnoses Code Display Name Description Problem Type Effective Dates Data Source(s) K29.80 00236177 Duodenitis Problem 02/04/2021 12:00:00 AM ED T eCW1 ([facility]) Surgeries/Procedures Procedure Description Date Indications Data Source(s) OFFICE OUTPATIENT NEW 45 MINUTES 02/13/2021 12:00:00 A M EDT MEDENT ([facility]) RADEX WRIST 2 VIEWS [...] IM (Influenza) 02/28/2020 12:00:00 AM EDT eCW1 ([facility]) Results ID Date Data Source [id number] 02/19/2021 08:53:[address] [facility] ([facility]) Name Value Range Interpretation Code Description Data Natalie rce(s) Supporting Document(s) Creatinine For GFR 0.94 mg/dL 0.55-1.30 Normal (applies to non -numeric results) [facility] ([facility]) Glomerular Filtration Rate Laboratory test result Normal (applies to non- numeric results) [facility]) <content>Units are mL/min/1.73 m2</content>
<content></content>
<content>Chronic Kidney Disease Staging per NKF:</content>
<content></content>
<content>Stage I & II GFR >=60 Normal to Mildly Decreased</content>
<content>Stage III GFR 30- 59 Moderately Decreased</content>
<content>Stage IV GFR 15-29 Severely Decreased</content>
<content>Stage V GFR <15 Very Little GFR Left</content>
<content>ESRD GFR <15 on BEHAVIORAL HEALTH CARE MANAGER</content>
<content></content> ID Date Data Source [id number] 02/19/2021 08:53:[address] [facility] ([facility]) Name Value Range Interpretation Code Description Data Natalie rce(s) Supporting Document(s) Urea nitrogen [Mass/volume] in Serum or Plasma 17 mg/dL 7 -18 Normal (applies to non-numeric results) [facility] ([facility]) ID Date Data Source [id number] 02/19/2021 08:53:00 AM EDT [facility]) Name Value Range Interpretation Code Description Data Natalie rce(s) Supporting Document(s) Ast/Sgot 21 U/L 7-37 Normal (applies to non-numeric resul ts) [facility]) Alkaline Phosphatase 74 U/L 45-117 Normal (applies to non-num reed results) [facility] ([facility]) Alt/SGPT 28 U/L 12-78 Normal (applies to non-numeric resul ts) [facility] ([facility]) Bilirubin,Direct 0.2 mg/dL 0.0-0.2 Normal (applies to non-numeric results) [facility] ([facility]) Bilirubin,Total 0.4 mg/dL 0.2-1.0 Normal (applies to non-numeric results) [facility] ([facility]) Total Protein 6.8 GM/DL 6.4-8.2 Normal (applies to non-numeric re sults) [facility] ([facility]) Albumin 3.6 GM/DL 3.2-5.2 Normal (applies to non-numeric resul ts) [facility] ([facility]) Albumin/Globulin Ratio 1.1 1.2-2.[address] [facility] ([facility]) 02/21/21 (Thr Feb 21) 03:37 PM GILMER FERRER Unremarkable/normal ID Date Data Source [id number] 02/19/2021 08:53:[address] [facility] ([facility]) Name Value Range Interpretation Code Description Data Natalie rce(s) Supporting Document(s) IgG subclass 4 [Mass/volume] in Serum 13 mg/dL 2-96 Normal (applies to non- numeric results) [facility]) Performed at: [address] [id number] Insurance Risk Surveyor: Lillian Aguilar MD, Phone: [phone] Cancer Ag 19-9 [Units/volume] in Serum or Plasma 10.4 U/ML Normal (applies to non-numeric results) [facility] ([facility]) THE CA 19-9 ASSAY IS PERFORMED ON THE [employer] BY CHEMILUMINESCENCE AND SHOULD NOT BE COMPARED INTERCHANGEABLY WITH OTHER METHODS. IT SHOULD NOT BE USED ALONE A SCREENING TEST OR DIAGNOSIS FOR THE PRESENCE OR ABSENCE OF MALIGNANT DISEASE. PREDICTIONS OF DISEASE RECURRENCE SHOULD NOT BE BASED SOLELY ON VALUES OBTAINED FROM SERIAL PATIENT SERUM VALUES. ID Date Data Source [id number] 02/19/2021 08:53:00 AM EDT MEDENT ([facility] ) Name Value Range Interpretation Code Description Data Natalie rce(s) Supporting Document(s) Amylase [Enzymatic activity/volume] in Serum or Plasma 42 U/L 25-115 Normal (applies to non-numeric results) MEDENT ([facility] ) Lipoprotein lipase [Enzymatic activity/volume] in Serum or P lasma 148 U/L 73-393 Normal (applies to non-numeric results) MED[facility] ([facility], ) ID Date Data Source [id number] 01/24/2021 01:11:00 AM EDT [facility] Name Value Range Interpretation Code Description Data Natalie rce(s) Supporting Document(s) SARS coronavirus 2 RNA [Presence] in Res piratory specimen by SUSAN with probe detection NEGATIVE [facility] This lab was ordered by [facility] a nd reported by [facility]. ID Date Data Source [id number] 08/10/2020 12:00:00 AM EDT [facility] Name Value Range Interpretation Code Description Data Natalie rce(s) Supporting Document(s) SARS-CoV2 Rapid Antigen Negative [facility] This lab was reported by [facility]. ID Date Data Source [id number] 06/01/2020 12:00:00 AM EST [facility] Name Value Range Interpretation Code Description Data Natalie rce(s) Supporting Document(s) SARS-CoV2 Rapid Antigen Positive [facility] This lab was reported by [facility]. ID Date Data Source [id number] 05/22/2020 12:00:00 AM EST [facility] Name Value Range Interpretation Code Description Data Natalie rce(s) Supporting Document(s) SARS coronavirus 2 RNA [facility] This lab was ordered by [facility] and rep orted by [facility]. ID Date Data Source TSH 02/28/2020 04:20:27 AM EDT eCW1 ([facility]) Name Value Range Interpretation Code Description Data Natalie rce(s) Supporting Document(s) 4.050 THYROID STIMULATING HORMONE eC W1 ([facility]) ID Date Data Source LIPID PANEL (CARDIAC RISK) 02/28/2020 04:20:27 AM EDT eCW1 ( [facility]) Name Value Range Interpretation Code Description Data Natalie rce(s) Supporting Document(s) Cholesterol [Moles/volume] in Serum or Plasma 125 CHOLESTEROL LEVEL eCW1 ([facility]) Triglyceride [Mass/volume] in Serum or Plasma by calculation 111 TRIGLYCERIDES LEVEL eCW1 ([facility]) 71 NON-HDL-C eCW1 ([facility]) Cholesterol in LDL [Mass/volume] in Serum or Plasma by calculation 49 LDL CHOLESTEROL eCW1 ([facility]) Cholesterol in HDL [Moles/volume] in Serum or Plasma 54 HDL CHOLESTEROL eCW1 ([facility]) 2.314 CHOLESTEROL RISK RATIO eCW1 ([facility]) ID Date Data Source [id number] 02/28/2020 04:20:27 AM EDT eCW1 ([facility]) Name Value Range Interpretation Code Description Data Natalie rce(s) Supporting Document(s) Hemoglobin A1c/Hemoglobin.total in Blood 7.3 HEMOGLOBIN A1c eCW1 ([facility]) ID Date Data Source Comprehensive Metabolic Profile (CMP) 02/28/2020 04:20:27 AM EDT eCW1 ([facility]) Name Value Range Interpretation Code Description Data Natalie rce(s) Supporting Document(s) 111 GLUCOSE, FASTING eCW1 ([facility]) 11 BLOOD UREA NITROGEN eCW1 ([facility]) 0.78 CREATININE FOR GFR eCW1 ([facility]) > 60.0 GLOMERULAR FILTRATION RATE eCW 1 ([facility]) 4.5 POTASSIUM SERUM eCW1 ([facility]) 142 SODIUM LEVEL eCW1 ([facility] hospital) 23 CARBON DIOXIDE LEVEL eCW1 ([facility]) 111 CHLORIDE LEVEL eCW1 ([facility]) 10.7 CALCIUM LEVEL eCW1 ([facility]) 31 ALT/SGPT eCW1 ([facility]) 29 AST/SGOT eCW1 ([facility]) 73 ALKALINE PHOSPHATASE eCW1 ([facility]) 6.8 TOTAL PROTEIN eCW1 ([facility]) 0.4 BILIRUBIN,TOTAL eCW1 ([facility]) 1.1 ALBUMIN/GLOBULIN RATIO eCW1 ([facility]) 3.6 ALBUMIN eCW1 ([facility]) ID Date Data Source CBC with Differential 02/28/2020 04:20:27 AM EDT eCW1 ([facility]) Name Value Range Interpretation Code Description Data Natalie rce(s) Supporting Document(s) 4.42 RED BLOOD COUNT eCW1 ([facility]) 6.8 WHITE BLOOD COUNT eCW1 ([facility]) 39.5 HEMATOCRIT eCW1 ([facility]) 12.3 HEMOGLOBIN eCW1 ([facility]) 89.4 MEAN CORPUSCULAR VOLUME eCW1 ( [facility]) 31.1 MEAN CORPUSCULAR HGB CONC eCW1 ([facility]) 12.9 RED CELL DISTRIBUTION WIDTH eC W1 ([facility]) 27.8 MEAN CORPUSCULAR HEMOGLOBIN eC W1 ([facility]) 32.2 LYMPH % eCW1 ([facility]) 203 PLATELET COUNT, AUTOMATED eCW1 ([facility]) 7.8 MONO % eCW1 ([facility]) 54.2 NEUTROPHILS % eCW1 ([facility]) 0.9 BASO % eCW1 ([facility]) 2.2 LYMPH # eCW1 ([facility]) 4.6 EOS % eCW1 ([facility]) 3.7 NEUTROPHILS # eCW1 ([facility]) 0.1 BASO # eCW1 ([facility]) 0.3 EOS # eCW1 ([facility]) 0.5 MONO # eCW1 ([facility]) Procedure Social History Code Duration Value Status Description Data Source(s ) Smoking 02/04/2021 12:00:00 AM EDT Former Smoker completed Former Smoker eCW1 ([facility]) Smoking 02/04/2021 12:00:00 AM EDT Former Smoker completed Former Smoker eCW1 ([facility]) Smoking 02/04/2021 12:00:00 AM EDT Former Smoker completed Former Smoker eCW1 ([facility]) Smoking 01/24/2021 08:52:29 AM EDT Ex-smoker (finding) complet ed Ex-smoker (finding) GERONIMO (Gilmer Baker MD [facility]) Smoking 08/14/2020 12:00:00 AM EDT Former Smoker completed Former Smoker eCW1 ([facility]) Smoking 08/14/2020 12:00:00 AM EDT Former Smoker completed Former Smoker eCW1 ([facility]) Smoking 08/14/2020 12:00:00 AM EDT Former Smoker completed Former Smoker eCW1 ([facility]) Smoking 08/14/2020 12:00:00 AM EDT Former Smoker completed Former Smoker eCW1 ([facility]) Smoking 08/14/2020 12:00:00 AM EDT Former Smoker completed Former Smoker eCW1 ([facility]) Smoking 06/01/2020 12:00:00 AM EST Patient is a former smoker completed Patient is a former smoker MEDENT ([facility]) Smoking 03/06/2020 12:00:00 AM EDT Former Smoker completed Former Smoker eCW1 ([facility]) Smoking 03/06/2020 12:00:00 AM EDT Former Smoker completed Former Smoker eCW1 ([facility]) Vital Signs ID Date Data Source UNK Name Value Range Interpretation Code Description Data Source(s) Diastolic blood pressure 100 mm[Hg] 100 mm[Hg] [facility] ([facility]) Body weight 173.00 [lb_av] 173.00 [lb_av] MEDEN T ([facility]) Body weight 78.[address] [facility] ([facility]) Body surface area Derived from formula 1.[address] [facility] ([facility]) Systolic blood pressure 140 mm[Hg] 140 mm[Hg] [facility] Body height 66.5 [in_i] 66.5 [in_i] [facility] ([facility], ) 5'6.50" Body mass index (BMI) [Ratio] 27.5 kg/m2 27.5 k g/m2 MEDENT ([facility], ) [place] body weight 130 [lb_av] 130 [lb_av] MEDEN T ([facility], ) Body weight 174 [lb_av] 174 [lb_av] eCW1 ([facility]) Body height 66 [in_i] 66 [in_i] eCW1 ([facility]) Body mass index (BMI) [Ratio] 28.08 kg/m2 28.08 kg/m2 eCW1 ([facility]) Heart rate 101 /min 101 /min eCW1 ([facility]) Respiratory rate 18 /min 18 /min eCW1 ([facility]) Body temperature 97.9 [degF] 97.9 [degF] eCW1 ( [facility]) Systolic blood pressure 162 mm[Hg] 162 mm[Hg] e CW1 ([facility]) Diastolic blood pressure 88 mm[Hg] 88 mm[Hg] eCW1 ([facility]) Body temperature 97.3 [degF] 97.3 [degF] MEDENT ([facility] ) Body height 66 [in_i] 66 [in_i] MEDENT ([facility] ) 5'6" Body weight 178.25 [lb_av] 178.25 [lb_av] MEDEN T ([facility] ) Body mass index (BMI) [Ratio] 28.8 kg/m2 28.8 k g/m2 [facility] Body weight 175 [lb_av] 175 [lb_av] eCW1 ([facility]) Body height 66 [in_i] 66 [in_i] eCW1 ([facility]) Body mass index (BMI) [Ratio] 28.24 kg/m2 28.24 kg/m2 eCW1 ([facility]) Heart rate 114 /min 114 /min eCW1 ([facility]) Respiratory rate 18 /min 18 /min eCW1 ([facility]) Body temperature 97.3 [degF] 97.3 [degF] eCW1 ( [facility]) Systolic blood pressure 144 mm[Hg] 144 mm[Hg] e CW1 ([facility]) Diastolic blood pressure 76 mm[Hg] 76 mm[Hg] eCW1 ([facility]) Systolic blood pressure 140 mm[Hg] 140 mm[Hg] M EDENT ([facility]) Diastolic blood pressure 77 mm[Hg] 77 mm[Hg] MEDENT ([facility], [facility]) Heart rate 99 /min 99 /min MEDENT ([facility], [facility]) Respiratory rate 14 /min 14 /min MEDENT ( [facility], [facility]) Oxygen saturation in Arterial blood by Pulse oximetry 96 % 96 % MEDENT ([facility], [facility]) Body temperature 96.8 [degF] 96.8 [degF] MEDENT ([facility], [facility]) Body weight 170.00 [lb_av] 170.00 [lb_av] MEDEN T ([facility], [facility]) Body height 66 [in_i] 66 [in_i] MEDENT ([facility], [facility]) 5'6" Body mass index (BMI) [Ratio] 27.4 kg/m2 27.4 k g/m2 MEDENT ([facility], [facility]) Body weight 175.0 [lb_av] 175.0 [lb_av] eCW1 ([facility]) Body height 66 [in_i] 66 [in_i] eCW1 ([facility]) Body mass index (BMI) [Ratio] 28.24 kg/m2 28.24 kg/m2 eCW1 ([facility]) Heart rate 112 /min 112 /min eCW1 ([facility]) Respiratory rate 18 /min 18 /min eCW1 ([facility]) Body temperature 96.5 [degF] 96.5 [degF] eCW1 ( [facility]) Systolic blood pressure 122 mm[Hg] 122 mm[Hg] e CW1 ([facility]) Diastolic blood pressure 74 mm[Hg] 74 mm[Hg] eCW1 ([facility]) Diastolic blood pressure 86 mm[Hg] 86 mm[Hg] MEDENT ([facility], [facility]) Heart rate 84 /min 84 /min MEDENT ([facility], [facility]) Respiratory rate 18 /min 18 /min MEDENT ( [facility]) Oxygen saturation in Arterial blood by Pulse oximetry 98 % 98 % MEDENT ([facility]) Body temperature 96.7 [degF] 96.7 [degF] MEDENT ([facility], [facility]) Body weight 180.00 [lb_av] 180.00 [lb_av] MEDEN T ([facility]) Body mass index (BMI) [Ratio] 28.6 kg/m2 28.6 k g/m2 [facility] Body height 66.5 [in_i] 66.5 [in_i] MEDENT ([facility]) 5'6.50" Systolic blood pressure 149 mm[Hg] 149 mm[Hg] M EDENT ([facility]) Patient Treatment Plan of Care Planned Activity Planned Date Details Description Data Source (s) tramadol hydrochloride 50 MG Oral Tablet 02/05/2021 12:00:00 AM EDT eCW1 ([facility]) tramadol hydrochloride 50 MG Oral Tablet 02/05/2021 12:00:00 AM EDT eCW1 ([facility]) tramadol hydrochloride 50 MG Oral Tablet 02/05/2021 12:00:00 AM EDT eCW1 ([facility]) pantoprazole 40 MG Delayed Release Oral Tablet 01/24/2021 12:00:00 AM EDT eCW1 ([facility])
--- NOTE | 2021-04-08 10:57 | REP ---
INDICATION: fall COMPARISON: 01/24/2021 TECHNIQUE: PA and lateral. FINDINGS: The mediastinum and cardiac silhouette are normal. The lung hart are clear and without acute consolidation, effusion, or pneumothorax. The skeletal structures are intact and normal. Evidence for prior left axillary node dissection again noted. IMPRESSION: No acute cardiopulmonary process. <Electronically signed by Brian Mathews > 04/08/21 [id number]
--- NOTE | 2021-04-08 10:58 | REP ---
INDICATION: fall COMPARISON: None. TECHNIQUE: Internal rotation, external rotation, and Y view. FINDINGS: Age-related degenerative changes are appreciated. The subacromial space is normal. There is no evidence for acute fracture or dislocation. IMPRESSION: No evidence for acute fracture or dislocation. <Electronically signed by Brian Mathews > 04/08/21 1055
[2021-04-08 11:37] VITALS: BP 168/82
== END 2021-04-08 11:43 | disposition home or self-care (01) ==
LOC: M ED 08:22
DX: S16.1XXA Strain of muscle, fascia and tendon at neck level, initial encounter (principal); S43.401A Unspecified sprain of right shoulder joint, initial encounter; S40.011A Contusion of right shoulder, initial encounter; I67.9 Cerebrovascular disease, unspecified; M47.812 Spondylosis without myelopathy or radiculopathy, cervical region; W19.XXXA Unspecified fall, initial encounter; Y92.099 Unspecified place in other non-institutional residence as the place of occurrence of the external cause; Y93.01 Activity, walking, marching and hiking; Y99.9 Unspecified external cause status; E11.9 Type 2 diabetes mellitus without complications; I10 Essential (primary) hypertension; E03.9 Hypothyroidism, unspecified; E78.5 Hyperlipidemia, unspecified; M54.50 Low back pain, unspecified; K21.9 Gastro-esophageal reflux disease without esophagitis; Z87.442 Personal history of urinary calculi; Z87.440 Personal history of urinary (tract) infections; Z85.3 Personal history of malignant neoplasm of breast; Z79.4 Long term (current) use of insulin; Z79.899 Other long term (current) drug therapy

== ENCOUNTER → 2021-04-22 | Outpatient (REF) | payer MEDICARE ==
[~2021-04-22] MED LIST changes: -FOSI10TA4 PO; +FOSI10TA44 PO; +LEVE1INJ5 SC; +LEVO50TA5 PO; +NAPR-837 PO; +NYST50SS PO; +SUCR1ORA2 PO; +TRAM50TA2 PO
[2021-04-22 13:39] LABS: BILIRUBIN,TOTAL 0.4 MG/DL (0.2-1.0); CALCIUM LEVEL 10.2 MG/DL (8.8-10.2); CREATININE FOR GFR 1.23 MG/DL (0.55-1.30); GLOMERULAR FILTRATION RATE 44.4 (>32); POTASSIUM SERUM 5.6 MEQ/L (3.5-5.1)
[2021-04-22 13:40] LABS: ALBUMIN 3.5 GM/DL (3.2-5.2); CHOLESTEROL RISK RATIO 2.612 (<5); THYROID STIMULATING HORMONE 2.98 uIU/ML (0.358-3.740); TOTAL PROTEIN 6.9 GM/DL (6.4-8.2)
[2021-04-22 14:01] LABS: HEMOGLOBIN A1c 8.3 %
== END ==
LOC: M SFHCADAM 10:17
PROVIDERS: ATTEND Physician Assistant
DX: E11.42 Type 2 diabetes mellitus with diabetic polyneuropathy (principal); I10 Essential (primary) hypertension; E03.9 Hypothyroidism, unspecified; K21.9 Gastro-esophageal reflux disease without esophagitis; E55.9 Vitamin D deficiency, unspecified; E78.2 Mixed hyperlipidemia; R10.11 Right upper quadrant pain

== ENCOUNTER → 2021-04-25 | Outpatient (CLI) | payer MEDICARE | LOC: M LABSMTC 10:38 | PROVIDERS: ATTEND Anesthesiology | DX: Z01.812 Encounter for preprocedural laboratory examination (principal); Z20.822 Contact with and (suspected) exposure to COVID-19 ==

== ENCOUNTER 2021-04-30 10:36 | Day surgery (SDC) | payer MEDICARE ==
[~2021-04-30] VITALS: Ht 167.6 cm; Wt 79.8 kg
[~2021-04-30 10:36] MED LIST changes: +FOSI10TA4 PO; -FOSI10TA44 PO; -NAPR-837 PO; +NS 1,000 ML IV ONE
--- OUTSIDE RECORDS SUMMARY | 2021-04-30 10:43 | CCD ---
Author Author [facility] Organization [facility] Address Unknown Phone Unavailable Care Team Providers Care Behavior Specialist Name Role Phone Cherise Kunz Unavailable PROBLEMS Type Condition ICD9-CM Code [id number] Code Onset Dates Condition S tatus W/U Status Risk SNOMED Code Notes Problem Essential (primary) hypertension I10 Active conf irmed 80990546 Problem Hypothyroidism, unspecified E03.9 Active confirmed 33104247 Problem Vitamin D deficiency E55.9 Active confirmed 65210990 Problem Mixed hyperlipidemia E78.2 Active confirmed 587058418 Problem Gastroesophageal reflux disease without esophagitis K21.9 Active confirmed 998750059 Problem Duodenitis K29.80 Active confirmed 24763231 Problem Type 2 diabetes mellitus with diabetic polyneuropathy E11.42 Active confirmed 90162071 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 Active conf irmed 166304465 Problem History of left mastectomy Z90.12 Active confirmed 557978349 Problem Personal history of breast cancer Z85.3 Active confirmed 411837058 ALLERGIES No Known Allergies ENCOUNTERS from 1935 to 2021 Encounter Location Date Provider Diagnosis [id number] [place] [address] Mar, Cherise Kunz Type 2 diabetes mellitus with diabetic p olyneuropathy E11.42 ; Strain of right shoulder, initial encounter S46.911A ; Essential (primary) hypertension I10 ; Hypothyroidism, unspecified E03.9 ; Gastroesophageal reflux disease without esophagitis K21.9 ; Vitamin D deficiency E55.9 ; Mixed hyperlipidemia E78.2 and Right upper quadrant pain R10.11 IMMUNIZATIONS Vaccine Route Administration Date Status COVID-19 dose #1 given elsewhere Unspecified Unknown Mar ch 15, 2021 Administered Influenza 18 yrs & older [place] [...] Education Language: Question Answer Notes Languages spoken: German Congregation: Question Answer Notes Congregation 99 Other Drug and Alcohol Question Answer [...] REASON FOR REFERRAL No Information VITAL SIGNS Weight 176 lbs Mar, Weight-kg 79.83 kg Mar, Height 66 in Mar, BMI 28.40 kg/m2 Mar, Heart Rate 110 /min Mar, Respiratory Rate 18 /min Mar, Temperature 97.2 degrees Fahrenheit Mar, Oximetry 98 Mar, Blood pressure systolic 148 mm Hg Mar, Blood pressure diastolic 88 mm Hg Mar, MEDICATIONS Medication SIG (Take, Route, Frequency, Duration) Notes Start Da te End Date Status OneTouch Verio - TEST TWO TIMES A DAY for 50 Active Levothyroxine Sodium 50 MCG 1 tablet in the morning on an empty stomach orally Daily for 90 Active One Touch Ultra 2 Lancet _ as directed DX:E11.9 three times ashutosh y for 30 days September, Active metFORMIN HCl 1000 MG 1 tablet with meals Orally Twice a day Active Sucralfate 1 GM/10ML 10 ml on an empty stomach Orally Twice a day for 30 day(s) new on discharge 01/24/21 Jan, Active Fosinopril Sodium 10 MG 1 tablet Orally Once a day Active Anastrozole 1 MG 1 tablet Orally Once a day for 90 Active Acetaminophen 500 MG 1 tab Orally twice daily PRN Dec, Active Nystatin 990116 UNIT/ML 4 ml Mouth/Throat swish and swallow Four times a day for 14 Active Drisdol 61612 UNIT 1 capsule Orally once weekly for 90 Active Januvia 100 MG 1 tablet Orally Once a day Active Pantoprazole Sodium 40 MG 1 tablet Orally Once a day for 30 day(s) new on discharge 01/24/21 Jan, Active Gabapentin 100 MG 1 capsule Orally Twice a day Active Levemir FlexTouch 100 UNIT/ML INJECT 46 UNITS BEFORE BED UND ER THE SKIN for 32 Active traMADol HCl 50 MG 1 tablet as needed Orally Twice a day 1 Jan, Active Blood Glucose Monitor System w/Device as directed E11.42 daily f or 999 days Mar, Active OneTouch Delica Plus [id number] - 1 strip subcutaneousl y three times daily for 90 day(s) Active Simvastatin 40 MG 1 tablet in the evening Orally Once a day for 90 Active Unifine Pentips Plus 31G X 6 MM USE AT BEDTIME DIRECTED for 90 Active PROCEDURES No Information RESULTS No Results REASON FOR VISIT [facility] ER F/U fall with shoulder neck sprain, pt. right shoulder is really botherin g her today, 9.10/01 states pt. pt. also has a bump on her neck MEDICAL (GENERAL) HISTORY Type Description Date Medical [...] History left arm fracture @ [facility] 12/28/15 Hospitalization History L breast mastectomy 11/02 Hospitalization History lap ru 05/04 Hospitalization History 5 vaginal deliveries Hospitalization History pancreatitis- [facility] 12/2020 Goals Section No Information Health Concerns No Information MEDICAL EQUIPMENT No Information MENTAL STATUS No Information FUNCTIONAL STATUS No Information ASSESSMENTS Encounter Date Diagnosis Assessment Notes Treatment Notes Treatm ent Clinical Notes Mar, Type 2 diabetes mellitus wit h diabetic polyneuropathy (ICD-10 - E11.42) Mar, Strain of right shoulder, initial encoun ter (ICD-10 - S46.911A) Continue acetaminophen 500 mg 2 tabs 4 times a day max, continue tramadol 50 mg 1 tab at bedtime, and may add 1 additional gabapentin during the middle of the day. We agreed that she should see an orthopedist, and I advised them to use the walk-in clinic at the [facility] so that she can be seen today Mar, Essential (primary) hypertension (ICD-10 - I10) Mar, Hypothyroidism, unspecified (ICD-10 - E03.9) Mar, Gastroesophageal reflux dise ase without esophagitis (ICD-10 - K21.9) Mar, Vitamin D deficiency (ICD-10 - E55.9) Mar, Mixed hyperlipidemia (ICD-10 - E78.2) Mar, Right upper quadrant pain (ICD-10 - R10.11) PLAN OF TREATMENT Pending Tests Test Name Order Date Comprehensive Metabolic Profile (CMP) 2021-04-22 HEMOGLOBIN A1c 2021-04-22 LIPID PANEL (CARDIAC RISK) 2021-04-22 TSH 2021-04-22 VITAMIN D 25-HYDROXY 2021-04-22 Next Appt Details As scheduled with PCP Reason: Provider Name:Sherin Keita, 2021-04-25 09:30:00 AM, [id number], , [place], [address], Insurance Providers Payer Name Payer Address Payer Phone Insured Name Patient Relati onship to Insured Coverage Start Date Coverage End Date AETNA MEDICARE AETNA [employer]ANCE [employer] [address] [facility] [id number] PAULINO NATHAN
--- OUTSIDE RECORDS SUMMARY | 2021-04-30 10:43 | CCD | Continuity of Care Document ---
Author Author Radha BENAVIDEZ PFarnazA. Organization Unknown Address [address] [place] [address] Phone [phone] Care Team Providers Care Cigar Making Machine Supervisor Name Role Phone Sherin Keita RPA AUTM [phone] Problems Active Problems Provider Date Closed Colles' fracture Onset: 9 Essential hypertension Onset: 01/02/2016 Pure hypercholesterolemia Onset: 016 Social History Type Date Description Comments Sex Unknown ETOH Use Denies alcohol use Tobacco Use Start: Unknown End: Unknown Patient is a former smoker Allergies and adverse reactions Description No Known Drug Allergies Medications Active Medications SIG Qnty Indications Ordering Provide r Date Voltaren 1% Gel apply to effected area 2-3 times daily 100gm S52.514D Lalo Noriega MD 11/08/2020 Acetaminophen-Codeine #3 300-30mg Tablets take 1 tablet every 12 hours as needed for pain 10tabs S52.514A Lalo Noriega MD 09/17/2020 Voltaren 1% Gel apply 2 grams to Lt. Ankle up to three times a day 100gm M19.072 Veronika Rosario MD 05/09/2019 Simvastatin 10mg Tablets take 1 tablet at bedtime Unknown Januvia Tablets 1 by mouth e very day Unknown Glimepiride Tablets Unknown Metformin HCL 1000mg Tablets take one tablet by mouth twice a day Unknown Zantac 150mg Tablets 1 by mouth 1 hour prior to procedure Unknown Meloxicam Tablets 1 by mo uth every day Unknown Synthroid Unknown Anastrozole 1mg Tablets every day Unknown Immunizations Description No Information Available Vital Signs Date Vital Result Comment 04/26/2021 10:22am Body Temperature 97.1 F Height 66.5 inches 5'6.50" Weight 175.00 lb BMI (Body Mass Index) 27.8 kg/m2 09/17/2020 10:39am Body Temperature 97.3 F Height 66 inches 5'6" Weight 178.25 lb BMI (Body Mass Index) 28.8 kg/m2 Results Description No Information Available Procedures Date Code Description Status 04/26/2021 70244 X-Ray Shoulder Complete Complete d 11/08/2020 08105 Office/Outpatient Established Lo w MDM 20-29 Min Completed 11/08/2020 60743 X-Ray Wrist Ap & Lateral 2 Views Completed Medical Devices Description No Information Available Encounters Type Date Location Provider Dx Diagnosis Office Visit 11/08/2020 10:45a [facility] Kisha Grace PA-C S52.514 D Nondisp fx of r radial styloid pro, 7thD 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 04/26/2021 M19.011 Primary osteoarthritis, right sh oulder Sylvester Benavidez, Anjel 11/08/2020 S52.514D Nondisplaced fractur e of right radial styloid process, subsequent encounter for closed fracture with routine healing Kisha Grace PA-C 11/08/2020 M19.041 Primary osteoarthritis, right valencia nd Kisha Grace PA-C Plan of Treatment Future Appointment(s):* 05/31/2021 9:45 am - Sylvester Benavidez, P.[facility]arn[facility] at [facility] 04/26/2021 - Sylvester Benavidez, PFarnazA.* S42.001A Fracture of unspecified part of right clavicle, initial encounter for closed fracture* Follow up:* f/u 5-6 weeks R clavicle recheck with MKM w/xray * M19.011 Primary osteoarthritis, right shoulder Functional Status Description No Information Available Mental Status Description No Information Available Referrals Description No Information Available
--- OUTSIDE RECORDS SUMMARY | 2021-04-30 10:43 | CCD ---
Author Author [facility] Organization [facility] Address Unknown Phone Unavailable Care Team Providers Care Accounts Officer Name Role Phone Sherin Keita Unavailable PROBLEMS Type Condition ICD9-CM Code [id number] Code Onset Dates Condition S tatus W/U Status Risk SNOMED Code Notes Problem Essential (primary) hypertension I10 Active conf irmed 53428784 Problem Hypothyroidism, unspecified E03.9 Active confirmed 58518800 Problem Vitamin D deficiency E55.9 Active confirmed 01683808 Problem Mixed hyperlipidemia E78.2 Active confirmed 469763218 Problem Gastroesophageal reflux disease without esophagitis K21.9 Active confirmed 875104374 Problem Duodenitis K29.80 Active confirmed 64409287 Problem Type 2 diabetes mellitus with diabetic polyneuropathy E11.42 Active confirmed 32464947 Problem middle or intermediate school principal current use of insulin Z79.4 Active conf irmed 261248164 Problem History of left mastectomy Z90.12 Active confirmed 919655188 Problem Personal history of breast cancer Z85.3 Active confirmed 312946300 ALLERGIES No Known Allergies ENCOUNTERS from 1935 to 2021-04-17 Encounter Location Date Provider Diagnosis [phone] [place] [address] Mar, Sherin Keita IMMUNIZATIONS Vaccine Route Administration Date [...] Language: Question Answer Notes Languages spoken: Albanian Muslim: Question Answer Notes Muslim 99 Other Drug and Alcohol Question Answer [...] Notes Start Da te End Date Status Januvia 100 MG TAKE ONE TABLET BY MOUTH EVERY DAY for 90 Active traMADol HCl 50 MG 1 tablet as needed Orally twice daily as needed for 30 Days Jan, Active Unifine Pentips Plus 31G X 6 MM USE AT BEDTIME DIRECTED for 90 Active Drisdol 26077 UNIT 1 capsule Orally once weekly for 90 Active Sucralfate 1 GM/10ML 10 ml on an empty stomach Orally Twice a day for 30 day(s) new on discharge 01/24/21 Jan, Active Pantoprazole Sodium 40 MG 1 tablet Orally Once a day for 30 day(s) new on discharge 01/24/21 Jan, Active Gabapentin 100 MG TAKE ONE CAPSULE BY MOUTH TWICE A DAY for 90 Active Levothyroxine Sodium 50 MCG 1 tablet in the morning on an empty stomach orally Daily for 90 Active metFORMIN HCl 1000 MG 1 tablet with meals orally twice daily for 90 Active OneTouch Delica Plus Ozrrhm96K - 1 strip subcutaneousl y three times daily for 90 day(s) Active Anastrozole 1 MG 1 tablet Orally Once a day for 90 Active Acetaminophen 500 MG 1 tab Orally twice daily PRN Dec, Active Levemir FlexTouch 100 UNIT/ML INJECT 46 UNITS BEFORE BED UND ER THE SKIN for 32 Active Fosinopril Sodium 10 MG TAKE ONE TABLET BY MOUTH EVERY DAY for 90 Active Nystatin 346692 UNIT/ML 4 ml Mouth/Throat swish and swallow Four times a day for 14 Active Simvastatin 40 MG 1 tablet in the evening Orally Once a day for 90 Active One Touch Ultra 2 Lancet _ as directed DX:E11.9 three times ashutosh y for 30 days September, Active Blood Glucose Monitor System w/Device as directed E11.42 daily f or 999 days Mar, Active OneTouch Verio - TEST TWO TIMES A DAY for 50 Active PROCEDURES No Information RESULTS No Results REASON FOR VISIT pain MEDICAL (GENERAL) HISTORY Type Description Date Medical [...] 05/04 Surgical History left arm fracture @ [facility] 12/28/15 Hospitalization History L breast mastectomy 11/02 Hospitalization History lap ru 05/04 Hospitalization History 5 vaginal deliveries Hospitalization History pancreatitis- [facility] 12/2020 Goals Section No Information Health Concerns No Information MEDICAL EQUIPMENT No Information MENTAL STATUS No Information FUNCTIONAL STATUS No Information ASSESSMENTS No Information PLAN OF TREATMENT Medication Medication Name Sig Start Date Stop Date OneTouch Delica Plus Bobdcm38D - 1 strip subcutaneousl y three times daily for 90 day(s) One Touch Ultra 2 Lancet _ as directed DX:E11.9 three times daily for 30 days September, Levemir FlexTouch 100 UNIT/ML INJECT 46 UNITS BEFORE BED UND ER THE SKIN for 32 Gabapentin 100 MG TAKE ONE CAPSULE BY MOUTH TWICE A DAY for 90 Pantoprazole Sodium 40 MG 1 tablet Orally Once a day for 30 day( s) Jan, Unifine Pentips Plus 31G X 6 MM USE AT BEDTIME DIRECTED for 9 0 Januvia 100 MG TAKE ONE TABLET BY MOUTH EVERY DAY for 90 Fosinopril Sodium 10 MG TAKE ONE TABLET BY MOUTH EVERY DAY for 9 0 Blood Glucose Monitor System w/Device as directed E11.42 richie ly for 999 days Mar, traMADol HCl 50 MG 1 tablet as needed Orally twice daily as needed for 30 Days Jan, OneTouch Verio - TEST TWO TIMES A DAY for 50 Next Appt Details Provider Name:Cherise Kunz, 2021-03-26 9 09:30:00 AM, [address], , [place], [address], Provider Name:Sherin Keita, 2021-04-25 09:30:00 AM, [address], , [place], [address], Insurance Providers Payer Name Payer Address Payer Phone Insured Name Patient Relati onship to Insured Coverage Start Date Coverage End Date AETNA MEDICARE AETNA [employer] INSURANCE [employer]: [employer] [address] [facility] [phone] PAULINO NATHAN self
--- OUTSIDE RECORDS SUMMARY | 2021-04-30 10:44 | CCD ---
Author Author [facility] Organization [facility] Address Unknown Phone Unavailable Care Team Providers Care Cake Icer Name Role Phone Sherin Keita Unavailable PROBLEMS Type Condition ICD9-CM Code CEC15-FM Code Onset Dates Condition S tatus W/U Status Risk SNOMED Code Notes Problem Essential (primary) hypertension I10 Active conf irmed 30688537 Problem Hypothyroidism, unspecified E03.9 Active confirmed 50409164 Problem Vitamin D deficiency E55.9 Active confirmed 81310944 Problem Mixed hyperlipidemia E78.2 Active confirmed 717422939 Problem Gastroesophageal reflux disease without esophagitis K21.9 Active confirmed 099271009 Problem Duodenitis K29.80 Active confirmed 57000972 Problem Type 2 diabetes mellitus with diabetic polyneuropathy E11.42 Active confirmed 47192720 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 Active conf irmed 218199994 Problem History of left mastectomy Z90.12 Active confirmed 650211937 Problem Personal history of breast cancer Z85.3 Active confirmed 158380067 ALLERGIES No Known Allergies ENCOUNTERS from 1935 to 2021-04-16 Encounter Location Date Provider Diagnosis [id number] [place] [address], Sherin Keita IMMUNIZATIONS Vaccine Route Administration [...] Education Language: Question Answer Notes Languages spoken: Yi Jehovah'S Witness: Question Answer Notes Jehovah'S Witness 99 Other Drug and Alcohol Question Answer [...] AT BEDTIME DIRECTED for 90 Active Drisdol 81461 UNIT 1 capsule Orally once weekly for [...] daily for 90 Active OneTouch Delica Plus [id number] - 1 strip subcutaneousl y three times [...] MOUTH EVERY DAY for 90 Active Nystatin 397034 UNIT/ML 4 ml Mouth/Throat swish and swallow [...] Information RESULTS No Results REASON FOR VISIT Meter MEDICAL (GENERAL) HISTORY Type Description Date Medical [...] Surgical History left arm fracture @ [facility] 12/28/15 Hospitalization History L breast mastectomy 11/02 Hospitalization History lap ru 05/04 Hospitalization History 5 vaginal deliveries Hospitalization History pancreatitis- [facility] 12/2020 Goals Section No Information Health Concerns No Information MEDICAL EQUIPMENT No Information MENTAL STATUS No Information FUNCTIONAL STATUS No Information ASSESSMENTS No Information PLAN OF TREATMENT Medication Medication Name Sig Start Date Stop Date OneTouch Delica Plus Mexzrk93J - 1 strip subcutaneousl y three times [...] Provider Name:Cherise Kunz, 2021-03-26 9 09:30:00 AM, [address], , [place], [id number], Provider Name:Sherin Keita, 2021-04-25 09:30:00 AM, [address], , [place], [address], Insurance Providers Payer Name Payer Address Payer Phone Insured Name Patient Relati onship to Insured Coverage Start Date Coverage End Date [employer]NA MEDICARE [employer] [address] [facility] [id number] PAULINO NATHAN self
--- OUTSIDE RECORDS SUMMARY | 2021-04-30 10:44 | CCD ---
Author Author [facility] Organization [facility] Address Unknown Phone Unavailable Care Team Providers Care Crime Analyst Name Role Phone GILMER CASTRO MD Unavailable [...] Unavailable REINDL, GILMER OROZCO Unavailable Unavailable Fish, [facility], PA-C Unavailable Unavailabl e Fish, [facility], PA-C Unavailable Unavailabl e Fish, [facility], PA-C Unavailable Unavailabl e Fish, [facility], PA-C Unavailable Unavailabl e Fish, [facility], PA-C Unavailable Unavailabl e Fish, [facility], PA-C Unavailable Unavailabl e Fish, [facility], PA-C Unavailable Unavailabl e Fish, [facility], PA-C Unavailable Unavailabl e Fish, [facility], PA-C Unavailable Unavailabl e Fish, [facility], PA-C Unavailable Unavailabl e Fish, [facility], PA-C Unavailable Unavailabl e Fish, [facility], PA-C Unavailable Unavailabl e Fish, [facility], PA-C Unavailable Unavailabl e Fish, [facility], PA-C Unavailable Unavailabl e Fish, [facility], PA-C Unavailable Unavailabl e Fish, [facility], PA-C Unavailable Unavailabl e Fish, [facility], PA-C Unavailable Unavailabl e Fish, [facility], PA-C Unavailable Unavailabl e Fish, [facility], PA-C Unavailable Unavailabl e Fish, [facility], PA-C Unavailable Unavailabl e Fish, [facility], PA-C Unavailable Unavailabl e Fish, [facility], PA-C Unavailable Unavailabl e Fish, [facility], PA-C Unavailable Unavailabl e Fish, [facility], PA-C Unavailable Unavailabl e Fish, [facility], PA-C Unavailable Unavailabl e Fish, [facility], PA-C Unavailable Unavailabl e Fish, [facility], PA-C Unavailable Unavailabl e Fish, Pham Kisha [...] MD, FACS Unavailable Unavailable Hayes Baker, Leon Carlotn MD, FACS Unavailable Unavailable Hayes Baker, Leon [...] Leon Carlton MD, FACS Unavailable Unavailable Hayes Baekr, Leon Carlton MD, FACS Unavailable Unavailable Hayes [...] is protected by Article 27-F of the [facility] Public Health law. If you continue you may have access to information: Regarding HIV / AIDS; Provided by facilities licensed or operated by the [facility] Office of Mental Health; or Provided by the [facility] Office for People With Developmental Disabilities. If such information is present, then the following [facility] mandated warning applies: This information has [...] law may result in a fine or intermediate sentence or both. A general authorization for the release of medical or other information is NOT sufficient authorization for further disc losure. Family History Family Member Name Family Member Gender Family Member Status Date o f Status Description Data Source(s) Unknown Unknown Problem [facility] ([facility]) father Unknown Female Problem [facility] ([facility]) Unknown Female Problem [facility] ([facility]) Unknown Female Problem [facility] ([facility]) Unknown Female Problem [facility] ([facility]) Unknown Female Problem [facility] ([facility]) Unknown Female Problem [facility] ([facility]) Unknown Unknown Problem [facility] ([facility]) Encounters Encounter Providers Location Date Indications Data Source(s ) [place] [address] [facility] [address] 04/22/2021 12:00:00 AM EST eCW1 ([facility]) Unknown [address] [facility] [address] 04/16/2021 12:00:00 AM EST eCW1 ([facility]) [place] [address] [facility] [place] [address] 04/16/2021 12:00:00 AM EST eCW1 ([facility]) Unknown [address] [facility] [address] 02/18/2021 12:00:00 AM EDT eCW1 ([facility]) Outpatient Attender: GILMER Morelos/Cheryl/Jones/Laura nicholson 02/13/2021 11:00:00 AM EDT [facility] ([facility]) Unknown [address] [facility] [address] 02/05/2021 12:00:00 AM EDT eCW1 ([facility]) Office Visit, Est Pt., Level 4 PC [address] [place] [address] 02/04/2021 12:00:00 AM EDT eCW1 ([facility]) Unknown [address] [facility] [address] 01/29/2021 12:00:00 AM EDT eCW1 ([facility]) Unknown [address] [facility] [address] 01/24/2021 12:00:00 AM EDT eCW1 ([facility]) <td ID="encounterTypeDescriptionID0">2 Y ear Follow-Up</td><td>Gilmer Baker MD, FACS</td><td>Gilmer Daly MD [facility]</td><td>12/19/2020</td><td>2:24PM</td><td>3:41PM</td><td></td>Outpatient Attender: Gilmer Baker MD, ROMERO Daly MD [facility] 12/19/2020 02:24:0 0 PM EDT - 12/19/2020 03:41:00 PM EDT GERONIMO (Gilmer Baker MD [facility]) OFFICE OUTPATIENT VISIT 15 MINUTES Attender: Kisha HICKEY PA-C Physical Therapy 11/08/2020 10:45:00 AM EDT MEDENT ([facility]) Office Visit Attender: Kisha HICKEY PA-C Physical Therapy 10/17/2020 02:00:00 PM EDT [facility] ([facility]) Unknown [address] [facility] [address] 10/03/2020 12:00:00 AM EDT eCW1 ([facility]) Office Visit Attender: Kisha HICKEY PA-C Physical Therapy 09/26/2020 01:30:00 PM EDT MEDENT ([facility]) Outpatient Attender: Kisha HICKEY PA-C Physical Therapy 09/17/2020 10:15:00 AM EDT [facility] ([facility]) Unknown [address] [facility] [address] 08/21/2020 12:00:00 AM EDT eCW1 ([facility]) Office Visit, Est Pt., Level 4 PC [address] [place] [address] 08/14/2020 12:00:00 AM EDT eCW1 ([facility]) Outpatient Attender: Christy griffith 06/01/2020 04:25:00 PM LATASHA FALK ([facility]) Office Visit, Latasha Pt., Level [address] FC [address] [place] [address] 03/06/2020 12:00:00 AM EDT eCW1 ([facility]) Immunizations Vaccine Date Status Description Data Source(s) COVID-19 VACCINE Moderna 02/06/2021 12:00:00 AM EDT completed [facility] Vaccine Series Complete: YESThis Data wa s Submitted to [facility] Via [employer]. COVID-19 VACCINE Moderna 09/10/2020 12:00:00 AM EDT completed [facility] Vaccine Series Complete: YESThis Data wa s Submitted to [facility] Via [employer]. COVID-19 VACC,MRNA(MODERNA)/PF 09/10/2020 12:00:00 AM EDT completed [facility] COVID-19 VACCINE Moderna 08/10/2020 12:00:00 AM EDT completed [facility] Vaccine Series Complete: NOThis Data was Submitted to [facility] Via [employer]. COVID-19 VACCINE, MRNA-1273, LNP-S (MODERNA)/PF 08/10/2020 1 2:00:00 AM EDT completed [facility] COVID-19 dose #1 given elsewhere Unspecified 08/06/2020 09:4 5:00 AM EDT completed eCW1 ([facility]) COVID-19 dose #1 given elsewhere Unspecified 08/06/2020 09:4 5:00 AM EDT completed eCW1 ([facility]) COVID-19 dose #1 given elsewhere Unspecified 08/06/2020 09:4 5:00 AM EDT completed eCW1 ([facility]) COVID-19 dose #1 given elsewhere Unspecified 08/06/2020 09:4 5:00 AM EDT completed eCW1 ([facility]) COVID-19 dose #1 given elsewhere Unspecified 08/06/2020 09:4 5:00 AM EDT completed eCW1 ([facility]) COVID-19 dose #1 given elsewhere Unspecified 08/06/2020 09:4 5:00 AM EDT completed eCW1 ([facility]) COVID-19 dose #1 given elsewhere Unspecified 08/06/2020 09:4 5:00 AM EDT completed eCW1 ([facility]) COVID-19 dose #1 given elsewhere Unspecified 08/06/2020 09:4 5:00 AM EDT completed eCW1 ([facility]) COVID-19 dose #1 given elsewhere Unspecified 08/06/2020 09:4 5:00 AM EDT completed eCW1 ([facility]) COVID-19 dose #1 given elsewhere Unspecified 08/06/2020 09:4 5:00 AM EDT completed eCW1 ([facility]) COVID-19 dose #1 given elsewhere Unspecified 08/06/2020 09:4 5:00 AM EDT completed eCW1 ([facility]) Medications Medication Brand Name Start Date Product Form Dose Route Admi nistrative Instructions Pharmacy Instructions Status Indications Reaction Description Data Source(s) BLOOD SUGAR DIAGNOSTIC 04/17/2021 12:00:00 AM EST strip 100 TEST TWO TIMES A DAY TEST TWO TIMES A DAY SOLD: 04/20/2021 [facility] BLOOD-GLUCOSE METER 04/17/2021 12:00:00 AM EST misc 1 TEST THREE TIMES A DAY DIRECTED TEST THREE TIMES A DAY DIRECTED SOLD: 04/20/2021 [facility] 33 gauge 04/17/2021 12:00:00 AM EST misc 300 USE THREE TIMES A DAY DIRECTED USE THREE TIMES A DAY DIRECTED SOLD: 04/20/2021 [facility] Blood Glucose Monitor System w/Device Blood Glucose Monitor System w/Device 04/16/2021 12:00:00 AM EST active Blood Glucose Monitor System w/Device eCW1 ([facility]) Blood Glucose Monitor System w/Device Blood Glucose Monitor System w/Device 04/16/2021 12:00:00 AM EST active Blood Glucose Monitor System w/Device eCW1 ([facility]) Blood Glucose Monitor System w/Device Blood Glucose Monitor System w/Device 04/16/2021 12:00:00 AM EST active Blood Glucose Monitor System w/Device eCW1 ([facility]) 100 mg 04/03/2021 12:00:00 AM EST tablet [...] {tablet_as_needed} active traMADol HCl 50 MG eCW1 ([facility]) tramadol hydrochloride 50 MG Oral Tablet traMADol HCl 50 MG traMADol HCl 50 MG 02/05/2021 12:00:00 AM EDT 1.0 {tablet_as_needed} active traMADol HCl 50 MG eCW1 ([facility]) tramadol hydrochloride 50 MG Oral Tablet traMADol HCl 50 MG traMADol HCl 50 MG 02/05/2021 12:00:00 AM EDT 1.0 {tablet_as_needed} active traMADol HCl 50 MG eCW1 ([facility]) 50 mg 02/05/2021 12:00:00 AM EDT tablet 60 TAKE ONE TABLET BY MOUTH TWICE A DAY NEEDED * MAXIMUM DAILY DOSE = 2 TAKE ONE TABLET BY MOUTH TWICE A DAY NEEDED * MAXIMUM DAILY DOSE = 2 SOLD: 02/06/2021 [facility] tramadol hydrochloride 50 MG Oral Tablet traMADol HCl 50 MG traMADol HCl 50 MG 02/05/2021 12:00:00 AM EDT 1.0 {tablet_as_needed} active traMADol HCl 50 MG eCW1 ([facility]) 10 mg 02/05/2021 12:00:00 AM EDT tablet 90 TAKE ONE TABLET BY MOUTH EVERY DAY TAKE ONE TABLET BY MOUTH EVERY DAY SOLD: 02/06/2021 [facility] tramadol hydrochloride 50 MG Oral Tablet traMADol HCl 50 MG traMADol HCl 50 MG 02/05/2021 12:00:00 AM EDT 1.0 {tablet_as_needed} active traMADol HCl 50 MG eCW1 ([facility]) tramadol hydrochloride 50 MG Oral Tablet traMADol HCl 50 MG traMADol HCl 50 MG 02/05/2021 12:00:00 AM EDT 1.0 {tablet_as_needed} active traMADol HCl 50 MG eCW1 ([facility]) 100 mg/mL 01/24/2021 12:00:00 AM EDT suspension 1260 TAKE 10ML BY MOUTH FOUR TIMES A DAY BEFORE MEALS AND AT BEDTIME TAKE 10ML BY MOUTH FOUR TIMES A DAY BEFORE MEALS AND AT BEDTIME SOLD: 01/24/2021 [facility] Sucralfate 100 MG/ML Oral Suspension Sucralfate 1 GM/10ML Hurt cralfate 1 GM/10ML 01/24/2021 12:00:00 AM EDT 10.0 {ml_on_an_empty_stomach} active Sucralfate 1 GM/10ML eCW1 ([facility]) Sucralfate 100 MG/ML Oral Suspension Sucralfate 1 GM/10ML Hurt cralfate 1 GM/10ML 01/24/2021 12:00:00 AM EDT 10.0 {ml_on_an_empty_stomach} active Sucralfate 1 GM/10ML eCW1 ([facility]) pantoprazole 40 MG Delayed Release Oral Tablet Pantopr azole Sodium 40 MG Pantoprazole Sodium 40 MG 01/24/2021 12:00:00 AM EDT 1.0 {tablet} active Pantoprazole Sodium 40 MG eCW1 ( [facility]) pantoprazole 40 MG Delayed Release Oral Tablet Pantopr azole Sodium 40 MG Pantoprazole Sodium 40 MG 01/24/2021 12:00:00 AM EDT 1.0 {tablet} active Pantoprazole Sodium 40 MG eCW1 ( [facility]) Sucralfate 100 MG/ML Oral Suspension Sucralfate 1 GM/10ML Hurt cralfate 1 GM/10ML 01/24/2021 12:00:00 AM EDT 10.0 {ml_on_an_empty_stomach} active Sucralfate 1 GM/10ML eCW1 ([facility]) Sucralfate 100 MG/ML Oral Suspension Sucralfate 1 GM/10ML Hurt cralfate 1 GM/10ML 01/24/2021 12:00:00 AM EDT 10.0 {ml_on_an_empty_stomach} active Sucralfate 1 GM/10ML eCW1 ([facility]) pantoprazole 40 MG Delayed Release Oral Tablet Pantopr azole Sodium 40 MG Pantoprazole Sodium 40 MG 01/24/2021 12:00:00 AM EDT 1.0 {tablet} active Pantoprazole Sodium 40 MG eCW1 ( [facility]) Sucralfate 100 MG/ML Oral Suspension Sucralfate 1 GM/10ML Hurt cralfate 1 GM/10ML 01/24/2021 12:00:00 AM EDT 10.0 {ml_on_an_empty_stomach} active Sucralfate 1 GM/10ML eCW1 ([facility]) pantoprazole 40 MG Delayed Release Oral Tablet Pantopr azole Sodium 40 MG Pantoprazole Sodium 40 MG 01/24/2021 12:00:00 AM EDT 1.0 {tablet} active Pantoprazole Sodium 40 MG eCW1 ( [facility]) pantoprazole 40 MG Delayed Release Oral Tablet Pantopr azole Sodium 40 MG Pantoprazole Sodium 40 MG 01/24/2021 12:00:00 AM EDT 1.0 {tablet} active Pantoprazole Sodium 40 MG eCW1 ( [facility]) pantoprazole 40 MG Delayed Release Oral Tablet Pantopr azole Sodium 40 MG Pantoprazole Sodium 40 MG 01/24/2021 12:00:00 AM EDT 1.0 {tablet} active Pantoprazole Sodium 40 MG eCW1 ( [facility]) pantoprazole 40 MG Delayed Release Oral Tablet Pantopr azole Sodium 40 MG Pantoprazole Sodium 40 MG 01/24/2021 12:00:00 AM EDT 1.0 {tablet} active Pantoprazole Sodium 40 MG eCW1 ( [facility]) Sucralfate 100 MG/ML Oral Suspension Sucralfate 1 GM/10ML Hurt cralfate 1 GM/10ML 01/24/2021 12:00:00 AM EDT 10.0 {ml_on_an_empty_stomach} active Sucralfate 1 GM/10ML eCW1 ([facility]) pantoprazole 40 MG Delayed Release Oral Tablet PANTOPRAZOLE SODIUM 01/24/2021 12:00:00 AM EDT tablet,delayed release (DR/EC) 30 T ALEXANDRO ONE TABLET BY MOUTH EVERY DAY TAKE ONE TABLET BY MOUTH EVERY DAY SOLD: 01/24/2021 [facility] Sucralfate 100 MG/ML Oral Suspension Sucralfate 1 GM/10ML Hurt cralfate 1 GM/10ML 01/24/2021 12:00:00 AM EDT 10.0 {ml_on_an_empty_stomach} active Sucralfate 1 GM/10ML eCW1 ([facility]) 100 mg 12/24/2020 12:00:00 AM EDT tablet 90 TAKE ONE TABLET BY MOUTH EVERY DAY TAKE ONE TABLET BY MOUTH EVERY DAY SOLD: 12/25/2020 [facility] 33 gauge 12/06/2020 12:00:00 AM EDT misc 100 TEST THREE TIMES A DAY DIRECTED TEST THREE TIMES A DAY DIRECTED SOLD: 12/19/2020 [facility] BLOOD SUGAR DIAGNOSTIC 11/19/2020 12:00:00 [...] AND SWALLOW FOR 14 DAYS SOLD: 03/14/2020 [facility] 100 mg 01/14/2020 12:00:00 AM [...] TIMES A DAY SOLD: 04/30/2020 [facility] Metformin hydrochloride 1000 [...] ONE TABLET BY MOUTH EVERY DAY IN MORNING ON AN EMPTY STOMACH SOLD: 04/30/2020 [...] type / Coverage type Policy ID Covered republican ID Covered republican's relationship to ravi Policy Ravi Plan Information Wellcare Advantage Plan Medigap Part B [id number] Self Todays Options Medigap Part B [id number] Self Blue Shield [facility] Advantage Medigap Part B [id number] Self [id number] Todays Options Commercial [id number] Self AETNA MEDICARE O [id number] S MEBTD PML WELLCARE O [id number] S [id number] WELLCARE [id number] SP [id number] TODAYS OPTIONS [id number] SP [id number] [facility] Health Plans [facility] Commercial [id number] Self [id number] TODAYS OPTIONS [id number] SP [id number] TODAYS OPTIONS/THAI O [id number] S [id number] ANSI-Medicare Part B [id number] ANSI-Medicare Part B [id number] ANSI-Medicare Part B [id number] ANSI-Medicare Part B [id number] Todays Options Commercial [id number] Self [id number] ANSI-Medicare Part B [id number] ANSI-Medicare Part B [id number] ANSI-Medicare Part B [id number] ANSI-Medicare Part B [id number] ANSI-Medicare Part B [id number] ANSI-Medicare Part B [id number] ANSI-Medicare Part B [id number] ANSI-Medicare Part B [id number] Today's Options Medicare Commercial [id number] Self [id number] Today's Options Medicare Commercial [id number] Self [id number] TODAYS OPTIONS/THAI O [id number] S [id number] Today's Option Medicare Commercial [id number] Self [id number] Today's Options Medicare Commercial [id number] Self [id number] MEDICARE BLUE PPO 306 [id number] SP [id number] Today's Options Medicare Commercial [id number] Self [id number] Medicaid [place] Medigap Part B [id number] Self TODAYS OPTIONS [id number] SP [id number] Today's Option Medicare Commercial [id number] Self BS Medicare Blue Ppo/Hmo Commercial [id number] Self EXCELLUS BCBS P [id number] S [id number] [id number] BLUE CROSS BLUE SHIELD-O/P [id number] BLUE CROSS BLUE SHIELD-CLINIC [id number] AETNA MEDICARE [id number] SP [id number] AETNA MEDICARE [id number] SP [id number] AETNA MEDICARE [id number] SP MEBTD PML SELF PAY ONLY Problems, Conditions, and Diagnoses Code Display Name Description Problem Type Effective Dates Data Source(s) K29.80 [id number] Duodenitis Problem 02/04/2021 12:00:00 AM ED T eCW1 ([facility]) Surgeries/Procedures Procedure Description Date Indications Data Source(s) RADEX SHOULDER COMPLETE MINIMUM 2 VIEWS 04/26/2021 12: 00:00 AM EST MEDENT ([facility]) OFFICE OUTPATIENT NEW 45 MINUTES 02/13/2021 12:00:00 A M EDT MEDENT ([facility], ) RADEX WRIST 2 VIEWS 11/08/2020 12:00:00 AM EDT MEDENT ([facility]) OFFICE OUTPATIENT VISIT 15 MINUTES 11/08/2020 12:00:00 AM EDT [facility] ([facility]) RADEX WRIST 2 VIEWS 10/17/2020 12:00:00 AM EDT [facility] ([facility]) RADEX WRIST 2 VIEWS 09/26/2020 12:00:00 AM EDT MEDENT ([facility]) CLTX DSTL RADIAL FX/EPIPHYSL SEP W/O MANJ 09/17/2020 1 2:00:00 AM EDT MED[facility] ([facility]) RADEX WRIST COMPLETE MINIMUM 3 VIEWS 09/17/2020 12:00: 00 AM EDT MEDENT ([facility]) OFFICE OUTPATIENT VISIT 25 MINUTES 09/17/2020 12:00:00 AM EDT [facility] ([facility]) Results ID Date Data Source [id number] 04/25/2021 11:15:00 AM EST [facility] Name Value Range Interpretation Code Description Data Natalie rce(s) Supporting Document(s) SARS-CoV-2 (COVID-19) RNA [Presence] in Respiratory specimen by SUSAN with probe detection Not Detected [facility] This lab was ordered by [facility] and reported by [facility]. ID Date Data Source [id number] 02/19/2021 08:53:00 AM EDT [facility] ([facility], ) Name Value Range Interpretation Code Description Data Natalie rce(s) Supporting Document(s) Creatinine For GFR 0.94 mg/dL 0.55-1.30 Normal (applies to non -numeric results) [facility] ([facility], ) Glomerular Filtration Rate Laboratory test result Normal (applies to non- numeric results) [facility] ([facility], ) <content>Units are mL/min/1.73 m2</content>
<content></content>
<content>Chronic Kidney Disease Staging per NKF:</content>
<content></content>
<content>Stage I & II GFR >=60 Normal to Mildly Decreased</content>
<content>Stage III GFR 30- 59 Moderately Decreased</content>
<content>Stage IV GFR 15-29 Severely Decreased</content>
<content>Stage V GFR <15 Very Little GFR Left</content>
<content>ESRD GFR <15 on GEOTECHNICAL FIELD TECHNICIAN</content>
<content></content> ID Date Data Source [id number] 02/19/2021 08:53:00 AM EDT [facility] ([facility], ) Name Value Range Interpretation Code Description Data Natalie rce(s) Supporting Document(s) Urea nitrogen [Mass/volume] in Serum or Plasma 17 mg/dL 7 -18 Normal (applies to non-numeric results) [facility] ([facility], ) ID Date Data Source [id number] 02/19/2021 08:53:00 AM EDT [facility] ([facility]) Name Value Range Interpretation Code Description Data Natalie rce(s) Supporting Document(s) Ast/Sgot 21 U/L 7-37 Normal (applies to non-numeric resul ts) [facility] Alkaline Phosphatase 74 U/L 45-117 Normal (applies to non-num reed results) [facility] ([facility]) Alt/SGPT 28 U/L 12-78 Normal (applies to non-numeric resul ts) [facility] Bilirubin,Direct 0.2 mg/dL 0.0-0.2 Normal (applies to non-numeric results) [facility] ([facility]) Bilirubin,Total 0.4 mg/dL 0.2-1.0 Normal (applies to non-numeric results) [facility] ([facility]) Total Protein 6.8 GM/DL 6.4-8.2 Normal (applies to non-numeric re sults) [facility] ([facility]) Albumin 3.6 GM/DL 3.2-5.2 Normal (applies to non-numeric resul ts) [facility] ([facility]) Albumin/Globulin Ratio 1.1 1.2-2.2 Below low normal [facility] ([facility]) 02/21/21 (Thr Feb 21) 03:37 PM GILMER FERRER Unremarkable/normal ID Date Data Source [id number] 02/19/2021 08:53:00 AM EDT [facility] ([facility]) Name Value Range Interpretation Code Description Data Natalie rce(s) Supporting Document(s) IgG subclass 4 [Mass/volume] in Serum 13 mg/dL 2-96 Normal (applies to non- numeric results) [facility] ([facility]) Performed at: [address] [id number] Supervisor Operations: Lillian Aguilar MD, Phone: [phone] Cancer Ag 19-9 [Units/volume] in Serum or Plasma 10.4 U/ML Normal (applies to non-numeric results) [facility] ([facility]) THE CA 19-9 ASSAY IS PERFORMED ON THE [employer] BY CHEMILUMINESCENCE AND SHOULD NOT BE COMPARED INTERCHANGEABLY WITH OTHER METHODS. IT SHOULD NOT BE USED ALONE A SCREENING TEST OR DIAGNOSIS FOR THE PRESENCE OR ABSENCE OF MALIGNANT DISEASE. PREDICTIONS OF DISEASE RECURRENCE SHOULD NOT BE BASED SOLELY ON VALUES OBTAINED FROM SERIAL PATIENT SERUM VALUES. ID Date Data Source [id number] 02/19/2021 08:53:00 AM EDT [facility] Name Value Range Interpretation Code Description Data Natalie rce(s) Supporting Document(s) Amylase [Enzymatic activity/volume] in Serum or Plasma 42 U/L 25-115 Normal (applies to non-numeric results) [facility] [facility] ([facility]) Lipoprotein lipase [Enzymatic activity/volume] in Serum or P lasma 148 U/L [id number] Normal (applies to non-numeric results) [facility] ([facility]) ID Date Data Source [id number] 01/24/2021 01:11:00 AM EDT [facility] Name Value Range Interpretation Code Description Data Natalie rce(s) Supporting Document(s) SARS coronavirus 2 RNA [Presence] in Res piratory specimen by SUSAN with probe detection NEGATIVE [facility] This lab was ordered by [facility] a nd reported by [facility]. ID Date Data Source [id number] 08/10/2020 12:00:00 AM EDT [facility] Name Value Range Interpretation Code Description Data Natalie rce(s) Supporting Document(s) SARS-CoV2 Rapid Antigen Negative [facility] This lab was reported by Thomas Powell. ID Date Data Source [id number] 06/01/2020 12:00:00 AM EST [facility] Name Value Range Interpretation Code Description Data Natalie rce(s) Supporting Document(s) SARS-CoV2 Rapid Antigen Positive [facility] This lab was reported by Leif murray. ID Date Data Source [id number] 05/22/2020 12:00:00 AM EST [facility] Name Value Range Interpretation Code Description Data Natalie rce(s) Supporting Document(s) SARS coronavirus 2 RNA [facility] This lab was ordered by [facility] and rep orted by [facility]. Procedure Social History Code Duration Value Status Description Data Source(s ) Smoking 04/22/2021 12:00:00 AM EST Former Smoker completed Former Smoker eCW1 (Formerly [facility]) Smoking 02/04/2021 12:00:00 AM EDT Former Smoker completed Former Smoker eCW1 (Formerly [facility]) Smoking 02/04/2021 12:00:00 AM EDT Former Smoker completed Former Smoker eCW1 (Formerly [facility]) Smoking 02/04/2021 12:00:00 AM EDT Former Smoker completed Former Smoker eCW1 (Formerly [facility]) Smoking 02/04/2021 12:00:00 AM EDT Former Smoker completed Former Smoker eCW1 (Formerly [facility]) Smoking 02/04/2021 12:00:00 AM EDT Former Smoker completed Former Smoker eCW1 (Formerly [facility]) Smoking 01/24/2021 08:52:29 AM EDT Ex-smoker (finding) complet ed Ex-smoker (finding) GERONIMO (Gilmer Baker MD [facility]) Smoking 08/14/2020 12:00:00 AM EDT Former Smoker completed Former Smoker eCW1 (Formerly [facility]) Smoking 08/14/2020 12:00:00 AM EDT Former Smoker completed Former Smoker eCW1 (Formerly [facility]) Smoking 08/14/2020 12:00:00 AM EDT Former Smoker completed Former Smoker eCW1 (Formerly [facility]) Smoking 08/14/2020 12:00:00 AM EDT Former Smoker completed Former Smoker eCW1 (Formerly [facility]) Smoking 08/14/2020 12:00:00 AM EDT Former Smoker completed Former Smoker eCW1 (Formerly [facility]) Smoking 06/01/2020 12:00:00 AM EST Patient is a former smoker completed Patient is a former smoker MEDENT ([facility], [facility]) Smoking 03/06/2020 12:00:00 AM EDT Former Smoker completed Former Smoker eCW1 (Formerly [facility]) Smoking 03/06/2020 12:00:00 AM EDT Former Smoker completed Former Smoker eCW1 (Formerly [facility]) Vital Signs ID Date Data Source UNK Name Value Range Interpretation Code Description Data Source(s) Body temperature 97.1 [degF] 97.1 [degF] MEDENT ([facility] ) Body height 66.5 [in_i] 66.5 [in_i] MEDENT ([facility] ) 5'6.50" Body weight 175.00 [lb_av] 175.00 [lb_av] MEDEN T ([facility] ) Body mass index (BMI) [Ratio] 27.8 kg/m2 27.8 k g/m2 MEDENT ([facility]) Systolic blood pressure 148 mm[Hg] 148 mm[Hg] e CW1 (Formerly [facility]) Body weight 176 [lb_av] 176 [lb_av] eCW1 ([facility]) Body weight 79.83 kg 79.83 kg eCW1 (Formerly [facility]) Body height 66 [in_i] 66 [in_i] eCW1 ([facility]ly [facility]) Body mass index (BMI) [Ratio] 28.40 kg/m2 28.40 kg/m2 eCW1 (Formerly [facility]) Heart rate 110 /min 110 /min eCW1 ([facility]) Respiratory rate 18 /min 18 /min eCW1 (Formerly [facility]) Body temperature 97.2 [degF] 97.2 [degF] eCW1 ( [facility]ly [facility]) Diastolic blood pressure 88 mm[Hg] 88 mm[Hg] eCW1 (Formerly [facility]) Diastolic blood pressure 100 mm[Hg] 100 mm[Hg] MEDENT ([facility], ) Body weight 173.00 [lb_av] 173.00 [lb_av] MEDEN T ([facility], ) Body weight 78.473 kg 78.473 kg MEDENT ([facility], ) Body surface area Derived from formula 1.89 m2 1.89 m2 [facility], [facility] Systolic blood pressure 140 mm[Hg] 140 mm[Hg] M EDENT ([facility], ) Body height 66.5 [in_i] 66.5 [in_i] MEDENT ([facility], ) 5'6.50" Body mass index (BMI) [Ratio] 27.5 kg/m2 27.5 k g/m2 MEDENT ([facility], ) [place] body weight 130 [lb_av] 130 [lb_av] MEDEN T ([facility], ) Body weight 174 [lb_av] 174 [lb_av] eCW1 ([facility]) Body height 66 [in_i] 66 [in_i] eCW1 ([facility]ly [facility]) Body mass index (BMI) [Ratio] 28.08 kg/m2 28.08 kg/m2 eCW1 (Formerly [facility]) Heart rate 101 /min 101 /min eCW1 ([facility]) Respiratory rate 18 /min 18 /min eCW1 ([facility]) Body temperature 97.9 [degF] 97.9 [degF] eCW1 ( [facility]) Systolic blood pressure 162 mm[Hg] 162 mm[Hg] e CW1 ([facility]ly [facility]) Diastolic blood pressure 88 mm[Hg] 88 mm[Hg] eCW1 ([facility]ly [facility]) Body temperature 97.3 [degF] 97.3 [degF] MEDENT ([facility] ) Body height 66 [in_i] 66 [in_i] MEDENT ([facility] ) 5'6" Body weight 178.25 [lb_av] 178.25 [lb_av] MEDEN T ([facility] ) Body mass index (BMI) [Ratio] 28.8 kg/m2 28.8 k g/m2 MEDENT ([facility] ) Body weight 175 [lb_av] 175 [lb_av] eCW1 ([facility]) Body height 66 [in_i] 66 [in_i] eCW1 ([facility]ly [facility]) Body mass index (BMI) [Ratio] 28.24 kg/m2 28.24 kg/m2 eCW1 (Formerly [facility]) Heart rate 114 /min 114 /min eCW1 ([facility]) Respiratory rate 18 /min 18 /min eCW1 ([facility]) Body temperature 97.3 [degF] 97.3 [degF] eCW1 ( [facility]) Systolic blood pressure 144 mm[Hg] 144 mm[Hg] e CW1 ([facility]ly [facility]) Diastolic blood pressure 76 mm[Hg] 76 mm[Hg] eCW1 ([facility]ly [facility]) Systolic blood pressure 140 mm[Hg] 140 mm[Hg] M EDENT ([facility], [facility]) Diastolic blood pressure 77 mm[Hg] 77 mm[Hg] MEDENT ([facility], [facility]) Heart rate 99 /min 99 /min MEDENT ([facility], [facility]) Respiratory rate 14 /min 14 /min MEDENT ( [facility], [facility]) Oxygen saturation in Arterial blood by Pulse oximetry 96 % 96 % MEDENT ([facility], [facility]) Body temperature 96.8 [degF] 96.8 [degF] MEDENT ([facility], [facility]) Body weight 170.00 [lb_av] 170.00 [lb_av] MEDEN T ([facility], [facility]) Body height 66 [in_i] 66 [in_i] MEDENT ([facility]) 5'6" Body mass index (BMI) [Ratio] 27.4 kg/m2 27.4 k g/m2 MEDENT ([facility], [facility]) Body weight 175.0 [lb_av] 175.0 [lb_av] eCW1 ([facility]) Body height 66 [in_i] 66 [in_i] eCW1 ([facility]ly [facility]) Body mass index (BMI) [Ratio] 28.24 kg/m2 28.24 kg/m2 eCW1 (Formerly [facility]) Heart rate 112 /min 112 /min eCW1 ([facility]) Respiratory rate 18 /min 18 /min eCW1 ([facility]) Body temperature 96.5 [degF] 96.5 [degF] eCW1 ( [facility]ly [facility]) Systolic blood pressure 122 mm[Hg] 122 mm[Hg] e CW1 ([facility]ly [facility]) Diastolic blood pressure 74 mm[Hg] 74 mm[Hg] eCW1 (Formerly [facility]) Patient Treatment Plan of Care Planned Activity Planned Date Details Description Data Source (s) Blood Glucose Monitor System w/Device 04/16/2021 12:00:00 AM EST eCW1 (Formerly [facility]) Blood Glucose Monitor System w/Device 04/16/2021 12:00:00 AM EST eCW1 (Formerly [facility]) tramadol hydrochloride 50 MG Oral Tablet 02/05/2021 12:00:00 AM EDT eCW1 (Formerly [facility]) tramadol hydrochloride 50 MG Oral Tablet 02/05/2021 12:00:00 AM EDT eCW1 ([facility]ly [facility]) tramadol hydrochloride 50 MG Oral Tablet 02/05/2021 12:00:00 AM EDT eCW1 ([facility]ly [facility]) tramadol hydrochloride 50 MG Oral Tablet 02/05/2021 12:00:00 AM EDT eCW1 ([facility]ly [facility]) tramadol hydrochloride 50 MG Oral Tablet 02/05/2021 12:00:00 AM EDT eCW1 (Formerly [facility]) pantoprazole 40 MG Delayed Release Oral Tablet 01/24/2021 12:00:00 AM EDT eCW1 ([facility]ly [facility]) pantoprazole 40 MG Delayed Release Oral Tablet 01/24/2021 12:00:00 AM EDT eCW1 ([facility]ly [facility]) pantoprazole 40 MG Delayed Release Oral Tablet 01/24/2021 12:00:00 AM EDT eCW1 (Formerly [facility])
[2021-04-30] MEDS ORDERED: propofoL 200 MG/20 ML VIAL As Ordered ONE ×2 (14:08→14:13)
[2021-04-30] MEDS ORDERED: LIDOCAINE 2% 100MG/5ML SDV (FOR ANES.) As Ordered ONE (14:08)
--- NOTE | 2021-04-30 14:30 | ROOR ---
Patient Name: Radha Alexandra Procedure Date: 04/30/2021 2:01 PM Date of : 1935 Age: 86 Room: [facility] Gender: Female Note Status: Finalized Procedure: Upper GI endoscopy Indications: Epigastric abdominal pain, Abnormal CT of the GI tract Providers: Brandt Lobo MD Referring MD: LEDY Vora Requesting Provider: Medicines: Monitored Anesthesia Care Complications: No immediate complications. Procedure: Pre-Anesthesia Assessment: - The heart rate, respiratory rate, oxygen saturations, blood pressure, adequacy of pulmonary ventilation, and response to care were monitored throughout the procedure. The Endoscope was introduced through the mouth, and advanced to the third part of duodenum. The upper GI endoscopy was accomplished without difficulty. The patient tolerated the procedure well. 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 This was biopsied with a cold forceps for histology. Localized mild inflammation characterized by granularity was found in the second portion of the duodenum. Biopsies were taken with a cold forceps for histology. Very small (insignificant) Hiatal Hernia. The entire examined stomach was normal. A widely patent Schatzki ring was found at the gastroesophageal junction. The exam of the esophagus was otherwise normal. Impression: - Mild Duodenitis and moderate deformity with slight narrowing at junction between first and second portions of the duodenum. 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 Biopsied. - Very small (insignificant) Hiatal Hernia. - Normal stomach. - Widely patent Schatzki ring. Recommendation: - Use Protonix (pantoprazole) 40 mg PO daily indefinitely. - The suspected duodenal ulcer has healed. Can stop sucralfate. - Observe patient's clinical course. - Telephone endoscopist for pathology results in 2 weeks. Procedure Code(s): --- Professional --- 73341, Esophagogastroduodenoscopy, flexible, transoral; with biopsy, single or multiple Diagnosis Code(s): --- Professional --- R93.3, Abnormal findings on diagnostic imaging of other parts of digestive tract R10.13, Epigastric pain K22.2, Esophageal obstruction K29.80, Duodenitis without bleeding K31.89, Other diseases of stomach and duodenum CPT copyright 2019 [employer]. All rights reserved. The codes documented in this report are preliminary and upon certified medical coder review may be revised to meet current compliance requirements. Brandt Lobo MD Brandt Lobo MD 04/30/2021 2:30:15 PM Electronically signed by Brandt Lobo MD Number of Addenda: 0 Note Initiated On: 04/30/2021 2:01 PM Estimated Blood Loss: Estimated blood loss: none.
[2021-04-30 14:50] VITALS: BP 129/91
== END 2021-04-30 15:04 | disposition home or self-care (01) ==
LOC: M OPP 10:36
PROVIDERS: ATTEND Internal Medicine Gastroenterology
DX: K22.2 Esophageal obstruction (principal); K29.80 Duodenitis without bleeding; K31.89 Other diseases of stomach and duodenum; R93.3 Abnormal findings on diagnostic imaging of other parts of digestive tract; R10.13 Epigastric pain; Z79.4 Long term (current) use of insulin; Z79.891 Long term (current) use of opiate analgesic; Z79.899 Other long term (current) drug therapy; Z85.3 Personal history of malignant neoplasm of breast; Z80.0 Family history of malignant neoplasm of digestive organs; Z80.3 Family history of malignant neoplasm of breast; Z80.42 Family history of malignant neoplasm of prostate; Z87.891 Personal history of nicotine dependence

== ENCOUNTER 2021-09-11 12:35 | Emergency (ER) | payer MEDICARE ==
[~2021-09-11] VITALS: Ht 167.6 cm; Wt 79.5 kg
[~2021-09-11 12:35] MED LIST changes: -FOSI10TA4 PO; +FOSI10TA44 PO; +NAPR-837 PO; -NS 1,000 ML IV ONE
[2021-09-11] MEDS ORDERED: NS 1,000 ML IV ONE (13:55)
[2021-09-11 14:14] LABS: BASO # 0.1 10^3/uL (0.0-0.2); BASO % 0.8 % (0.0-1.0); EOS # 0.2 10^3/uL (0.0-0.5); HEMATOCRIT 39.9 % (36.0-47.0); HEMOGLOBIN 12.5 g/dl (12.0-15.5); LYMPH # 1.9 10^3/uL (1.5-5.0); LYMPH % 22.3 % (24.0-44.0); MEAN CORPUSCULAR HEMOGLOBIN 27.8 pg (27.0-33.0); MEAN CORPUSCULAR HGB CONC 31.3 g/dl (32.0-36.5); MEAN CORPUSCULAR VOLUME 88.7 fl (80.0-96.0); MONO # 0.5 10^3/uL (0.0-0.8); MONO % 6.2 % (2.0-8.0); NEUTROPHILS # 5.8 10^3/uL (1.5-8.5); NEUTROPHILS % 68.2 % (36.0-66.0); PLATELET COUNT, AUTOMATED 195 10^3/uL (150-450); WHITE BLOOD COUNT 8.6 10^3/uL (4.0-10.0)
[2021-09-11 14:55] LABS: ALBUMIN 3.7 GM/DL (3.2-5.2); ALT/SGPT 33 U/L (12-78); BILIRUBIN,TOTAL 0.4 MG/DL (0.2-1.0); BLOOD UREA NITROGEN 12 MG/DL (7-18); CALCIUM LEVEL 10.2 MG/DL (8.8-10.2); CARBON DIOXIDE LEVEL 20 MEQ/L (21-32); CHLORIDE LEVEL 114 MEQ/L (98-107); CREATININE FOR GFR 0.79 MG/DL (0.55-1.30); FREE T3 2.4 PG/ML (2.2-4.0); GLOMERULAR FILTRATION RATE > 60.0 (>32); GLUCOSE, FASTING 158 MG/DL (70-100); SODIUM LEVEL 141 MEQ/L (136-145); TOTAL PROTEIN 6.7 GM/DL (6.4-8.2)
[2021-09-11 15:18] LABS: RSV AMPLIFICATION NEGATIVE (NEGATIVE)
[2021-09-11 15:53] LABS: C REACTIVE PROTEIN QUANTITATIV < 0.30 MG/DL (0.00-0.30)
[2021-09-11 16:13] LABS: ERYTHROCYTE SEDIMENTATION RATE 7 mm/hr (0-30)
[2021-09-11 16:20] LABS: CK-MB VALUE MASS 2.8 NG/ML (<3.6); MB/CK RELATIVE INDEX 2.26 (< OR =4)
[2021-09-11] MEDS ORDERED: dexameTHASONE 20MG/5ML VIAL (J1100 PER 1MG) IV ONE (16:30)
[2021-09-11 17:21] LABS: CK-MB VALUE MASS 2.7 NG/ML (<3.6); MB/CK RELATIVE INDEX 1.66 (< OR =4)
[2021-09-11 17:29] VITALS: BP 153/84
== END 2021-09-11 18:27 | disposition home or self-care (01) ==
LOC: M ED 12:35
DX: H70.002 Acute mastoiditis without complications, left ear (principal); R42 Dizziness and giddiness; R03.0 Elevated blood-pressure reading, without diagnosis of hypertension; G89.29 Other chronic pain; M54.9 Dorsalgia, unspecified; Z85.3 Personal history of malignant neoplasm of breast; E03.9 Hypothyroidism, unspecified; Z87.442 Personal history of urinary calculi; Z87.19 Personal history of other diseases of the digestive system; Z90.12 Acquired absence of left breast and nipple; Z79.4 Long term (current) use of insulin; Z79.899 Other long term (current) drug therapy
CPT/HCPCS: 70450; 71046; 80053; 82550; 82553; 84443; 84481; 84484; 85025; 85652; 86140; 87631; 93005; 96361; 96374; 99284; J1100

== ENCOUNTER 2021-09-25 10:17 | Emergency (ER) | payer MEDICARE ==
[~2021-09-25] VITALS: Ht 167.6 cm; Wt 79.5 kg
[2021-09-25 11:31] LABS: BASO # 0.1 10^3/uL (0.0-0.2); BASO % 0.4 % (0.0-1.0); EOS # 0.1 10^3/uL (0.0-0.5); EOS % 0.9 % (0.0-3.0); HEMOGLOBIN 13.1 g/dl (12.0-15.5); LYMPH # 1.2 10^3/uL (1.5-5.0); LYMPH % 10.4 % (24.0-44.0); MEAN CORPUSCULAR HEMOGLOBIN 27.9 pg (27.0-33.0); MEAN CORPUSCULAR VOLUME 87.4 fl (80.0-96.0); MONO # 0.6 10^3/uL (0.0-0.8); MONO % 5.5 % (2.0-8.0); NEUTROPHILS # 9.2 10^3/uL (1.5-8.5); NEUTROPHILS % 82.4 % (36.0-66.0); PLATELET COUNT, AUTOMATED 166 10^3/uL (150-450); RED BLOOD COUNT 4.69 10^6/uL (4.00-5.40); WHITE BLOOD COUNT 11.2 10^3/uL (4.0-10.0)
[2021-09-25] MEDS ORDERED: PANT40TA29 PO (11:52)
[2021-09-25] MEDS ORDERED: HOME MED LIST COMPLETE! XX SCH (12:00)
[2021-09-25 12:04] LABS: BLOOD UREA NITROGEN 14 MG/DL (7-18); CALCIUM LEVEL 10.6 MG/DL (8.8-10.2); CARBON DIOXIDE LEVEL 24 MEQ/L (21-32); CHLORIDE LEVEL 111 MEQ/L (98-107); CREATININE FOR GFR 0.73 MG/DL (0.55-1.30); GLOMERULAR FILTRATION RATE > 60.0 (>32); GLUCOSE, FASTING 210 MG/DL (70-100); POTASSIUM SERUM 4.2 MEQ/L (3.5-5.1); SODIUM LEVEL 141 MEQ/L (136-145)
[2021-09-25] MEDS ORDERED: ONDA4TAB6 PO (12:34)
[2021-09-25 13:28] VITALS: BP 168/67
== END 2021-09-25 13:37 | disposition home or self-care (01) ==
LOC: EDBD 10:17 → M ED 10:17
DX: R11.2 Nausea with vomiting, unspecified (principal); E11.9 Type 2 diabetes mellitus without complications; I10 Essential (primary) hypertension; E78.5 Hyperlipidemia, unspecified; E03.9 Hypothyroidism, unspecified; K21.9 Gastro-esophageal reflux disease without esophagitis; Z87.891 Personal history of nicotine dependence; Z79.84 Long term (current) use of oral hypoglycemic drugs; Z79.899 Other long term (current) drug therapy

== ENCOUNTER → 2021-10-09 | Outpatient (CLI) | payer MEDICARE ==
[~2021-10-09] MED LIST changes: +ONDA4TAB6 PO
== END ==
LOC: M WHC 12:46
PROVIDERS: ATTEND Physician Assistant Medical
DX: Z12.31 Encounter for screening mammogram for malignant neoplasm of breast (principal); Z90.12 Acquired absence of left breast and nipple; Z85.3 Personal history of malignant neoplasm of breast; Z80.3 Family history of malignant neoplasm of breast; Z80.42 Family history of malignant neoplasm of prostate; Z92.21 Personal history of antineoplastic chemotherapy

== ENCOUNTER → 2021-10-28 | Outpatient (CLI) | payer MEDICARE ==
[2021-10-28 16:08] LABS: BASO # 0.1 10^3/uL (0.0-0.2); BASO % 1.2 % (0.0-1.0); EOS # 0.3 10^3/uL (0.0-0.5); EOS % 3.8 % (0.0-3.0); HEMATOCRIT 39.1 % (36.0-47.0); HEMOGLOBIN 12.1 g/dl (12.0-15.5); LYMPH # 1.9 10^3/uL (1.5-5.0); LYMPH % 28.7 % (24.0-44.0); MEAN CORPUSCULAR HEMOGLOBIN 28.3 pg (27.0-33.0); MEAN CORPUSCULAR HGB CONC 30.9 g/dl (32.0-36.5); MEAN CORPUSCULAR VOLUME 91.4 fl (80.0-96.0); MONO # 0.6 10^3/uL (0.0-0.8); MONO % 8.8 % (2.0-8.0); NEUTROPHILS # 3.8 10^3/uL (1.5-8.5); NEUTROPHILS % 56.9 % (36.0-66.0); PLATELET COUNT, AUTOMATED 188 10^3/uL (150-450); RED BLOOD COUNT 4.28 10^6/uL (4.00-5.40); WHITE BLOOD COUNT 6.6 10^3/uL (4.0-10.0)
[2021-10-28 16:09] LABS: C REACTIVE PROTEIN QUANTITATIV < 0.30 MG/DL (0.00-0.30); RHEUMATOID FACTOR QUANT < 10.0 IU/ML (<15.0); URIC ACID 5.5 MG/DL (2.6-6.0)
[2021-10-28 16:37] LABS: ERYTHROCYTE SEDIMENTATION RATE 14 mm/hr (0-30)
== END ==
LOC: M ADAMS 11:31
PROVIDERS: ATTEND Physician Assistant
DX: M66.172 Rupture of synovium, left ankle (principal)

== ENCOUNTER 2021-11-25 11:56 | Emergency (ER) | payer OTHER, MEDICARE ==
[~2021-11-25] VITALS: Ht 167.6 cm; Wt 78.6 kg
[2021-11-25] MEDS ORDERED: METH-1164 PO (14:06)
[2021-11-25 14:15] VITALS: BP 147/63
== END 2021-11-25 14:16 | disposition home or self-care (01) ==
LOC: M ED 11:56
DX: S76.011A Strain of muscle, fascia and tendon of right hip, initial encounter (principal); E11.9 Type 2 diabetes mellitus without complications; I10 Essential (primary) hypertension; E03.9 Hypothyroidism, unspecified; Z85.3 Personal history of malignant neoplasm of breast; Z87.442 Personal history of urinary calculi; M16.11 Unilateral primary osteoarthritis, right hip; Z79.4 Long term (current) use of insulin; Z79.84 Long term (current) use of oral hypoglycemic drugs; Z79.899 Other long term (current) drug therapy

== ENCOUNTER → 2022-01-07 | Outpatient (CLI) | payer MEDICARE ==
[~2022-01-07] MED LIST changes: +METH-1164 PO
[2022-01-07 13:48] LABS: BLOOD UREA NITROGEN 13 MG/DL (7-18); CALCIUM LEVEL 9.6 MG/DL (8.8-10.2); CARBON DIOXIDE LEVEL 26 MEQ/L (21-32); CHLORIDE LEVEL 111 MEQ/L (98-107); CREATININE FOR GFR 0.87 MG/DL (0.55-1.30); GLOMERULAR FILTRATION RATE > 60.0 (>32); GLUCOSE, FASTING 224 MG/DL (70-100); MAGNESIUM LEVEL 1.1 MG/DL (1.8-2.4); POTASSIUM SERUM 4.7 MEQ/L (3.5-5.1); SODIUM LEVEL 142 MEQ/L (136-145)
== END ==
LOC: M ADAMS 11:04
PROVIDERS: ATTEND Family Medicine
DX: E87.5 Hyperkalemia (principal)

== ENCOUNTER → 2022-06-23 | Outpatient (REF) | payer MEDICARE ==
[~2022-06-23] MED LIST changes: +NYST-38 PO; +NYST-38 SS; -NYST50SS PO; -NYST50SS SS
== END ==
LOC: M SFHCRHEU 14:25
PROVIDERS: ATTEND Internal Medicine Rheumatology
DX: R76.8 Other specified abnormal immunological findings in serum (principal); M35.3 Polymyalgia rheumatica; M35.00 Sjogren syndrome, unspecified; Z53.9 Procedure and treatment not carried out, unspecified reason

== ENCOUNTER → 2022-06-24 | Outpatient (CLI) | payer MEDICARE | LOC: M ADAMS 11:00 | PROVIDERS: ATTEND Internal Medicine Rheumatology | DX: R76.8 Other specified abnormal immunological findings in serum (principal); M35.3 Polymyalgia rheumatica; M35.00 Sjogren syndrome, unspecified; M19.041 Primary osteoarthritis, right hand; M19.042 Primary osteoarthritis, left hand; M19.071 Primary osteoarthritis, right ankle and foot; M19.072 Primary osteoarthritis, left ankle and foot ==

== ENCOUNTER → 2022-06-25 | Outpatient (REF) | payer MEDICARE | LOC: M SFHCRHEU 10:51 | PROVIDERS: ATTEND Internal Medicine Rheumatology | DX: R76.8 Other specified abnormal immunological findings in serum (principal); M35.3 Polymyalgia rheumatica; Z53.9 Procedure and treatment not carried out, unspecified reason ==

== ENCOUNTER → 2022-07-02 | Outpatient (REF) | payer MEDICARE ==
[2022-07-02 15:09] LABS: APPEARANCE, URINE MANUAL CLEAR (CLEAR); COLOR, URINE MANUAL YELLOW (YELLOW)
[2022-07-02 15:11] LABS: BASO # 0.1 10^3/uL (0.0-0.2); BASO % 0.9 % (0.0-1.0); BILIRUBIN, URINE MANUAL NEGATIVE (NEGATIVE); EOS # 0.3 10^3/uL (0.0-0.5); EOS % 3.5 % (0.0-3.0); GLUCOSE, URINE (UA) MANUAL 2+(250 MG/DL) mg/dL (NEGATIVE); HEMATOCRIT 40.4 % (36.0-47.0); HEMOGLOBIN 12.3 g/dl (12.0-15.5); KETONE, URINE MANUAL NEGATIVE (NEGATIVE); LEUKOCYTE ESTERASE, URINE MAN NEGATIVE (NEGATIVE); LYMPH # 2.5 10^3/uL (1.5-5.0); LYMPH % 33.4 % (24.0-44.0); MEAN CORPUSCULAR HEMOGLOBIN 27.5 pg (27.0-33.0); MEAN CORPUSCULAR HGB CONC 30.4 g/dl (32.0-36.5); MEAN CORPUSCULAR VOLUME 90.4 fl (80.0-96.0); MONO # 0.6 10^3/uL (0.0-0.8); MONO % 8.1 % (2.0-8.0); NEUTROPHILS # 4.1 10^3/uL (1.5-8.5); NEUTROPHILS % 53.8 % (36.0-66.0); NITRITE, URINE MANUAL NEGATIVE (NEGATIVE); PLATELET COUNT, AUTOMATED 190 10^3/uL (150-450); PROTEIN, URINE MANUAL NEGATIVE (NEGATIVE); RED BLOOD COUNT 4.47 10^6/uL (4.00-5.40); UROBILINOGEN, URINE MANUAL NORMAL (NORMAL); WHITE BLOOD COUNT 7.6 10^3/uL (4.0-10.0)
[2022-07-02 15:12] LABS: BLOOD URINE MANUAL NEGATIVE (NEGATIVE)
[2022-07-02 15:41] LABS: C REACTIVE PROTEIN QUANTITATIV < 0.40 MG/DL (<1.0)
[2022-07-02 15:42] LABS: COMPLEMENT C3 156.6 MG/DL (90.0-170.0); COMPLEMENT C4 39.8 MG/DL (12-36)
[2022-07-02 15:45] LABS: CREATININE,RANDOM URINE 71.7 MG/DL; ERYTHROCYTE SEDIMENTATION RATE 27 mm/hr (0-30)
[2022-07-02 15:46] LABS: ALBUMIN 3.9 G/DL (3.2-5.2); ALKALINE PHOSPHATASE 96 U/L (46-116); ALT/SGPT 34 U/L (7.0-40); AST/SGOT 42 U/L (<34); BILIRUBIN,TOTAL 0.7 MG/DL (0.3-1.2); BLOOD UREA NITROGEN 16 MG/DL (9-23); CALCIUM LEVEL 10.6 MG/DL (8.3-10.6); CARBON DIOXIDE LEVEL 27 MMOL/L (20-31); CHLORIDE LEVEL 104 MMOL/L (98-107); GLOMERULAR FILTRATION RATE > 60.0 (>32); GLUCOSE, FASTING 186 MG/DL (74-106); POTASSIUM SERUM 4.8 MMOL/L (3.5-5.1); SODIUM LEVEL 139 MMOL/L (136-145); TOTAL PROTEIN 6.7 G/DL (5.7-8.2)
== END ==
LOC: M SFHCRHEU 10:43
PROVIDERS: ATTEND Internal Medicine Rheumatology
DX: R76.8 Other specified abnormal immunological findings in serum (principal); M35.3 Polymyalgia rheumatica; M35.00 Sjogren syndrome, unspecified

== ENCOUNTER → 2022-08-06 | Outpatient (REF) | payer MEDICARE ==
[~2022-08-06] MED LIST changes: +INSU100I6 INJ; +INSU100I6 SC; -LEVE1INJ5 INJ; -LEVE1INJ5 SC
== END ==
LOC: M LABDRWAD 15:53
PROVIDERS: ATTEND Internal Medicine Rheumatology
DX: R76.8 Other specified abnormal immunological findings in serum (principal); M35.3 Polymyalgia rheumatica; M35.00 Sjogren syndrome, unspecified

== ENCOUNTER → 2022-08-12 | Outpatient (REF) | payer MEDICARE ==
[2022-08-12 13:11] LABS: HEMOGLOBIN A1c 7.6 % (4.0-6.0)
[2022-08-12 13:22] LABS: CREATININE, URINE 118.3 MG/DL; MAU/CREAT RATIO 10.9 MCG/MG (0.0-30.0)
[2022-08-12 13:34] LABS: THYROID STIMULATING HORMONE 2.573 uIU/ML (0.55-4.78); TOTAL 25(OH) VITAMIN D 58.6 NG/ML (20.0-100.0)
[2022-08-12 13:35] LABS: ALBUMIN 3.8 G/DL (3.2-5.2); ALKALINE PHOSPHATASE 85 U/L (46-116); ALT/SGPT 29 U/L (7.0-40); AST/SGOT 31 U/L (<34); BILIRUBIN,TOTAL 0.6 MG/DL (0.3-1.2); BLOOD UREA NITROGEN 17 MG/DL (9-23); CALCIUM LEVEL 10.2 MG/DL (8.3-10.6); CARBON DIOXIDE LEVEL 25 MMOL/L (20-31); CHLORIDE LEVEL 112 MMOL/L (98-107); CHOLESTEROL LEVEL 135 MG/DL (<200); CHOLESTEROL RISK RATIO 2.47 (<5); CREATININE FOR GFR 0.88 MG/DL (0.55-1.30); GLOMERULAR FILTRATION RATE > 60.0 (>32); GLUCOSE, FASTING 146 MG/DL (74-106); HDL CHOLESTEROL 54.5 MG/DL (>40); LDL CHOLESTEROL 62.7 MG/DL (<100); NON-HDL-C 80.5 MG/DL; POTASSIUM SERUM 5.1 MMOL/L (3.5-5.1); SODIUM LEVEL 146 MMOL/L (136-145); TOTAL PROTEIN 6.6 G/DL (5.7-8.2); TRIGLYCERIDES LEVEL 89 MG/DL (<150)
== END ==
LOC: M SFHCADAM 11:09
PROVIDERS: ATTEND Physician Assistant Medical
DX: E78.2 Mixed hyperlipidemia (principal); I10 Essential (primary) hypertension; E03.9 Hypothyroidism, unspecified; K21.9 Gastro-esophageal reflux disease without esophagitis; M35.3 Polymyalgia rheumatica; E55.9 Vitamin D deficiency, unspecified; Z79.899 Other long term (current) drug therapy

== ENCOUNTER 2022-09-26 13:15 | Emergency (ER) | payer MEDICARE ==
[~2022-09-26] VITALS: Ht 167.6 cm; Wt 78.6 kg
[2022-09-26] MEDS ORDERED: KETOROLAC 30 MG/ML 1ML VIAL IV ONE (16:35)
[2022-09-26] MEDS ORDERED: NS 500 ML IV ONE (16:35)
[2022-09-26 16:47] LABS: BASO # 0.1 10^3/uL (0.0-0.2); BASO % 0.7 % (0.0-1.0); EOS # 0.2 10^3/uL (0.0-0.5); EOS % 1.2 % (0.0-3.0); HEMATOCRIT 41.2 % (36.0-47.0); MEAN CORPUSCULAR HEMOGLOBIN 27.7 pg (27.0-33.0); MEAN CORPUSCULAR HGB CONC 31.6 g/dl (32.0-36.5); MEAN CORPUSCULAR VOLUME 87.8 fl (80.0-96.0); MONO # 0.5 10^3/uL (0.0-0.8); MONO % 3.8 % (2.0-8.0); NEUTROPHILS # 9.2 10^3/uL (1.5-8.5); PLATELET COUNT, AUTOMATED 232 10^3/uL (150-450); RED BLOOD COUNT 4.69 10^6/uL (4.00-5.40)
[2022-09-26 16:52] LABS: BILIRUBIN,DIRECT 0.1 MG/DL (<0.4); BILIRUBIN,TOTAL 0.4 MG/DL (0.3-1.2); CALCIUM LEVEL 10.6 MG/DL (8.3-10.6); CREATININE FOR GFR 0.96 MG/DL (0.55-1.30); GLOMERULAR FILTRATION RATE 58.8 (>32); POTASSIUM SERUM 4.7 MMOL/L (3.5-5.1); TOTAL PROTEIN 7.2 G/DL (5.7-8.2)
[2022-09-26] MEDS ORDERED: TAMSULOSIN 0.4 MG CAP PO ONE (17:25)
[2022-09-26 18:03] VITALS: BP 190/110
[2022-09-26] MEDS ORDERED: ONDA4TAB6 PO (18:31)
[2022-09-26] MEDS ORDERED: FLOM0.4C39 PO (18:31)
== END 2022-09-26 18:48 | disposition home or self-care (01) ==
LOC: M ED 13:15
DX: N20.1 Calculus of ureter (principal); E03.9 Hypothyroidism, unspecified; E78.00 Pure hypercholesterolemia, unspecified; K21.9 Gastro-esophageal reflux disease without esophagitis; I10 Essential (primary) hypertension; E11.9 Type 2 diabetes mellitus without complications; Z87.442 Personal history of urinary calculi; Z85.3 Personal history of malignant neoplasm of breast; Z79.4 Long term (current) use of insulin; Z79.899 Other long term (current) drug therapy
CPT/HCPCS: 74176; 80048; 80076; 81001; 83690; 85025; 87086; 96361; 96374; 99284; J1885

== ENCOUNTER → 2023-01-28 | Outpatient (CLI) | payer MEDICARE ==
[~2023-01-28] MED LIST changes: +FLOM0.4C39 PO
== END ==
LOC: M WHC 10:21
PROVIDERS: ATTEND Physician Assistant Medical
DX: Z12.31 Encounter for screening mammogram for malignant neoplasm of breast (principal)

== ENCOUNTER → 2023-02-04 | Outpatient (CLI) | payer MEDICARE | LOC: M ADAMS 09:04 | PROVIDERS: ATTEND Physician Assistant Medical | DX: J98.4 Other disorders of lung (principal); M51.34 Other intervertebral disc degeneration, thoracic region; M35.3 Polymyalgia rheumatica; R76.8 Other specified abnormal immunological findings in serum; M35.00 Sjogren syndrome, unspecified; I10 Essential (primary) hypertension; E03.9 Hypothyroidism, unspecified; E11.42 Type 2 diabetes mellitus with diabetic polyneuropathy ==

== ENCOUNTER → 2023-02-04 | Outpatient (REF) | payer MEDICARE ==
[2023-02-04 15:22] LABS: BASO # 0.1 10^3/uL (0.0-0.2); BASO % 0.8 % (0.0-1.0); EOS # 0.4 10^3/uL (0.0-0.5); EOS % 6.3 % (0.0-3.0); HEMOGLOBIN 11.5 g/dl (12.0-15.5); LYMPH % 31.6 % (24.0-44.0); MEAN CORPUSCULAR HEMOGLOBIN 27.2 pg (27.0-33.0); MEAN CORPUSCULAR HGB CONC 30.3 g/dl (32.0-36.5); MEAN CORPUSCULAR VOLUME 89.8 fl (80.0-96.0); MONO # 0.5 10^3/uL (0.0-0.8); MONO % 8.3 % (2.0-8.0); NEUTROPHILS # 3.3 10^3/uL (1.5-8.5); NEUTROPHILS % 52.2 % (36.0-66.0); PLATELET COUNT, AUTOMATED 212 10^3/uL (150-450); RED BLOOD COUNT 4.23 10^6/uL (4.00-5.40); WHITE BLOOD COUNT 6.4 10^3/uL (4.0-10.0)
[2023-02-04 15:49] LABS: THYROID STIMULATING HORMONE 3.232 uIU/ML (0.55-4.78)
[2023-02-04 15:50] LABS: ERYTHROCYTE SEDIMENTATION RATE 24 mm/hr (0-30)
[2023-02-04 15:52] LABS: ALBUMIN 3.7 G/DL (3.2-5.2); ALKALINE PHOSPHATASE 88 U/L (46-116); ALT/SGPT 34 U/L (7.0-40); AST/SGOT 31 U/L (<34); BILIRUBIN,TOTAL 0.5 MG/DL (0.3-1.2); BLOOD UREA NITROGEN 20 MG/DL (9-23); CALCIUM LEVEL 10.2 MG/DL (8.3-10.6); CARBON DIOXIDE LEVEL 26 MMOL/L (20-31); CHLORIDE LEVEL 109 MMOL/L (98-107); GLOMERULAR FILTRATION RATE > 60.0 (>32); GLUCOSE, FASTING 104 MG/DL (74-106); POTASSIUM SERUM 4.6 MMOL/L (3.5-5.1); SODIUM LEVEL 145 MMOL/L (136-145); TOTAL PROTEIN 6.5 G/DL (5.7-8.2)
[2023-02-05 11:48] LABS: C REACTIVE PROTEIN QUANTITATIV < 0.40 MG/DL (<1.0)
== END ==
LOC: M SFHCADAM 08:37
PROVIDERS: ATTEND Physician Assistant Medical
DX: M35.3 Polymyalgia rheumatica (principal); R76.8 Other specified abnormal immunological findings in serum; M35.00 Sjogren syndrome, unspecified; I10 Essential (primary) hypertension; E03.9 Hypothyroidism, unspecified; E11.42 Type 2 diabetes mellitus with diabetic polyneuropathy

== ENCOUNTER 2023-02-08 23:15 | Emergency (ER) | payer MEDICARE ==
[~2023-02-08] VITALS: Ht 167.6 cm; Wt 78.6 kg
[2023-02-09] MEDS ORDERED: ACETAMINOPHEN 500 MG TAB PO ONE (00:25)
[2023-02-09 01:42] VITALS: BP 189/81; TEMP 97.3; O2SAT 97
== END 2023-02-09 02:01 | disposition home or self-care (01) ==
LOC: M ED 23:15
DX: S63.92XA Sprain of unspecified part of left wrist and hand, initial encounter (principal); S93.401A Sprain of unspecified ligament of right ankle, initial encounter; S83.91XA Sprain of unspecified site of right knee, initial encounter; I10 Essential (primary) hypertension; C50.919 Malignant neoplasm of unspecified site of unspecified female breast; E78.5 Hyperlipidemia, unspecified; W01.0XXA Fall on same level from slipping, tripping and stumbling without subsequent striking against object, initial encounter; Z87.442 Personal history of urinary calculi; Y92.009 Unspecified place in unspecified non-institutional (private) residence as the place of occurrence of the external cause; Z79.1 Long term (current) use of non-steroidal anti-inflammatories (NSAID); Z79.4 Long term (current) use of insulin; Z79.899 Other long term (current) drug therapy

== ENCOUNTER → 2023-10-26 | Outpatient (REF) | payer MEDICARE ==
[~2023-10-26] MED LIST changes: +ONDA-282 PO; -ONDA4TAB6 PO
[2023-10-26 18:48] LABS: C REACTIVE PROTEIN QUANTITATIV < 0.40 MG/DL (<1.0)
[2023-10-26 18:50] LABS: ALBUMIN 3.7 G/DL (3.2-5.2); ALKALINE PHOSPHATASE 106 U/L (46-116); ALT/SGPT 31 U/L (7.0-40); APPEARANCE, URINE CLEAR (CLEAR); AST/SGOT 25 U/L (<34); BACTERIA, URINE AUTO NEGATIVE (NEGATIVE); BILIRUBIN, URINE AUTO NEGATIVE (NEGATIVE); BILIRUBIN,TOTAL 0.4 MG/DL (0.3-1.2); BLOOD UREA NITROGEN 23 MG/DL (9-23); BLOOD, URINE BLOOD NEGATIVE (NEGATIVE); CALCIUM LEVEL 10.9 MG/DL (8.3-10.6); CARBON DIOXIDE LEVEL 24 MMOL/L (20-31); CHLORIDE LEVEL 111 MMOL/L (98-107); COLOR, URINE YELLOW (YELLOW); CREATININE FOR GFR 0.88 MG/DL (0.55-1.30); GLOMERULAR FILTRATION RATE > 60.0 (>32); GLUCOSE, FASTING 84 MG/DL (74-106); GLUCOSE, URINE (UA) AUTO NEGATIVE (NEGATIVE); KETONE, URINE AUTO NEGATIVE (NEGATIVE); LEUKOCYTE ESTERASE, URINE AUTO TRACE (NEGATIVE); MUCUS, URINE SMALL (NEGATIVE); NITRITE, URINE AUTO NEGATIVE (NEGATIVE); POTASSIUM SERUM 5.4 MMOL/L (3.5-5.1); PROTEIN, URINE AUTO NEGATIVE (NEGATIVE); RBC, URINE AUTO 0 /HPF (0-3); SODIUM LEVEL 143 MMOL/L (136-145); SPECIFIC GRAVITY URINE AUTO 1.013 (1.002-1.035); SQUAMOUS EPITHELIAL CELL UR AU 1 /HPF (0-6); TOTAL PROTEIN 6.8 G/DL (5.7-8.2); UROBILINOGEN, URINE AUTO 0.2 mg/dL (0.0-2.0); WBC, URINE AUTO 1 /HPF (0-3)
[2023-10-26 18:51] LABS: COMPLEMENT C3 158.8 MG/DL (90.0-170.0); COMPLEMENT C4 34.9 MG/DL (12-36)
[2023-10-26 18:52] LABS: BASO # 0.1 10^3/uL (0.0-0.2); BASO % 1.1 % (0.0-1.0); EOS # 0.4 10^3/uL (0.0-0.5); EOS % 4.4 % (0.0-3.0); HEMATOCRIT 39.7 % (36.0-47.0); HEMOGLOBIN 11.7 g/dl (12.0-15.5); LYMPH # 3.1 10^3/uL (1.5-5.0); LYMPH % 35.9 % (24.0-44.0); MEAN CORPUSCULAR HEMOGLOBIN 26.4 pg (27.0-33.0); MEAN CORPUSCULAR HGB CONC 29.5 g/dl (32.0-36.5); MEAN CORPUSCULAR VOLUME 89.6 fl (80.0-96.0); MONO # 0.7 10^3/uL (0.0-0.8); MONO % 7.6 % (2.0-8.0); NEUTROPHILS # 4.4 10^3/uL (1.5-8.5); NEUTROPHILS % 50.8 % (36.0-66.0); PLATELET COUNT, AUTOMATED 217 10^3/uL (150-450); RED BLOOD COUNT 4.43 10^6/uL (4.00-5.40); WHITE BLOOD COUNT 8.6 10^3/uL (4.0-10.0)
[2023-10-26 19:01] LABS: ERYTHROCYTE SEDIMENTATION RATE 28 mm/hr (0-30)
[2023-10-26 19:09] LABS: TOTAL PROTEIN,RANDOM URINE 7.2 MG/DL (0.0-14.0)
[2023-10-26 19:15] LABS: CREATININE,RANDOM URINE 56.9 MG/DL
== END ==
LOC: M SFHCADAM 12:20
PROVIDERS: ATTEND Physician Assistant Medical
DX: R76.8 Other specified abnormal immunological findings in serum (principal); M35.3 Polymyalgia rheumatica; M35.00 Sjogren syndrome, unspecified

== ENCOUNTER → 2023-11-04 | Outpatient (REF) | payer MEDICARE ==
[2023-11-04 14:22] LABS: BLOOD UREA NITROGEN 16 MG/DL (9-23); CALCIUM LEVEL 10.7 MG/DL (8.3-10.6); CARBON DIOXIDE LEVEL 25 MMOL/L (20-31); CHLORIDE LEVEL 111 MMOL/L (98-107); CREATININE FOR GFR 0.85 MG/DL (0.55-1.30); GLOMERULAR FILTRATION RATE > 60.0 (>32); GLUCOSE, FASTING 84 MG/DL (74-106); SODIUM LEVEL 145 MMOL/L (136-145); THYROID STIMULATING HORMONE 4.403 uIU/ML (0.55-4.78)
== END ==
LOC: M SFHCADAM 09:10
PROVIDERS: ATTEND Physician Assistant Medical
DX: E87.5 Hyperkalemia (principal); E03.9 Hypothyroidism, unspecified

== ENCOUNTER → 2024-02-02 | Outpatient (CLI) | payer MEDICARE | LOC: M WHC 10:20 | PROVIDERS: ATTEND Physician Assistant Medical | DX: Z12.31 Encounter for screening mammogram for malignant neoplasm of breast (principal); R92.331 Mammographic heterogeneous density, right breast; Z85.3 Personal history of malignant neoplasm of breast; Z90.12 Acquired absence of left breast and nipple ==

== ENCOUNTER → 2024-05-09 | Outpatient (REF) | payer MEDICARE ==
[2024-05-09 18:31] LABS: BASO # 0.1 10^3/uL (0.0-0.2); BASO % 0.6 % (0.0-1.0); EOS # 0.5 10^3/uL (0.0-0.5); EOS % 4.8 % (0.0-3.0); HEMATOCRIT 37.2 % (36.0-47.0); HEMOGLOBIN 11.1 g/dl (12.0-15.5); LYMPH # 2.6 10^3/uL (1.5-5.0); LYMPH % 27.2 % (24.0-44.0); MEAN CORPUSCULAR HEMOGLOBIN 26.1 pg (27.0-33.0); MEAN CORPUSCULAR HGB CONC 29.8 g/dl (32.0-36.5); MEAN CORPUSCULAR VOLUME 87.5 fl (80.0-96.0); MONO # 0.7 10^3/uL (0.0-0.8); MONO % 7.1 % (2.0-8.0); NEUTROPHILS # 5.6 10^3/uL (1.5-8.5); PLATELET COUNT, AUTOMATED 235 10^3/uL (150-450); RED BLOOD COUNT 4.25 10^6/uL (4.00-5.40); WHITE BLOOD COUNT 9.4 10^3/uL (4.0-10.0)
[2024-05-09 18:47] LABS: ALBUMIN 3.5 G/DL (3.2-5.2); ALKALINE PHOSPHATASE 102 U/L (35-104); ALT/SGPT 22 U/L (7.0-40); AST/SGOT 24 U/L (<34); BILIRUBIN,TOTAL 0.3 MG/DL (0.3-1.2); BLOOD UREA NITROGEN 17 MG/DL (9-23); CALCIUM LEVEL 10.7 MG/DL (8.3-10.6); CARBON DIOXIDE LEVEL 24 MMOL/L (20-31); CHLORIDE LEVEL 114 MMOL/L (98-107); CHOLESTEROL LEVEL 172 MG/DL (<200); CHOLESTEROL RISK RATIO 2.86 (<5); CREATININE FOR GFR 0.91 MG/DL (0.55-1.30); GLOMERULAR FILTRATION RATE > 60.0 (>32); GLUCOSE, FASTING 140 MG/DL (74-106); HDL CHOLESTEROL 60.1 MG/DL (>40); LDL CHOLESTEROL 76.1 MG/DL (<100); NON-HDL-C 111.9 MG/DL; POTASSIUM SERUM 5.7 MMOL/L (3.5-5.1); SODIUM LEVEL 146 MMOL/L (136-145); TOTAL PROTEIN 6.9 G/DL (5.7-8.2); TRIGLYCERIDES LEVEL 179 MG/DL (<150)
[2024-05-09 18:49] LABS: THYROID STIMULATING HORMONE 2.558 uIU/ML (0.55-4.78); TOTAL 25(OH) VITAMIN D 83.3 NG/ML (20.0-100.0)
[2024-05-09 19:59] LABS: HEMOGLOBIN A1c 7.2 % (4.0-6.0)
== END ==
LOC: M SFHCADAM 15:13
PROVIDERS: ATTEND Physician Assistant Medical
DX: E11.42 Type 2 diabetes mellitus with diabetic polyneuropathy (principal); E78.2 Mixed hyperlipidemia; E03.9 Hypothyroidism, unspecified; E55.9 Vitamin D deficiency, unspecified

== ENCOUNTER → 2024-05-16 | Outpatient (REF) | payer MEDICARE ==
[2024-05-16 19:16] LABS: BLOOD UREA NITROGEN 18 MG/DL (9-23); CALCIUM LEVEL 10.5 MG/DL (8.3-10.6); CARBON DIOXIDE LEVEL 23 MMOL/L (20-31); CHLORIDE LEVEL 110 MMOL/L (98-107); CREATININE FOR GFR 0.87 MG/DL (0.55-1.30); GLOMERULAR FILTRATION RATE > 60.0 (>32); GLUCOSE, FASTING 124 MG/DL (74-106); POTASSIUM SERUM 5.2 MMOL/L (3.5-5.1); SODIUM LEVEL 144 MMOL/L (136-145)
== END ==
LOC: M LABDRWAD 17:17
PROVIDERS: ATTEND Physician Assistant Medical
DX: E83.52 Hypercalcemia (principal); E87.5 Hyperkalemia

== ENCOUNTER → 2024-06-02 | Outpatient (REF) | payer MEDICARE ==
[2024-06-02 13:24] LABS: BLOOD UREA NITROGEN 16 MG/DL (9-23); CALCIUM LEVEL 11.1 MG/DL (8.3-10.6); CARBON DIOXIDE LEVEL 27 MMOL/L (20-31); CHLORIDE LEVEL 109 MMOL/L (98-107); CREATININE FOR GFR 0.84 MG/DL (0.55-1.30); GLOMERULAR FILTRATION RATE > 60.0 (>32); GLUCOSE, FASTING 122 MG/DL (74-106); POTASSIUM SERUM 5.2 MMOL/L (3.5-5.1); SODIUM LEVEL 143 MMOL/L (136-145)
== END ==
LOC: M SFHCADAM 11:06
PROVIDERS: ATTEND Physician Assistant Medical
DX: E87.5 Hyperkalemia (principal)

== ENCOUNTER → 2024-06-03 | Outpatient (REF) | payer MEDICARE | LOC: M SFHCADAM 09:32 | PROVIDERS: ATTEND Physician Assistant Medical | DX: Z53.9 Procedure and treatment not carried out, unspecified reason (principal) ==

== ENCOUNTER → 2024-06-03 | Outpatient (CLI) | payer MEDICARE ==
[2024-06-03 10:52] LABS: IONIZED CALCIUM 5.3 MG/DL (4.5-5.3)
[2024-06-03 12:00] LABS: PTH INTACT 98.8 PG/ML (18.5-88.0)
== END ==
LOC: M LAB 10:04
PROVIDERS: ATTEND Physician Assistant Medical
DX: E83.52 Hypercalcemia (principal)

== ENCOUNTER → 2024-08-16 | Outpatient (REF) | payer MEDICARE ==
[2024-08-16 15:18] LABS: BLOOD UREA NITROGEN 13 MG/DL (9-23); CARBON DIOXIDE LEVEL 26 MMOL/L (20-31); CHLORIDE LEVEL 108 MMOL/L (98-107); CREATININE FOR GFR 0.87 MG/DL (0.55-1.30); GLOMERULAR FILTRATION RATE > 60.0 (>32); GLUCOSE, FASTING 108 MG/DL (74-106); PHOSPHORUS LEVEL 3.6 MG/DL (2.4-5.1); POTASSIUM SERUM 4.9 MMOL/L (3.5-5.1); PTH INTACT 135.9 PG/ML (18.5-88.0); SODIUM LEVEL 142 MMOL/L (136-145); TOTAL 25(OH) VITAMIN D 94.5 NG/ML (20.0-100.0)
== END ==
LOC: M LABDRWAD 12:46
PROVIDERS: ATTEND Internal Medicine Endocrinology, Diabetes & Metabolism
DX: E21.0 Primary hyperparathyroidism (principal)

== ENCOUNTER → 2024-11-23 | Outpatient (REF) | payer MEDICARE ==
[~2024-11-23] MED LIST changes: -FLOM0.4C39 PO; -SUCR1ORA2 PO; +SUCR1ORA20 PO; +TAMS-18 PO
[2024-11-23 14:27] LABS: BASO # 0.1 10^3/uL (0.0-0.2); BASO % 0.9 % (0.0-1.0); EOS # 0.2 10^3/uL (0.0-0.5); EOS % 2.0 % (0.0-3.0); LYMPH # 2.4 10^3/uL (1.5-5.0); LYMPH % 26.6 % (24.0-44.0); MONO # 0.7 10^3/uL (0.0-0.8); MONO % 7.4 % (2.0-8.0); NEUTROPHILS # 5.6 10^3/uL (1.5-8.5); NEUTROPHILS % 62.9 % (36.0-66.0); PLATELET COUNT, AUTOMATED 268 10^3/uL (150-450)
[2024-11-23 14:45] LABS: ESTIMATED AVERAGE GLUCOSE 171.0 MG/DL (60-110)
[2024-11-23 14:52] LABS: ALT/SGPT 16.0 U/L (7.0-40); AST/SGOT 21.0 U/L (<34); CALCIUM LEVEL 9.1 MG/DL (8.3-10.6); CARBON DIOXIDE LEVEL 22.0 MMOL/L (20-31); CHLORIDE LEVEL 108.0 MMOL/L (98-107); CHOLESTEROL LEVEL 142.0 MG/DL (<200); CHOLESTEROL RISK RATIO 2.3 (<5); CREATININE FOR GFR 0.91 MG/DL (0.55-1.30); GLOMERULAR FILTRATION RATE 61.1 (>32); LDL CHOLESTEROL 53.3 MG/DL (<100); NON-HDL-C 80.5 MG/DL; POTASSIUM SERUM 4.3 MMOL/L (3.5-5.1); SODIUM LEVEL 146.0 MMOL/L (136-145); TRIGLYCERIDES LEVEL 136.0 MG/DL (<150)
[2024-11-23 14:54] LABS: FREE T4 1.14 NG/DL (0.89-1.76); TOTAL 25(OH) VITAMIN D 73.1 NG/ML (20.0-100.0)
== END ==
LOC: M SFHCADAM 09:16
PROVIDERS: ATTEND Physician Assistant Medical
DX: E11.42 Type 2 diabetes mellitus with diabetic polyneuropathy (principal); I10 Essential (primary) hypertension; E78.2 Mixed hyperlipidemia; E03.9 Hypothyroidism, unspecified; K21.9 Gastro-esophageal reflux disease without esophagitis; E55.9 Vitamin D deficiency, unspecified

== ENCOUNTER → 2024-12-08 | Outpatient (REF) | payer MEDICARE ==
[2024-12-08 16:10] LABS: CALCIUM LEVEL 9.2 MG/DL (8.3-10.6); CARBON DIOXIDE LEVEL 25.0 MMOL/L (20-31); CHLORIDE LEVEL 106.0 MMOL/L (98-107); CREATININE FOR GFR 1.21 MG/DL (0.55-1.30); GLOMERULAR FILTRATION RATE 43.4 (>32); POTASSIUM SERUM 4.6 MMOL/L (3.5-5.1); SODIUM LEVEL 143.0 MMOL/L (136-145)
== END ==
LOC: M SFHCADAM 08:46
PROVIDERS: ATTEND Physician Assistant Medical
DX: R60.0 Localized edema (principal)

== ENCOUNTER → 2024-12-19 | Outpatient (CLI) | payer MEDICARE ==
[2024-12-19 17:36] LABS: CALCIUM LEVEL 8.5 MG/DL (8.3-10.6); CARBON DIOXIDE LEVEL 25.0 MMOL/L (20-31); CHLORIDE LEVEL 107.0 MMOL/L (98-107); CREATININE FOR GFR 1.1 MG/DL (0.55-1.30); GLOMERULAR FILTRATION RATE 48.6 (>32); POTASSIUM SERUM 4.1 MMOL/L (3.5-5.1); PTH INTACT 117.5 PG/ML (18.5-88.0); SODIUM LEVEL 143.0 MMOL/L (136-145)
[2024-12-19 17:39] LABS: TOTAL 25(OH) VITAMIN D 57.1 NG/ML (20.0-100.0)
== END ==
LOC: M LABDRWAD 11:38
PROVIDERS: ATTEND Nurse Practitioner Family
DX: E21.0 Primary hyperparathyroidism (principal); E55.9 Vitamin D deficiency, unspecified

== ENCOUNTER → 2025-01-03 | Outpatient (REF) | payer MEDICARE ==
[2025-01-03 14:48] LABS: CALCIUM LEVEL 8.5 MG/DL (8.3-10.6); CARBON DIOXIDE LEVEL 27.0 MMOL/L (20-31); CHLORIDE LEVEL 108.0 MMOL/L (98-107); CREATININE FOR GFR 1.15 MG/DL (0.55-1.30); GLOMERULAR FILTRATION RATE 46.1 (>32); POTASSIUM SERUM 4.8 MMOL/L (3.5-5.1); SODIUM LEVEL 144.0 MMOL/L (136-145)
[2025-01-06 14:47] LABS: MAGNESIUM LEVEL 1.4 MG/DL (1.8-2.4)
== END ==
LOC: M LABWUC 13:11
PROVIDERS: ATTEND Nurse Practitioner Family
DX: E21.0 Primary hyperparathyroidism (principal)

== ENCOUNTER → 2025-01-17 | Outpatient (REF) | payer MEDICARE ==
[2025-01-17 13:19] LABS: COMPLEMENT C4 37.5 MG/DL (12-36)
[2025-01-20 09:47] LABS: DRVV SCREEN 34.5 SECONDS
[2025-01-20 09:51] LABS: PTT LUPUS TYPE ANTICOAG SCREEN 0.91 (0-1.20)
[2025-01-20 13:49] LABS: HLA-B27 Negative (Negative)
[2025-01-21 11:03] LABS: ANTI DS-DNA AB Negative (Negative)
== END ==
LOC: M SFHCADAM 09:23
PROVIDERS: ATTEND Physician Assistant Medical
DX: R76.8 Other specified abnormal immunological findings in serum (principal); Z51.81 Encounter for therapeutic drug level monitoring

== ENCOUNTER → 2025-03-29 | Outpatient (CLI) | payer MEDICARE | LOC: M PLAIMG 10:15 | PROVIDERS: ATTEND Physician Assistant Medical | DX: R01.1 Cardiac murmur, unspecified (principal) ==

== ENCOUNTER 2025-04-07 19:16 | Emergency (ER) | payer MEDICARE ==
[~2025-04-07] VITALS: Ht 167.6 cm; Wt 84.0 kg
[2025-04-07] MEDS: KETOROLAC 30 MG/ML 1 ML VIAL IM ONE (21:20)
[2025-04-07] MEDS: LIDOCAINE 5% PATCH TD ONE (21:20)
[2025-04-07] MEDS ORDERED: LIDO1ADH93 TOP (21:22)
[2025-04-07 21:30] VITALS: BP 152/65; TEMP 97.5; O2SAT 94
== END 2025-04-07 21:32 | disposition home or self-care (01) ==
LOC: M ED 19:16
DX: S16.1XXA Strain of muscle, fascia and tendon at neck level, initial encounter (principal); W01.198A Fall on same level from slipping, tripping and stumbling with subsequent striking against other object, initial encounter; M43.12 Spondylolisthesis, cervical region; E11.9 Type 2 diabetes mellitus without complications; I10 Essential (primary) hypertension; E03.9 Hypothyroidism, unspecified; Z87.442 Personal history of urinary calculi; Y92.000 Kitchen of unspecified non-institutional (private) residence as the place of occurrence of the external cause; Y93.89 Activity, other specified; Y99.9 Unspecified external cause status; Z79.1 Long term (current) use of non-steroidal anti-inflammatories (NSAID); Z79.899 Other long term (current) drug therapy; Z79.4 Long term (current) use of insulin
CPT/HCPCS: 70450; 72125; 96372; 99283; J1885